=== PATIENT | male | born 1975 | race Caucasian/White ===

== ENCOUNTER 2018-10-01 15:35 | Inpatient (IN) | payer OTHER ==
[2018-10-01 19:27] VITALS: BMI 22.4
--- NOTE | 2018-10-01 19:53 | HP ---
CIWA Score Nausea/Vomitin Muscle Tremors: 3 Anxiety: 2 Agitation: 2 Paroxysmal Sweats: 2 Orientation: 0-Oriented Tacttile Disturbances: 2-Mild Itch/Numbness/Burn Auditory Disturbances: 2-Mild Harshness/Frighten Visual Disturbances: 2-Mild Sensitivity Headache: 1-Very Mild CIWA-Ar Total Score: 18 - Admission Criteria OASAS Guidelines: Admission for Medically Managed Detox: Requires at least one of the followin. CIWA greater than 12 2. Seizures within the past 24 hours 3. Delirium tremens within the past 24 hours 4. Hallucinations within the past 24 hours 5. Acute intervention needed for co occurring medical disorder 6. Acute intervention needed for co occurring psychiatric disorder 7. Severe withdrawal that cannot be handled at a lower level of care (continued vomiting, continued diarrhea, abnormal vital signs) requiring intravenous medication and/or fluids 8. Admission ROS BHS - HPI Chief Complaint: DEPENDENT ON ETOH AND OCCASIONALLY COCAINE ON 160 MGS. OF MMTP - LAST DOES THIS AM Allergies/Adverse Reactions: Allergies Allergy/AdvReac Type Severity Reaction Status Date / Time No Known Allergies Allergy Verified 10/01/18 18:12 History of Present Illness: THE PT. IS REQUESTING ADMISSION TO THE DETOX UNIT AND CAME FOR H AND PE - Ebola screening Have you traveled outside of the country in the last 21 days: No Have you had contact with anyone from an Ebola affected area: No Have you been sick,other than usual withdrawal symptoms: No Do you have a fever: No - Review of Systems Constitutional: See HPI, Malaise, Weakness EENT: reports: See HPI Respiratory: reports: See HPI Cardiac: reports: See HPI GI: reports: See HPI, Nausea, Vomiting, Abdominal cramping : reports: No Symptoms Reported, See HPI Musculoskeletal: reports: See HPI, Muscle Pain, Muscle Weakness Integumentary: reports: See HPI, Sweating Neuro: reports: See HPI, Headache, Tremors, Weakness Endocrine: reports: See HPI Hematology: reports: See HPI Psychiatric: reports: Judgement Intact, Orientated x3, Anxious, Depressed Patient History - Patient Medical History Hx Human Immunodeficiency Virus (HIV): No Hx Hepatitis C: Yes Hx Bipolar Disorder: Yes - Patient Surgical History Hx Orthopedic Surgery: Yes (SURGERY FOR C3-6 FRACTURES - 8 MONTHS AGO) Other Surgical History: DEVELOPED WEAKNESS IN RUL - Smoking Cessation Smoking history: Current every day smoker Have you smoked in the past 12 months: Yes Aproximately how many cigarettes per day: 10 Hx Chewing Tobacco Use: No Initiated information on smoking cessation: Yes 'Breaking Loose' booklet given: 10/01/18 - Substance & Tx. History Hx Alcohol Use: Yes Hx Substance Use: Yes Substance Use Type: Alcohol, Cocaine, Prescribed Hx Substance Use Treatment: Yes - Substances abused Alcohol Substance route: Oral Frequency: Daily Amount used: 2 PINTS VODKA + 15 x 24 OZ BEER Age of first use: 13 Date of last use: 10/01/18 Cocaine Substance route: Inhalation Frequency: 1-2 times per week Amount used: $20/each time Age of first use: 17 Date of last use: 09/27/18 Family Disease History - Family Disease History Family History: Denies Family Disease History: Other: Father (ETOH DEPENDENT) Admission Physical Exam BHS - Vital Signs Vital Signs: Vital Signs - 24 hr 10/01/18 10/01/18 18:10 19:25 Temperature 97.2 F L 97.2 F L Pulse Rate 66 66 Respiratory 18 18 Rate Blood Pressure 99/62 99/62 - Physical General Appearance: Yes: No Apparent Distress, Nourished, Appropriately Dressed , Alcohol on Breath, Tremorous, Sweating, Anxious HEENTM: Yes: Hearing grossly Normal, Normocephalic, Normal Voice, SIDRA, Pharynx Normal Respiratory: Yes: Chest Non-Tender, Lungs Clear, Normal Breath Sounds, No Respiratory Distress, No Accessory Muscle Use Neck: Yes: No masses,lesions,Nodules, Supple, Trachea in good position Breast: Yes: Breast Exam Deferred, Axillae without masses Cardiology: Yes: Regular Rhythm, Regular Rate, S1, S2 Abdominal: Yes: Normal Bowel Sounds, Non Tender, Flat Back: Yes: Normal Inspection Extremities: Yes: Normal Capillary Refill, Non-Tender, Tremors 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 FORE ARM AND HAND - OLD++ - Diagnostic (1) EtOH dependence Current Visit: Yes Status: Chronic Qualifiers: Substance use status: uncomplicated Qualified Code(s): F10.20 - Alcohol dependence, uncomplicated (2) Cocaine dependence Current Visit: Yes Status: Chronic Qualifiers: Substance use status: uncomplicated Qualified Code(s): F14.20 - Cocaine dependence, uncomplicated (3) Nicotine dependence Current Visit: Yes Status: Chronic Qualifiers: Nicotine product type: cigarettes Substance use status: uncomplicated Qualified Code(s): F17.210 - Nicotine dependence, cigarettes, uncomplicated (4) Hepatitis C Current Visit: Yes Status: Chronic (5) Bipolar 1 disorder Current Visit: Yes Status: Chronic (6) Anxiety disorder Current Visit: Yes Status: Chronic Qualifiers: Anxiety disorder type: generalized anxiety disorder Qualified Code(s): F41.1 - Generalized anxiety disorder Cleared for Admission S - Detox or Rehab [facility] Level of Care: Medically Managed Detox Regimen/Protocol: Librium Breathalyzer - Breathalyzer Breathalyzer: 0.109 Urine Drug Screen - Test Device Lot number: [id number] Expiration date: 05/04/20 - Control Is test valid?: Yes - Results Drug screen NEGATIVE: No Urine drug screen results: ADELA-Cocaine, FEN-Fentanyl, MOP-Opiates, MTD-Methadone , BZO-Benzodiazepines Inpatient Rehab Admission - Rehab Decision to Admit Inpatient rehab admission?: No
[2018-10-01] MEDS ORDERED: MAGNESIUM CITRATE 300 ML BOTTLE PO PRN (20:01)
[2018-10-01] MEDS ORDERED: MAG HYDROX/AL HYDROX/SIMETH 30 ML UNIT-DOSE CUP PO PRN (20:01)
[2018-10-01] MEDS ORDERED: hydrOXYzine PAMOATE 25 MG CAPSULE (FP) PO PRN (20:01)
[2018-10-01] MEDS ORDERED: ACETAMINOPHEN 325 MG TABLET (FP) PO PRN ×2 (20:01)
[2018-10-01] MEDS ORDERED: NICOTINE POLACRILEX 2 MG GUM BUC PRN (20:01)
[2018-10-01] MEDS ORDERED: MAGNESIUM HYDROX 2400MG/30ML ORAL SUSPENSION 30 ML CUP PO PRN (20:01)
[2018-10-01] MEDS ORDERED: METHOCARBAMOL 500 MG TABLET PO PRN (20:01)
[2018-10-01] MEDS ORDERED: MELATONIN 5 MG TABLETS PO PRN (20:01)
[2018-10-01] MEDS ORDERED: BISMUTH SUBSALICYLATE 524 MG/30 ML UD PO PRN (20:01)
[2018-10-01] MEDS ORDERED: chlordiazePOXIDE HCL 10 MG CAPSULE PO PRN (20:01)
[2018-10-01] MEDS ORDERED: MENTHOL/PHENOL 1 EACH UD MM PRN (20:01)
[2018-10-01] MEDS ORDERED: IBUPROFEN 400 MG TABLET (FP) PO PRN (20:01)
[2018-10-01] MEDS: THIAMINE HCL 100 MG TABLET (FP) PO SCH (21:28)
[2018-10-01] MEDS: chlordiazePOXIDE HCL 25 MG CAPSULE PO SCH (21:28)
[2018-10-02] MEDS: chlordiazePOXIDE HCL 25 MG CAPSULE PO SCH ×2 (05:49→12:57)
[2018-10-02 09:50] LABS: HEMATOCRIT 34.8 % (35.4-49); HEMOGLOBIN 10.9 GM/dL (11.7-16.9); MCH 22.6 pg (25.7-33.7); MCHC 31.3 g/dl (32.0-35.9); MEAN CELL VOLUME 72.3 fl (80-96); MEAN PLT VOLUME 8.8 fl (7.5-11.1); PLATELET COUNT 243 K/MM3 (134-434); RBC 4.82 M/mm3 (4.00-5.60); RDW 16.5 % (11.9-15.9); WHITE BLOOD COUNT 3.4 K/mm3 (4.0-10.0)
[2018-10-02 09:54] LABS: ALBUMIN 3.1 g/dl (3.4-5.0); ALK PHOS 131 U/L (45-117); ANION GAP 5 MMOL/L (8-16); BILIRUBIN,TOTAL 0.6 mg/dL (0.2-1); BLOOD UREA NITROGEN 10 mg/dL (7-18); CALCIUM 8.5 mg/dL (8.5-10.1); CHLORIDE 99 mmol/L (98-107); CO2 33 mmol/L (21-32); CREATININE 0.9 mg/dL (0.55-1.3); GLUCOSE,RANDOM 80 mg/dL (74-106); POTASSIUM 4.1 mmol/L (3.5-5.1); SGOT/AST 141 U/L (15-37); SGPT/ALT 85 U/L (13-61); SODIUM 137 mmol/L (136-145); TOT PROT 6.9 g/dl (6.4-8.2)
[2018-10-02] MEDS ORDERED: METHADONE HCL 40 MG DISPERSABLE TABLET PO ONE (10:00)
[2018-10-02] MEDS: NICOTINE 14 MG/24 HOURS TOPICAL PATCH TD SCH (10:33)
[2018-10-02] MEDS: PRENATAL VITAMINS W/ FOLIC ACID TABLET (FP) PO SCH (10:36)
--- NOTE | 2018-10-02 15:27 | PN ---
[facility] CIWA - CIWA Score Nausea/Vomitin-Mild Nausea/No Vomiting Muscle Tremors: 4-Moderate,w/Arms Extend Anxiety: 3 Agitation: 3 Paroxysmal Sweats: 1-Minimal Palms Moist Orientation: 1-Uncertain about Date Tacttile Disturbances: 0-None Auditory Disturbances: 0-None Visual Disturbances: 0-None Headache: 0-None Present CIWA-Ar Total Score: 13 S Progress Note (SOAP) Subjective: received methadon 160 mg po today feeling ok less body ache tolerate food and fluid well Objective: 10/02/18 15:25 Vital Signs Temperature 97.2 F L 10/02/18 14:11 Pulse Rate 65 10/02/18 14:11 Respiratory Rate 18 10/02/18 14:11 Blood Pressure 109/73 10/02/18 14:11 O2 Sat by Pulse Oximetry (%) Laboratory Last Values WBC 3.4 K/mm3 (4.0-10.0) L 10/02/18 07:00 RBC 4.82 M/mm3 (4.00-5.60) 10/02/18 07:00 Hgb 10.9 GM/dL (11.7-16.9) L 10/02/18 07:00 Hct 34.8 % (35.4-49) L 10/02/18 07:00 MCV 72.3 fl (80-96) L 10/02/18 07:00 MCH 22.6 pg (25.7-33.7) L 10/02/18 07:00 MCHC 31.3 g/dl (32.0-35.9) L 10/02/18 07:00 RDW 16.5 % (11.9-15.9) H 10/02/18 07:00 Plt Count 243 K/MM3 (134-434) 10/02/18 07:00 MPV 8.8 fl (7.5-11.1) 10/02/18 07:00 Sodium 137 mmol/L (136-145) 10/02/18 07:00 Potassium 4.1 mmol/L (3.5-5.1) 10/02/18 07:00 Chloride 99 mmol/L (98-107) 10/02/18 07:00 Carbon Dioxide 33 mmol/L (21-32) H 10/02/18 07:00 Anion Gap 5 MMOL/L (8-16) L 10/02/18 07:00 BUN 10 mg/dL (7-18) 10/02/18 07:00 Creatinine 0.9 mg/dL (0.55-1.3) 10/02/18 07:00 Creat Clearance w eGFR 91.25 (>60) 10/02/18 07:00 Random Glucose 80 mg/dL (74-106) 10/02/18 07:00 Calcium 8.5 mg/dL (8.5-10.1) 10/02/18 07:00 Total Bilirubin 0.6 mg/dL (0.2-1) 10/02/18 07:00 AST 141 U/L (15-37) H 10/02/18 07:00 ALT 85 U/L (13-61) H 10/02/18 07:00 Alkaline Phosphatase 131 U/L (45-117) H 10/02/18 07:00 Total Protein 6.9 g/dl (6.4-8.2) 10/02/18 07:00 Albumin 3.1 g/dl (3.4-5.0) L 10/02/18 07:00 RPR Titer Nonreactive (NONREACTIVE) 10/02/18 07:00 lab noted repeat ast Assessment: 10/02/18 15:26 alcohol withdrawal sx liver enzyme elevation Plan: continue detox
--- NOTE | 2018-10-02 18:24 | CONSULT ---
[facility] Psychiatric Consult - Data Date of interview: 10/02/18 Admission source: [facility] Identifying data: Patient is approached on THREE separate occasions for the psychiatric interview. Declines. " I am good. I don't need to see psychiatrists ".
[2018-10-02] MEDS: chlordiazePOXIDE 5 MG CAPSULE PO SCH (22:10)
[2018-10-02] MEDS: THIAMINE HCL 100 MG TABLET (FP) PO SCH (22:10)
[2018-10-02] MEDS: traZODone HCL 100 MG TABLET (FP) PO PRN (22:10)
[2018-10-03] MEDS: METHADONE HCL 40 MG DISPERSABLE TABLET PO SCH (05:22)
[2018-10-03] MEDS: chlordiazePOXIDE 5 MG CAPSULE PO SCH ×2 (05:22→13:13)
[2018-10-03 10:22] LABS: BILIRUBIN,DIRECT 0.2 mg/dL (0.0-0.2); BILIRUBIN,TOTAL 0.4 mg/dL (0.2-1); TOT PROT 6.6 g/dl (6.4-8.2)
[2018-10-03] MEDS: NICOTINE 14 MG/24 HOURS TOPICAL PATCH TD SCH (10:23)
[2018-10-03] MEDS: PRENATAL VITAMINS W/ FOLIC ACID TABLET (FP) PO SCH (10:24)
--- NOTE | 2018-10-03 10:37 | PN ---
[facility] CIWA - CIWA Score Nausea/Vomitin-Mild Nausea/No Vomiting Muscle Tremors: 3 Anxiety: 3 Agitation: 2 Paroxysmal Sweats: 1-Minimal Palms Moist Orientation: 0-Oriented Tacttile Disturbances: 0-None Auditory Disturbances: 0-None Visual Disturbances: 0-None Headache: 0-None Present CIWA-Ar Total Score: 10 S Progress Note (SOAP) Subjective: feeling ok today social with peers in day room Objective: 10/03/18 10:37 Vital Signs Temperature 100.1 F H 10/03/18 09:25 Pulse Rate 64 10/03/18 09:25 Respiratory Rate 18 10/03/18 09:25 Blood Pressure 104/55 L 10/03/18 09:25 O2 Sat by Pulse Oximetry (%) Laboratory Last Values WBC 3.4 K/mm3 (4.0-10.0) L 10/02/18 07:00 RBC 4.82 M/mm3 (4.00-5.60) 10/02/18 07:00 Hgb 10.9 GM/dL (11.7-16.9) L 10/02/18 07:00 Hct 34.8 % (35.4-49) L 10/02/18 07:00 MCV 72.3 fl (80-96) L 10/02/18 07:00 MCH 22.6 pg (25.7-33.7) L 10/02/18 07:00 MCHC 31.3 g/dl (32.0-35.9) L 10/02/18 07:00 RDW 16.5 % (11.9-15.9) H 10/02/18 07:00 Plt Count 243 K/MM3 (134-434) 10/02/18 07:00 MPV 8.8 fl (7.5-11.1) 10/02/18 07:00 Sodium 137 mmol/L (136-145) 10/02/18 07:00 Potassium 4.1 mmol/L (3.5-5.1) 10/02/18 07:00 Chloride 99 mmol/L (98-107) 10/02/18 07:00 Carbon Dioxide 33 mmol/L (21-32) H 10/02/18 07:00 Anion Gap 5 MMOL/L (8-16) L 10/02/18 07:00 BUN 10 mg/dL (7-18) 10/02/18 07:00 Creatinine 0.9 mg/dL (0.55-1.3) 10/02/18 07:00 Creat Clearance w eGFR 91.25 (>60) 10/02/18 07:00 Random Glucose 80 mg/dL (74-106) 10/02/18 07:00 Calcium 8.5 mg/dL (8.5-10.1) 10/02/18 07:00 Total Bilirubin 0.4 mg/dL (0.2-1) 10/03/18 07:00 Direct Bilirubin 0.2 mg/dL (0.0-0.2) 10/03/18 07:00 AST 113 U/L (15-37) H 10/03/18 07:00 ALT 82 U/L (13-61) H 10/03/18 07:00 Alkaline Phosphatase 131 U/L (45-117) H 10/03/18 07:00 Total Protein 6.6 g/dl (6.4-8.2) 10/03/18 07:00 Albumin 3.0 g/dl (3.4-5.0) L 10/03/18 07:00 RPR Titer Nonreactive (NONREACTIVE) 10/02/18 07:00 lab noted "I had coffee this morning" 10/03/18 10:38 Assessment: 10/03/18 10:39 alcohol withdrawal sx Plan: continue detox
[2018-10-03] MEDS ORDERED: chlordiazePOXIDE HCL 10 MG CAPSULE PO PRN (21:00)
[2018-10-03] MEDS: traZODone HCL 100 MG TABLET (FP) PO PRN (22:12)
[2018-10-03] MEDS: THIAMINE HCL 100 MG TABLET (FP) PO SCH (22:12)
[2018-10-03] MEDS: chlordiazePOXIDE HCL 10 MG CAPSULE PO SCH (22:12)
[2018-10-04] MEDS: chlordiazePOXIDE HCL 10 MG CAPSULE PO SCH (05:39)
[2018-10-04] MEDS: METHADONE HCL 40 MG DISPERSABLE TABLET PO SCH (05:39)
[2018-10-04 09:16] VITALS: BP 88/58; PULSE 67; TEMP 99.1
[2018-10-04] MEDS: NICOTINE 14 MG/24 HOURS TOPICAL PATCH TD SCH (10:30)
[2018-10-04] MEDS: PRENATAL VITAMINS W/ FOLIC ACID TABLET (FP) PO SCH (10:30)
--- NOTE | 2018-10-04 14:59 | DS ---
[facility] Detox Discharge Summary Admission Date: 10/01/18 Discharge Date: 10/04/18 - History Present History: Alcohol Dependence Additional Comments: 43 years old male admitted on 10/01/18 for alcohol withdrawal stabilization feeling better today preferring begin rehab today aftercare [facility] transportation provided Pertinent Past History: bring in medication list and lab report to aftercare appointment - Physical Exam Results Vital Signs: Vital Signs Temperature 99.1 F 10/04/18 09:16 Pulse Rate 67 10/04/18 09:16 Respiratory Rate 18 10/04/18 09:16 Blood Pressure 88/58 L 10/04/18 09:16 O2 Sat by Pulse Oximetry (%) Pertinent Admission Physical Exam Findings: alcohol withdrawal sx Laboratory Last Values WBC 3.4 K/mm3 (4.0-10.0) L 10/02/18 07:00 RBC 4.82 M/mm3 (4.00-5.60) 10/02/18 07:00 Hgb 10.9 GM/dL (11.7-16.9) L 10/02/18 07:00 Hct 34.8 % (35.4-49) L 10/02/18 07:00 MCV 72.3 fl (80-96) L 10/02/18 07:00 MCH 22.6 pg (25.7-33.7) L 10/02/18 07:00 MCHC 31.3 g/dl (32.0-35.9) L 10/02/18 07:00 RDW 16.5 % (11.9-15.9) H 10/02/18 07:00 Plt Count 243 K/MM3 (134-434) 10/02/18 07:00 MPV 8.8 fl (7.5-11.1) 10/02/18 07:00 Sodium 137 mmol/L (136-145) 10/02/18 07:00 Potassium 4.1 mmol/L (3.5-5.1) 10/02/18 07:00 Chloride 99 mmol/L (98-107) 10/02/18 07:00 Carbon Dioxide 33 mmol/L (21-32) H 10/02/18 07:00 Anion Gap 5 MMOL/L (8-16) L 10/02/18 07:00 BUN 10 mg/dL (7-18) 10/02/18 07:00 Creatinine 0.9 mg/dL (0.55-1.3) 10/02/18 07:00 Creat Clearance w eGFR 91.25 (>60) 10/02/18 07:00 Random Glucose 80 mg/dL (74-106) 10/02/18 07:00 Calcium 8.5 mg/dL (8.5-10.1) 10/02/18 07:00 Total Bilirubin 0.4 mg/dL (0.2-1) 10/03/18 07:00 Direct Bilirubin 0.2 mg/dL (0.0-0.2) 10/03/18 07:00 AST 113 U/L (15-37) H 10/03/18 07:00 ALT 82 U/L (13-61) H 10/03/18 07:00 Alkaline Phosphatase 131 U/L (45-117) H 10/03/18 07:00 Total Protein 6.6 g/dl (6.4-8.2) 10/03/18 07:00 Albumin 3.0 g/dl (3.4-5.0) L 10/03/18 07:00 RPR Titer Nonreactive (NONREACTIVE) 10/02/18 07:00 lab noted - Treatment Hospital Course: Detox Protocol Followed, Detoxed Safely, Responded well, Discharged Condition Good, Rehab Referral Accepted Patient has Accepted a Rehab Referral to: [facility] - Medication Discharge Medications: Ambulatory Orders NK [No Known Home Medication] 10/01/18 - Diagnosis (1) Alcohol dependence with uncomplicated withdrawal Status: Acute (2) Hepatitis C Status: Chronic Qualifiers: Viral hepatitis chronicity: unspecified Hepatic coma status: without hepatic coma Qualified Code(s): B19.20 - Unspecified viral hepatitis C without hepatic coma (3) Nicotine dependence Status: Acute Qualifiers: Nicotine product type: cigarettes Substance use status: in withdrawal Qualified Code(s): F17.213 - Nicotine dependence, cigarettes, with withdrawal - AMA Did Patient Leave Against Medical Advice: No
== END 2018-10-04 09:30 | disposition home or self-care (01) | DRG 774 ==
LOC: YASAS 15:35 → Y3N 20:38
PROVIDERS: ADMIT Surgery; ATTEND Surgery
PROC: HZ2ZZZZ Detoxification Services for Substance Abuse Treatment (ICD-10-PCS; principal; 2018-10-01)
DX: F10.230 Alcohol dependence with withdrawal, uncomplicated (principal); F14.20 Cocaine dependence, uncomplicated; F17.210 Nicotine dependence, cigarettes, uncomplicated; F31.9 Bipolar disorder, unspecified; B19.20 Unspecified viral hepatitis C without hepatic coma; R74.8 Abnormal levels of other serum enzymes; R94.5 Abnormal results of liver function studies
CPT/HCPCS: 36415; 80053; 80076; 85027; 86593

== ENCOUNTER 2019-11-27 10:57 | Inpatient (IN) | payer OTHER ==
--- NOTE | 2019-11-27 11:24 | BHS.RME ---
Substance Use & Tx History - Substance Use History Alcohol Substance amount: 16 24 oz beers Frequency of use: Daily Substance route: Oral Date of Last Use: 11/27/19 Cocaine- Powder Substance amount: $20 Frequency of use: Daily Substance route: Inhalation (ex: sniffing or snorting) Date of Last Use: 11/26/19 Nicotine Substance amount: 1/2 pack Frequency of use: Daily Substance route: Smoking Date of Last Use: 11/27/19 - Last Treatment Date of last treatment: 10/01-10/04/18 Treatment type: Substance Use Disorder ([facility]) Where was last treatment: Detox Physical/Psych/Mental Status - Behavior General Behavior: Decreased activity Eye Contact: Normal - Cooperativeness Cooperativeness: Cooperative - Thinking Thought Processes: Tight, Logical, Goal Directed - Physical Health Problems Is patient presently having any pain?: No Does patient presently have any injuries (include location): No Does patient currently have a fever: No Is patient : No CIWA Nausea/Vomitin-No Nausea/No Vomiting Muscle Tremors: 1-None Visible, but [place] Anxiety: 2 Agitation: 2 Paroxysmal Sweats: No Perspiration Orientation: 0-Oriented Tacttile Disturbances: 0-None Auditory Disturbances: 0-None Visual Disturbances: 0-None Headache: 0-None Present (alcohol intoxication so minimal withdrawals.) CIWA-Ar Total Score: 5
--- NOTE | 2019-11-27 12:22 | HP ---
CIWA Score Nausea/Vomitin-No Nausea/No Vomiting Muscle Tremors: 1-None Visible, but [place] Anxiety: 2 Agitation: 2 Paroxysmal Sweats: No Perspiration Orientation: 0-Oriented Tacttile Disturbances: 0-None Auditory Disturbances: 0-None Visual Disturbances: 0-None Headache: 0-None Present (alcohol intoxication so minimal withdrawals.) CIWA-Ar Total Score: 5 - Admission Criteria OASAS Guidelines: Admission for Medically Managed Detox: Requires at least one of the followin. CIWA greater than 12 2. Seizures within the past 24 hours 3. Delirium tremens within the past 24 hours 4. Hallucinations within the past 24 hours 5. Acute intervention needed for co occurring medical disorder 6. Acute intervention needed for co occurring psychiatric disorder 7. Severe withdrawal that cannot be handled at a lower level of care (continued vomiting, continued diarrhea, abnormal vital signs) requiring intravenous medication and/or fluids 8. Admitting History and Physical - Admission Chief Complaint: " I want to change my life." History of Present Illness: 44 year old male with history of alcohol dependence with intoxication, opioid dependence on agonist therapy. He was last here in 10/01-10/04/18 was given early discharge with referral to rehab but did not follow up. He relapsed immediately thereafter. He wants to do detox and then go to medical terminologist rehab [place]. [facility] is [facility] today at 190mg of methadone daily. Alcohol: 16 24 oz beers daily, started at age 12 and last used 11/27/19 at 6AM, has had blackout just 1 month ago, needs eye senior analytical chemist daily Cocaine: $20 3x/wk, [place] started at age 17 and last used 11/26/19 Nicotine: 1/2 pack daily, started at age 13 and last used today PMH: HCV positive untreated, anemia Psurg: C3-C4 fractures in 2019 and surgeries Psych: Depression, Insomnia (trazadone 100 mg QHS) He is homeless and living on the streets. He meets criteria for detox because he is at high risk for relapse. Breathalyzer: 0.084 CIWA= 5 History Source: Patient Limitations to Obtaining History: No Limitations - Past Medical History Hepatobiliary: Yes: Hepatitis C Heme/Onc: Yes: Anemia - Past Surgical History Additional Past Surgical History: C3-C6 spinal surgery from fractures - Smoking History Smoking history: Current every day smoker Have you smoked in the past 12 months: Yes Aproximately how many cigarettes per day: 10 - Alcohol/Substance Use Hx Alcohol Use: Yes - Social History Usual Living Arrangement: Yes: Alone Do you think of yourself as: Straight/Heterosexual ADL: Independent Occupation: unemployed, flyer History of Recent Travel: No Admission ROS S - HPI Allergies/Adverse Reactions: Allergies Allergy/AdvReac Type Severity Reaction Status Date / Time No Known Allergies Allergy Verified 10/01/18 18:12 Exam Limitations: No Limitations - Ebola screening Have you traveled outside of the country in the last 21 days: No Have you had contact with anyone from an Ebola affected area: No Have you been sick,other than usual withdrawal symptoms: No Do you have a fever: No - Review of Systems Constitutional: No Symptoms Reported EENT: reports: No Symptoms Reported Respiratory: reports: No Symptoms reported Cardiac: reports: No Symptoms Reported GI: reports: No Symptoms Reported : reports: No Symptoms Reported Musculoskeletal: reports: No Symptoms Reported Integumentary: reports: No Symptoms Reported Neuro: reports: No Symptoms reported Endocrine: reports: No Symptoms Reported Hematology: reports: No Symptoms Reported Psychiatric: reports: Judgement Intact, Mood/Affect Appropiate, Orientated x3, Agitated, Anxious Other Systems: Reviewed and Negative Patient History - Patient Medical History Hx Asthma: No Hx Chronic Obstructive Pulmonary Disease (COPD): No Hx Cardiac Disorders: No Hx Hypertension: No Hx Seizures: No Hx Diabetes: No Hx Gastrointestinal Disorders: No Hx Genitourinary Disorders: No Hx Sexually Transmitted Disorders: No Hx Renal Disease (ESRD): No Hx Human Immunodeficiency Virus (HIV): No Hx Hepatitis C: Yes Hx Depression: Yes Hx Suicide Attempt: No Hx Bipolar Disorder: Yes Hx Schizophrenia: No - Patient Surgical History Past Surgical History: No Hx Neurologic Surgery: No Hx Cataract Extraction: No Hx Cardiac Surgery: No Hx Lung Surgery: No Hx Breast Surgery: No Hx Breast Biopsy: No Hx Abdominal Surgery: No Hx Appendectomy: No Hx Cholecystectomy: No Hx Genitourinary Surgery: No Hx Section: No Hx Orthopedic Surgery: Yes (SURGERY FOR C3-6 FRACTURES - 8 MONTHS AGO) Other Surgical History: DEVELOPED WEAKNESS IN RUL Anesthesia Reaction: No - PPD History Previous Implant?: Yes Documented Results: Negative w/proof Implanted On Prior [facility] Admission?: Yes Date: 10/03/18 PPD to be Administered?: Yes - Smoking Cessation Smoking history: Current every day smoker Have you smoked in the past 12 months: Yes Aproximately how many cigarettes per day: 10 Hx Chewing Tobacco Use: No Initiated information on smoking cessation: Yes 'Breaking Loose' booklet given: 11/27/19 - Substances abused Alcohol Substance route: Oral Frequency: Daily Amount used: 16 24 oz beers Age of first use: 12 Date of last use: 11/27/19 Cocaine Substance route: Inhalation Frequency: Daily Amount used: $20 Age of first use: 17 Date of last use: 11/26/19 Cleared for Admission [facility] - Detox or Rehab [facility] Level of Care: Medically Managed Detox Regimen/Protocol: Librium Claeared for Rehab Admission: No Screened but not Admitted - Documentation of Visit Screened but not Admitted: No Breathalyzer - Breathalyzer Breathalyzer: 0.084 Urine Drug Screen - Test Device Lot number: [id number] Expiration date: 02/02/21 - Control Is test valid?: Yes - Results Drug screen NEGATIVE: No Urine drug screen results: ADELA-Cocaine, FEN-Fentanyl, MOP-Opiates, MTD- Methadone, BZO-Benzodiazepines Inpatient Rehab Admission - Rehab Decision to Admit Inpatient rehab admission?: No
[2019-11-27] MEDS ORDERED: ONDANSETRON *ODT* 4 MG TABLET SL ONE (12:28)
[2019-11-27] MEDS ORDERED: MENTHOL/PHENOL 1 EACH UD MM PRN (12:28)
[2019-11-27] MEDS ORDERED: NICOTINE POLACRILEX 2 MG GUM BUC PRN (12:28)
[2019-11-27] MEDS ORDERED: METHOCARBAMOL 500 MG TABLET PO PRN (12:28)
[2019-11-27] MEDS ORDERED: IBUPROFEN 400 MG TABLET (FP) PO PRN (12:28)
[2019-11-27] MEDS ORDERED: MAGNESIUM HYDROX 2400MG/30ML ORAL SUSPENSION 30 ML CUP PO PRN (12:28)
[2019-11-27] MEDS ORDERED: ACETAMINOPHEN 325 MG TABLET (FP) PO PRN ×2 (12:28)
[2019-11-27] MEDS ORDERED: MAGNESIUM CITRATE 300 ML BOTTLE PO PRN (12:28)
[2019-11-27] MEDS ORDERED: chlordiazePOXIDE HCL 25 MG CAPSULE PO PRN (12:28)
[2019-11-27] MEDS ORDERED: BISMUTH SUBSALICYLATE 524 MG/30 ML UD PO PRN (12:28)
[2019-11-27] MEDS ORDERED: MAG HYDROX/AL HYDROX/SIMETH 30 ML UNIT-DOSE CUP PO PRN (12:28)
[2019-11-27 13:38] VITALS: BMI 20.2
[2019-11-27] MEDS: chlordiazePOXIDE HCL 25 MG CAPSULE PO SCH ×3 (14:57→22:32)
[2019-11-27] MEDS: hydrOXYzine PAMOATE 25 MG CAPSULE (FP) PO SCH ×3 (14:57→22:32)
[2019-11-27] MEDS: NICOTINE 7 MG/24 HOURS TOPICAL PATCH TD SCH (14:59)
[2019-11-27] MEDS: PRENATAL VITAMINS W/ FOLIC ACID TABLET (FP) PO SCH (14:59)
[2019-11-27 18:09] LABS: HEMATOCRIT 30.9 % (35.4-49); HEMOGLOBIN 9.7 GM/dL (11.7-16.9); MCH 21.6 pg (25.7-33.7); MCHC 31.5 g/dl (32.0-35.9); MEAN CELL VOLUME 68.5 fl (80-96); MEAN PLT VOLUME 8.6 fl (7.5-11.1); PLATELET COUNT 293 K/MM3 (134-434); RBC 4.51 M/mm3 (4.00-5.60); RDW 18.2 % (11.9-15.9)
[2019-11-27 18:18] LABS: ALBUMIN 3.6 g/dl (3.4-5.0); BILIRUBIN,TOTAL 1.1 mg/dL (0.2-1); BLOOD UREA NITROGEN 9.8 mg/dL (7-18); CALCIUM 8.4 mg/dL (8.5-10.1); CREATININE 0.8 mg/dL (0.55-1.3); POTASSIUM 4.1 mmol/L (3.5-5.1); TOT PROT 7.8 g/dl (6.4-8.2)
[2019-11-27] MEDS: THIAMINE HCL 100 MG TABLET (FP) PO SCH (22:32)
[2019-11-27] MEDS: MELATONIN 5 MG TABLETS PO SCH (22:32)
[2019-11-28] MEDS: chlordiazePOXIDE HCL 25 MG CAPSULE PO SCH ×2 (05:41→10:06)
[2019-11-28] MEDS: hydrOXYzine PAMOATE 25 MG CAPSULE (FP) PO SCH ×5 (05:41→22:10)
--- NOTE | 2019-11-28 08:57 | PN ---
S CIWA - CIWA Score Nausea/Vomitin-Mild Nausea/No Vomiting Muscle Tremors: 2 Anxiety: 2 Agitation: 1-Slight > Activity Paroxysmal Sweats: 1-Minimal Palms Moist Orientation: 0-Oriented Tacttile Disturbances: 1-Very Mild Itch/Numbness Auditory Disturbances: 0-None Visual Disturbances: 2-Mild Sensitivity Headache: 2-Mild CIWA-Ar Total Score: 12 BHS Progress Note (SOAP) Subjective: 44 YEARS OLD MALE ADMITTED ON 11/27/19 FOR ALCOHOL WITHDRAWAL SX MANAGEMENT TREATING WITH LIBRIUM DETOX REGIMENT RECEIVED METHADONE CONFIRMATION THAT THE PATIENT IS TAKING METHADONE 190 MG PO DAILY LAST DOSE 11/27/19 ONE DOSE OF METHADONE 190 MG TODAY AROUND 10 AM METHADONE 190 MG PO AROUND 6 AM BEGIN TOMORROW 11/29/19 MR MARTINEZ IS TAKING TRAZODINE FOR DEPRESSION PSYCHIATRIC REFERRAL reports small hard stool citroma x 1 Objective: 11/28/19 13:55 Vital Signs - 24 hr 11/27/19 11/27/19 11/27/19 14:21 16:45 20:41 Temperature 97.3 F L 97.5 F L 97.5 F L Pulse Rate 64 52 L 60 Respiratory 18 16 16 Rate Blood Pressure 103/68 110/57 L 104/67 O2 Sat by Pulse 98 96 Oximetry (%) 11/28/19 11/28/19 11/28/19 00:29 03:39 06:12 Temperature 97.4 F L Pulse Rate 61 Respiratory 18 18 18 Rate Blood Pressure 100/67 O2 Sat by Pulse 97 Oximetry (%) 11/28/19 11/28/19 11/28/19 06:30 08:45 12:54 Temperature 97.3 F L 97.7 F Pulse Rate 57 L 54 L Respiratory 18 18 18 Rate Blood Pressure 118/63 114/77 O2 Sat by Pulse 97 Oximetry (%) Laboratory Tests 11/27/19 11/27/19 11/27/19 13:05 13:05 13:05 WBC 4.0 RBC 4.51 Hgb 9.7 L Hct 30.9 L MCV 68.5 L MCH 21.6 L MCHC 31.5 L RDW 18.2 H Plt Count 293 D MPV 8.6 Sodium 135 L Potassium 4.1 Chloride 100 Carbon Dioxide 25 Anion Gap 9 BUN 9.8 Creatinine 0.8 Est GFR (CKD-EPI)AfAm 124.16 Est GFR (CKD-EPI)NonAf 107.13 Random Glucose 98 Calcium 8.4 L Total Bilirubin 1.1 H AST 118 H ALT 80 H Alkaline Phosphatase 108 Total Protein 7.8 Albumin 3.6 Syphilis Serology Non-reactive ast elevation discontinue tylenal discontinue librium begin ativan alcohol detox regiment 11/28/19 13:57 Assessment: 11/28/19 14:06 alcohol withdrawal Plan: ativan regiment
[2019-11-28] MEDS ORDERED: METHADONE HCL 40 MG DISPERSABLE TABLET ONE (09:32)
[2019-11-28] MEDS ORDERED: METHADONE HCL 10 MG TABLET ONE (09:32)
[2019-11-28] MEDS ORDERED: METHADONE HCL 10 MG TABLET PO ONE (10:00)
[2019-11-28] MEDS ORDERED: METHADONE 160 MG, METHADONE 30 MG PO ONE (10:00)
[2019-11-28] MEDS: NICOTINE 7 MG/24 HOURS TOPICAL PATCH TD SCH (10:06)
[2019-11-28] MEDS: PRENATAL VITAMINS W/ FOLIC ACID TABLET (FP) PO SCH (10:06)
[2019-11-28] MEDS: LORazepam 1 MG TABLET PO PRN (14:57)
--- NOTE | 2019-11-28 14:59 | CONSULT ---
[facility] Psychiatric Consult - Data Date of interview: 11/28/19 Admission source: [facility] Identifying data: Patient is a 45 year old male, father of three, unemployed, homeless, and is not currently receiving financial assistance. This is one of multiple admissions for patient. Patient admitted to for detox for alcohol, cocaine, and opiate dependence. Substance Abuse History: Smoking Cessation. Smoking history: Current every day smoker. Have you smoked in the past 12 months: Yes. Aproximately how many cigarettes per day: 10. Hx Chewing Tobacco Use: No. Initiated information on smoking cessation: Yes. 'Breaking Loose' booklet given: 11/27/19. - Substances abused. Alcohol. Substance route: Oral. Frequency: Daily. Amount used: 16 24 oz beers. Age of first use: 12. Date of last use: 11/27/19. Cocaine. Substance route: Inhalation. Frequency: Daily. Amount used: $20. Age of first use: 17. Date of last use: 11/26/19 Medical History: HCV positive untreated, anemia, C3-C4 fractures in 2019 and surgeries Psychiatric History: Mr. Barton reports history of two psychiatric hospitalizations ([facility]), most recently at [facility] in 2006. Mr. Barton reports history of multiple suicide attempt by overdose and self mutilation (cutting on forearm). Reports past trials of Celexa, vistaril and klonopin. Reports past diagnosis of depression and bipolar disorder. States that he is currently provided with outpatient psychiatric care in the [place], [place] and is prescribed Trazodone 100mg HS. Patient denies thoughts or urgres to hurt self others. At present patient reports difficulty sleeping. Physical/Sexual Abuse/Trauma History: denies. Mental Status Exam - Mental Status Exam Alert and Oriented to: Time, Place, Person Cognitive Function: Good Patient Appearance: Well Groomed Mood: Withdrawn Affect: Mood Congruent Patient Behavior: Fatigued (Lethargic) Speech Pattern: Delayed Voice Loudness: Mildly Soft/Quiet Thought Process: Goal Oriented Thought Disorder: Not Present Hallucinations: Denies Suicidal Ideation: Denies Homicidal Ideation: Denies Insight/Judgement: Poor Sleep: Poorly Appetite: Fair Muscle strength/Tone: Normal Gait/Station: Normal Psychiatric Findings - Problem List ([place] 1, 2,3) (1) Methadone maintenance therapy patient Current Visit: Yes Status: Chronic (2) Alcohol dependence with uncomplicated withdrawal Current Visit: Yes Status: Acute (3) Nicotine dependence Current Visit: Yes Status: Chronic Qualifiers: Nicotine product type: cigarettes Substance use status: in withdrawal Qualified Code(s): F17.213 - Nicotine dependence, cigarettes, with withdrawal (4) Cocaine dependence Current Visit: Yes Status: Chronic Qualifiers: Substance use status: uncomplicated Qualified Code(s): F14.20 - Cocaine dependence, uncomplicated (5) Substance induced mood disorder Current Visit: Yes Status: Acute (6) Mood disorder Current Visit: No Status: Suspected - Initial Treatment Plan Initial Treatment Plan: Psychoeducation provided. Detoxification in progress. Will order Trazodone 100mg HS. Benefits and side effects discussed. Verbal consent given.
[2019-11-28] MEDS: LORazepam 2 MG TABLET PO SCH ×2 (17:47→22:10)
--- NOTE | 2019-11-28 18:50 | PN ---
[facility] Progress Note Note: pt c/o itchy feet requesting ointment P : Tinactin ordered.
[2019-11-28] MEDS: TOLNAFTATE 1% CREAM 15 GM TUBE TP SCH (22:09)
[2019-11-28] MEDS: traZODone HCL 100 MG TABLET (FP) PO SCH (22:10)
[2019-11-28] MEDS: MELATONIN 5 MG TABLETS PO SCH (22:10)
[2019-11-28] MEDS: THIAMINE HCL 100 MG TABLET (FP) PO SCH (22:10)
[2019-11-29] MEDS ORDERED: METHADONE HCL 10 MG TABLET ONE (04:13)
[2019-11-29] MEDS ORDERED: METHADONE HCL 40 MG DISPERSABLE TABLET ONE (04:14)
[2019-11-29] MEDS ORDERED: chlordiazePOXIDE HCL 25 MG CAPSULE PO SCH (05:00)
[2019-11-29] MEDS: METHADONE 160 MG, METHADONE 30 MG PO SCH (05:33)
[2019-11-29] MEDS: LORazepam 2 MG TABLET PO SCH ×4 (05:34→22:11)
[2019-11-29] MEDS: hydrOXYzine PAMOATE 25 MG CAPSULE (FP) PO SCH ×5 (05:34→22:12)
[2019-11-29] MEDS ORDERED: METHADONE HCL 10 MG TABLET PO SCH (06:00)
--- NOTE | 2019-11-29 09:01 | PN ---
S CIWA - CIWA Score Nausea/Vomitin Muscle Tremors: None Anxiety: 1-Mildly Anxious Agitation: 0-Normal Activity Paroxysmal Sweats: 2 Orientation: 1-Uncertain about Date Tacttile Disturbances: 0-None Auditory Disturbances: 0-None Visual Disturbances: 0-None Headache: 2-Mild CIWA-Ar Total Score: 8 S Progress Note (SOAP) Subjective: GI upset, asking for Ensure Objective: 11/29/19 09:01 44 year old male with history of alcohol dependence with intoxication, opioid dependence on agonist therapy. He was last here in 10/01-10/04/18 was given early discharge with referral to rehab but did not follow up. He relapsed immediately thereafter. He was admitted 2 days ago to detox. 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 He is a [facility] today at 190mg of methadone daily. Alcohol: 16 24 oz beers daily, started at age 12 and last used 11/27/19 at 6AM, has had blackout just 1 month ago, needs eye linux consultant daily Cocaine: $20 3x/wk, [place] started at age 17 and last used 11/26/19 Nicotine: 1/2 pack daily, started at age 13 and last used today PMH: HCV positive untreated, anemia Psurg: C3-C4 fractures in 2019 and surgeries Psych: Depression, Insomnia (trazadone 100 mg QHS) He is homeless and living on the streets. PE Gnl: WDWN, slender MS: awake, alert Motor: moves limbs well Coord: nl Gait: steady Home Medication List Medication Instructions Recorded Confirmed Type traZODone HCL [Trazodone HCl] 100 mg PO HS 11/27/19 11/27/19 History Active Medications Generic Name Dose Route Start Last Admin Trade Name Freq PRN Reason Stop Dose Admin Al Hydroxide/Mg Hydroxide 30 ml 11/27/19 12:28 Mylanta Oral Suspension - PO Q6H PRN DYSPEPSIA Bismuth Subsalicylate 524 mg 11/27/19 12:28 Pepto-Bismol - PO Q1H PRN DIARRHEA Eucalyptus/Menthol/Phenol/Sorbitol 1 each 11/27/19 12:28 Cepastat Lozenge - MM 12/03/19 12:28 Q4H PRN SORE THROAT Hydroxyzine Pamoate 25 mg 11/27/19 14:00 11/29/19 05:34 Vistaril - PO 12/03/19 12:28 25 mg Q4HWA GRAY Administration Ibuprofen 400 mg 11/27/19 12:28 Motrin - PO Q6H PRN PAIN LEVEL 1 - 3 Lorazepam 1 mg 11/30/19 05:00 Ativan - PO 11/30/19 23:01 0500,1100,1700,2300 GRAY Lorazepam 1 mg 11/28/19 14:00 11/28/19 14:57 Ativan - PO 11/30/19 23:59 1 mg Q4H PRN Administration Symptoms of Withdrawal Lorazepam 2 mg 11/28/19 17:00 11/29/19 05:34 Ativan PO 11/29/19 23:01 2 mg 0500,1100,1700,2300 GRAY Administration Lorazepam 0.5 mg 12/01/19 05:00 Ativan - PO 12/01/19 23:01 Q6H GRAY Lorazepam 0.5 mg 12/01/19 00:00 Ativan - PO 12/02/19 00:00 Q4H PRN Symptoms of Withdrawal Lorazepam 0.5 mg 12/02/19 05:00 Ativan - PO 12/02/19 05:01 ONCE ONE Magnesium Citrate 300 ml 11/27/19 12:28 11/28/19 10:58 Citroma - PO 300 ml Q48H PRN Administration CONSTIPATION Magnesium Hydroxide 30 ml 11/27/19 12:28 Milk Of Magnesia - PO PRN PRN CONSTIPATION Melatonin 5 mg 11/27/19 22:00 11/28/19 22:10 Melatonin PO 5 mg HS GRAY Administration Methadone HCl 160 mg/ 190 mg 11/29/19 06:00 11/29/19 05:33 Methadone HCl 30 mg PO 12/05/19 06:01 190 mg DAILY@0600 GRAY Administration Methocarbamol 500 mg 11/27/19 12:28 11/28/19 10:06 Robaxin - PO 12/03/19 12:28 500 mg Q6H PRN Administration MUSCLE SPASMS Nicotine 7 mg 11/27/19 12:30 11/28/19 10:06 Nicoderm Patch - TD Not Given DAILY COUNT INCLUDES THE [facility] Nicotine Polacrilex 2 mg 11/27/19 12:28 Nicorette Gum - BUC Q2H PRN NICOTINE REPLACEMENT RX Multivit/Folic Acid/Iron 1 tab 11/27/19 12:30 11/28/19 10:06 Vitamins (Sjr) - PO 1 tab DAILY GRAY Administration Thiamine HCl 100 mg 11/27/19 22:00 11/28/19 22:10 Vitamin B1 - PO 100 mg HS GRAY Administration Tolnaftate 1 applic 11/28/19 22:00 11/28/19 22:09 Tinactin 1% Cream - TP 1 applic BID GRAY Administration Trazodone HCl 100 mg 11/28/19 22:00 11/28/19 22:10 Desyrel - PO 100 mg HS GRAY Administration Laboratory Tests 11/27/19 11/27/19 11/27/19 13:05 13:05 13:05 WBC 4.0 RBC 4.51 Hgb 9.7 L Hct 30.9 L MCV 68.5 L MCH 21.6 L MCHC 31.5 L RDW 18.2 H Plt Count 293 D MPV 8.6 Sodium 135 L Potassium 4.1 Chloride 100 Carbon Dioxide 25 Anion Gap 9 BUN 9.8 Creatinine 0.8 Est GFR (CKD-EPI)AfAm 124.16 Est GFR (CKD-EPI)NonAf 107.13 Random Glucose 98 Calcium 8.4 L Total Bilirubin 1.1 H AST 118 H ALT 80 H Alkaline Phosphatase 108 Total Protein 7.8 Albumin 3.6 Syphilis Serology Non-reactive COVID-19 (SANJUANITA) 11/27/19 14:15 WBC RBC Hgb Hct MCV MCH MCHC RDW Plt Count MPV Sodium Potassium Chloride Carbon Dioxide Anion Gap BUN Creatinine Est GFR (CKD-EPI)AfAm Est GFR (CKD-EPI)NonAf Random Glucose Calcium Total Bilirubin AST ALT Alkaline Phosphatase Total Protein Albumin Syphilis Serology COVID-19 (SANJUANITA) Not detected Vital Signs Temperature 98.0 F 11/29/19 08:38 Pulse Rate 56 L 11/29/19 08:38 Respiratory Rate 18 11/29/19 08:38 Blood Pressure 104/75 11/29/19 08:38 O2 Sat by Pulse Oximetry (%) 97 11/29/19 05:25 Assessment: 11/29/19 09:04 1. Alcohol use disorder 2. Opioid use disorder on maintenance 3. GI upset Plan: 1. Ativan detox protocol, projected finish 12/01 2. Continue Methadone maintenance 3. Add Ensure at pts request
[2019-11-29] MEDS: TOLNAFTATE 1% CREAM 15 GM TUBE TP SCH ×2 (10:23→22:12)
[2019-11-29] MEDS: PRENATAL VITAMINS W/ FOLIC ACID TABLET (FP) PO SCH (10:23)
[2019-11-29] MEDS: NICOTINE 7 MG/24 HOURS TOPICAL PATCH TD SCH (10:24)
[2019-11-29] MEDS: LORazepam 1 MG TABLET PO PRN (18:00)
[2019-11-29] MEDS ORDERED: MASKS NR ONE (20:16)
[2019-11-29] MEDS: THIAMINE HCL 100 MG TABLET (FP) PO SCH (22:10)
[2019-11-29] MEDS: traZODone HCL 100 MG TABLET (FP) PO SCH (22:11)
[2019-11-29] MEDS: MELATONIN 5 MG TABLETS PO SCH (22:12)
[2019-11-30] MEDS ORDERED: chlordiazePOXIDE HCL 10 MG CAPSULE PO PRN
[2019-11-30] MEDS ORDERED: METHADONE HCL 40 MG DISPERSABLE TABLET ONE (04:44)
[2019-11-30] MEDS ORDERED: METHADONE HCL 10 MG TABLET ONE (04:44)
[2019-11-30] MEDS ORDERED: chlordiazePOXIDE HCL 10 MG CAPSULE PO SCH (05:00)
[2019-11-30] MEDS: METHADONE 160 MG, METHADONE 30 MG PO SCH (05:23)
[2019-11-30] MEDS: hydrOXYzine PAMOATE 25 MG CAPSULE (FP) PO SCH ×5 (05:24→22:04)
[2019-11-30] MEDS: LORazepam 1 MG TABLET PO SCH ×4 (05:24→22:04)
[2019-11-30] MEDS: NICOTINE 7 MG/24 HOURS TOPICAL PATCH TD SCH (10:27)
[2019-11-30] MEDS: TOLNAFTATE 1% CREAM 15 GM TUBE TP SCH ×2 (10:27→22:04)
[2019-11-30] MEDS: PRENATAL VITAMINS W/ FOLIC ACID TABLET (FP) PO SCH (10:27)
--- NOTE | 2019-11-30 10:58 | PN ---
S CIWA - CIWA Score Nausea/Vomitin-No Nausea/No Vomiting Muscle Tremors: None Anxiety: 2 Agitation: 0-Normal Activity Paroxysmal Sweats: 2 Orientation: 0-Oriented Tacttile Disturbances: 0-None Auditory Disturbances: 0-None Visual Disturbances: 0-None Headache: 2-Mild CIWA-Ar Total Score: 6 BHS Progress Note (SOAP) Subjective: c/o headache, sweats, and anxiety. Objective: 11/30/19 10:57 Vital Signs 11/30/19 11/30/19 06:12 08:40 Temperature 98.0 F 97.5 F L Pulse Rate 60 71 Respiratory 18 18 Rate Blood Pressure 123/70 93/60 O2 Sat by Pulse 97 Oximetry (%) Laboratory Last Values WBC 4.0 K/mm3 (4.0-10.0) 11/27/19 13:05 RBC 4.51 M/mm3 (4.00-5.60) 11/27/19 13:05 Hgb 9.7 GM/dL (11.7-16.9) L 11/27/19 13:05 Hct 30.9 % (35.4-49) L 11/27/19 13:05 MCV 68.5 fl (80-96) L 11/27/19 13:05 MCH 21.6 pg (25.7-33.7) L 11/27/19 13:05 MCHC 31.5 g/dl (32.0-35.9) L 11/27/19 13:05 RDW 18.2 % (11.9-15.9) H 11/27/19 13:05 Plt Count 293 K/MM3 (134-434) D 11/27/19 13:05 MPV 8.6 fl (7.5-11.1) 11/27/19 13:05 Sodium 135 mmol/L (136-145) L 11/27/19 13:05 Potassium 4.1 mmol/L (3.5-5.1) 11/27/19 13:05 Chloride 100 mmol/L (98-107) 11/27/19 13:05 Carbon Dioxide 25 mmol/L (21-32) 11/27/19 13:05 Anion Gap 9 MMOL/L (8-16) 11/27/19 13:05 BUN 9.8 mg/dL (7-18) 11/27/19 13:05 Creatinine 0.8 mg/dL (0.55-1.3) 11/27/19 13:05 Est GFR (CKD-EPI)AfAm 124.16 11/27/19 13:05 Est GFR (CKD-EPI)NonAf 107.13 11/27/19 13:05 Random Glucose 98 mg/dL (74-106) 11/27/19 13:05 Calcium 8.4 mg/dL (8.5-10.1) L 11/27/19 13:05 Total Bilirubin 1.1 mg/dL (0.2-1) H 11/27/19 13:05 AST 118 U/L (15-37) H 11/27/19 13:05 ALT 80 U/L (13-61) H 11/27/19 13:05 Alkaline Phosphatase 108 U/L (45-117) 11/27/19 13:05 Total Protein 7.8 g/dl (6.4-8.2) 11/27/19 13:05 Albumin 3.6 g/dl (3.4-5.0) 11/27/19 13:05 Syphilis Serology Non-reactive (NONREACTIVE) 11/27/19 13:05 COVID-19 (SANJUANITA) Not detected (Not Detected) 11/27/19 14:15 Labs noted. Assessment: 11/30/19 10:57 AOX3, in no acute respiratory distress. Full ROM, ambulating in the unit. Withdrawal symptoms. Plan: continue detox.
[2019-11-30] MEDS: MELATONIN 5 MG TABLETS PO SCH (22:04)
[2019-11-30] MEDS: traZODone HCL 100 MG TABLET (FP) PO SCH (22:04)
[2019-11-30] MEDS: THIAMINE HCL 100 MG TABLET (FP) PO SCH (22:04)
[2019-12-01] MEDS ORDERED: LORazepam 0.5 MG TABLET PO PRN
[2019-12-01] MEDS: BENZOCAINE 20 % GEL TUBE MM PRN ×2 (00:07→16:56)
[2019-12-01] MEDS ORDERED: METHADONE HCL 10 MG TABLET ONE (04:43)
[2019-12-01] MEDS ORDERED: METHADONE HCL 40 MG DISPERSABLE TABLET ONE (04:44)
[2019-12-01] MEDS ORDERED: chlordiazePOXIDE HCL 10 MG CAPSULE PO SCH (05:00)
[2019-12-01] MEDS: METHADONE 160 MG, METHADONE 30 MG PO SCH (05:31)
[2019-12-01] MEDS: LORazepam 0.5 MG TABLET PO SCH ×4 (05:32→22:02)
--- NOTE | 2019-12-01 10:01 | PN ---
S CIWA - CIWA Score Nausea/Vomitin-Mild Nausea/No Vomiting Muscle Tremors: 1-None Visible, but [place] Anxiety: 1-Mildly Anxious Agitation: 0-Normal Activity Paroxysmal Sweats: No Perspiration Orientation: 0-Oriented Tacttile Disturbances: 1-Very Mild Itch/Numbness Auditory Disturbances: 0-None Visual Disturbances: 0-None Headache: 0-None Present CIWA-Ar Total Score: 4 BHS Progress Note (SOAP) Subjective: 44 years old male admitted on 11/27/19 for alcohol withdrawal sx management treating with ativan detox regiment feeling better today less tremor mild anxiety received methadone 190 mg po today Objective: 12/01/19 10:02 Vital Signs - 24 hr 11/30/19 11/30/19 11/30/19 12:46 16:45 20:40 Temperature 97.1 F L 97.8 F Pulse Rate 73 56 L 59 L Respiratory 18 16 16 Rate Blood Pressure 102/64 103/64 117/75 O2 Sat by Pulse 100 99 Oximetry (%) 12/01/19 12/01/19 12/01/19 03:30 06:20 09:20 Temperature 97.1 F L 97.1 F L Pulse Rate 68 81 Respiratory 18 18 18 Rate Blood Pressure 105/63 126/64 O2 Sat by Pulse 100 Oximetry (%) Laboratory Tests 11/27/19 11/27/19 11/27/19 13:05 13:05 13:05 WBC 4.0 RBC 4.51 Hgb 9.7 L Hct 30.9 L MCV 68.5 L MCH 21.6 L MCHC 31.5 L RDW 18.2 H Plt Count 293 D MPV 8.6 Sodium 135 L Potassium 4.1 Chloride 100 Carbon Dioxide 25 Anion Gap 9 BUN 9.8 Creatinine 0.8 Est GFR (CKD-EPI)AfAm 124.16 Est GFR (CKD-EPI)NonAf 107.13 Random Glucose 98 Calcium 8.4 L Total Bilirubin 1.1 H AST 118 H ALT 80 H Alkaline Phosphatase 108 Total Protein 7.8 Albumin 3.6 Syphilis Serology Non-reactive COVID-19 (SANJUANITA) 11/27/19 14:15 WBC RBC Hgb Hct MCV MCH MCHC RDW Plt Count MPV Sodium Potassium Chloride Carbon Dioxide Anion Gap BUN Creatinine Est GFR (CKD-EPI)AfAm Est GFR (CKD-EPI)NonAf Random Glucose Calcium Total Bilirubin AST ALT Alkaline Phosphatase Total Protein Albumin Syphilis Serology COVID-19 (SANJUANITA) Not detected low hgb ferrous sulfate 325 mg po daily reconciled in home medication list ast elevation continue ativan alcohol detox avoid tylenal 12/01/19 10:03 12/01/19 10:06 Assessment: 12/01/19 10:07 alcohol withdrawal Plan: ativan regiment
[2019-12-01] MEDS ORDERED: FERROUS SO4 325 MG TABLET (FP) PO SCH (10:15)
[2019-12-01] MEDS: NICOTINE 7 MG/24 HOURS TOPICAL PATCH TD SCH (10:29)
[2019-12-01] MEDS: hydrOXYzine PAMOATE 25 MG CAPSULE (FP) PO SCH ×4 (10:29→22:01)
[2019-12-01] MEDS: PRENATAL VITAMINS W/ FOLIC ACID TABLET (FP) PO SCH (10:29)
[2019-12-01] MEDS: TOLNAFTATE 1% CREAM 15 GM TUBE TP SCH ×2 (10:30→22:01)
[2019-12-01] MEDS ORDERED: cloNIDine HCL 0.1 MG TABLET PO PRN (11:00)
[2019-12-01 21:31] VITALS: BP 100/63; PULSE 60; TEMP 96.9
[2019-12-01] MEDS: traZODone HCL 100 MG TABLET (FP) PO SCH (22:01)
[2019-12-01] MEDS: MELATONIN 5 MG TABLETS PO SCH (22:01)
[2019-12-01] MEDS: THIAMINE HCL 100 MG TABLET (FP) PO SCH (22:01)
[2019-12-02] MEDS ORDERED: METHADONE HCL 40 MG DISPERSABLE TABLET ONE (04:36)
[2019-12-02] MEDS ORDERED: METHADONE HCL 10 MG TABLET ONE (04:36)
[2019-12-02] MEDS ORDERED: LORazepam 0.5 MG TABLET PO ONE (05:00)
[2019-12-02] MEDS ORDERED: chlordiazePOXIDE HCL 10 MG CAPSULE PO ONE (05:00)
[2019-12-02] MEDS: hydrOXYzine PAMOATE 25 MG CAPSULE (FP) PO SCH (05:49)
[2019-12-02] MEDS: METHADONE 160 MG, METHADONE 30 MG PO SCH (05:49)
--- NOTE | 2019-12-02 09:26 | DS ---
[facility] Detox Discharge Summary Admission Date: 11/27/19 Discharge Date: 12/02/19 - History Present History: Alcohol Dependence Additional Comments: 44 years old male admitted on 11/27/19 for alcohol withdrawal sx management treated with ativan detox regiment seen by psychiatrist kahlil caballero mr beltran has completed the ativan and is tolerated well alert oriented x 3 speech clearly coherently ambulating steady gaits respiratory clear lung sounds bilaterally on auscultation abdomen soft flat none tenderness skin warm and dry Pertinent Past History: time for discharge 35 minutes mr beltran received methadone 190mg po today agreed to continue ferrous sulfate over the counter medication and repeat ast at the methadone program - Physical Exam Results Vital Signs: Vital Signs Temperature 96.9 F L 12/01/19 20:50 Pulse Rate 60 12/01/19 20:50 Respiratory Rate 16 12/02/19 00:26 Blood Pressure 100/63 12/01/19 20:50 O2 Sat by Pulse Oximetry (%) 98 12/01/19 20:50 Pertinent Admission Physical Exam Findings: alcohol withdrawal Laboratory Tests 11/27/19 11/27/19 11/27/19 13:05 13:05 13:05 WBC 4.0 RBC 4.51 Hgb 9.7 L Hct 30.9 L MCV 68.5 L MCH 21.6 L MCHC 31.5 L RDW 18.2 H Plt Count 293 D MPV 8.6 Sodium 135 L Potassium 4.1 Chloride 100 Carbon Dioxide 25 Anion Gap 9 BUN 9.8 Creatinine 0.8 Est GFR (CKD-EPI)AfAm 124.16 Est GFR (CKD-EPI)NonAf 107.13 Random Glucose 98 Calcium 8.4 L Total Bilirubin 1.1 H AST 118 H ALT 80 H Alkaline Phosphatase 108 Total Protein 7.8 Albumin 3.6 Syphilis Serology Non-reactive COVID-19 (SANJUANITA) 11/27/19 14:15 WBC RBC Hgb Hct MCV MCH MCHC RDW Plt Count MPV Sodium Potassium Chloride Carbon Dioxide Anion Gap BUN Creatinine Est GFR (CKD-EPI)AfAm Est GFR (CKD-EPI)NonAf Random Glucose Calcium Total Bilirubin AST ALT Alkaline Phosphatase Total Protein Albumin Syphilis Serology COVID-19 (SANJUANITA) Not detected low hgb ferrous sulfate ast elevation alcohol cessation - Treatment Hospital Course: Detox Protocol Followed, Detoxed Safely, Responded well, Discharged Condition Good, Rehab Referral Accepted Patient has Accepted a Rehab Referral to: [facility] - Medication Discharge Medications: Ambulatory Orders traZODone HCL [Trazodone HCl] 100 mg PO HS 11/27/19 Ferrous Sulfate 325 mg PO DAILY 12/01/19 - Diagnosis (1) Alcohol dependence with uncomplicated withdrawal Status: Acute (2) Substance induced mood disorder Status: Suspected (3) Hepatitis C Status: Chronic Qualifiers: Viral hepatitis chronicity: unspecified Hepatic coma status: without hepatic coma Qualified Code(s): B19.20 - Unspecified viral hepatitis C without hepatic coma (4) Nicotine dependence Status: Acute Qualifiers: Nicotine product type: cigarettes Substance use status: in withdrawal Qualified Code(s): F17.213 - Nicotine dependence, cigarettes, with withdrawal (5) Anemia Status: Chronic Qualifiers: Anemia type: iron deficiency Iron deficiency anemia type: unspecified iron deficiency Qualified Code(s): D50.9 - Iron deficiency anemia, unspecified (6) Elevated serum aspartate aminotransferase level Status: Chronic (7) Methadone maintenance therapy patient Status: Chronic - AMA Did Patient Leave Against Medical Advice: No CIWA Score - CIWA Score Nausea/Vomitin-No Nausea/No Vomiting Muscle Tremors: 1-None Visible, but [place] Anxiety: 1-Mildly Anxious Agitation: 0-Normal Activity Paroxysmal Sweats: No Perspiration Orientation: 0-Oriented Tacttile Disturbances: 0-None Auditory Disturbances: 0-None Visual Disturbances: 0-None Headache: 0-None Present CIWA-Ar Total Score: 2
== END 2019-12-02 08:30 | disposition home or self-care (01) | DRG 773 ==
LOC: YASAS 10:57 → Y3N 13:58
PROVIDERS: ADMIT Allergy & Immunology; ATTEND Allergy & Immunology
PROC: HZ2ZZZZ Detoxification Services for Substance Abuse Treatment (ICD-10-PCS; principal; 2019-11-27)
DX: F10.230 Alcohol dependence with withdrawal, uncomplicated (principal); F10.220 Alcohol dependence with intoxication, uncomplicated; F11.20 Opioid dependence, uncomplicated; F14.20 Cocaine dependence, uncomplicated; F17.213 Nicotine dependence, cigarettes, with withdrawal; F19.24 Other psychoactive substance dependence with psychoactive substance-induced mood disorder; F39 Unspecified mood [affective] disorder; B19.20 Unspecified viral hepatitis C without hepatic coma; D50.9 Iron deficiency anemia, unspecified; R74.0 Nonspecific elevation of levels of transaminase and lactic acid dehydrogenase [LDH]
CPT/HCPCS: 36415; 80053; 85027; 86780; U0003

== ENCOUNTER 2020-02-25 16:57 | Inpatient (IN) | payer OTHER ==
[2020-02-25 18:39] VITALS: BMI 19.0
--- NOTE | 2020-02-25 19:09 | BHS.RME ---
Substance Use & Tx History - Substance Use History Alcohol Substance amount: 4 pints of vodka, 15 x 24oz. beer Frequency of use: Daily Substance route: Oral Date of Last Use: 02/25/20 - Last Treatment Date of last treatment: 11/27/2019-12/02/2019 Where was last treatment: Detox Physical/Psych/Mental Status - Behavior Eye Contact: Normal - Cooperativeness Cooperativeness: Cooperative - Thinking Thought Processes: Logical Thought content: Future oriented - Physical Health Problems Is patient presently having any pain?: No Does patient presently have any injuries (include location): No Does patient currently have a fever: No Is patient : No CIWA Nausea/Vomitin Muscle Tremors: 4-Moderate,w/Arms Extend Anxiety: 3 Agitation: 3 Paroxysmal Sweats: 2 Orientation: 0-Oriented Tacttile Disturbances: 0-None Auditory Disturbances: 0-None Visual Disturbances: 0-None Headache: 0-None Present CIWA-Ar Total Score: 14 Treatment Recommendation - Level of Care Level of Care: Opioid Treatment Program (OTP) (Detoxification)
--- NOTE | 2020-02-25 19:14 | HP ---
CIWA Score Nausea/Vomitin Muscle Tremors: 4-Moderate,w/Arms Extend Anxiety: 3 Agitation: 3 Paroxysmal Sweats: 2 Orientation: 0-Oriented Tacttile Disturbances: 0-None Auditory Disturbances: 0-None Visual Disturbances: 0-None Headache: 0-None Present CIWA-Ar Total Score: 14 - Admission Criteria OASAS Guidelines: Admission for Medically Managed Detox: Requires at least one of the followin. CIWA greater than 12 2. Seizures within the past 24 hours 3. Delirium tremens within the past 24 hours 4. Hallucinations within the past 24 hours 5. Acute intervention needed for co occurring medical disorder 6. Acute intervention needed for co occurring psychiatric disorder 7. Severe withdrawal that cannot be handled at a lower level of care (continued vomiting, continued diarrhea, abnormal vital signs) requiring intravenous medication and/or fluids 8. Admitting History and Physical - Past Medical History Hepatobiliary: Yes: Hepatitis C Heme/Onc: Yes: Anemia - Smoking History Smoking history: Current every day smoker Have you smoked in the past 12 months: Yes Aproximately how many cigarettes per day: 10 - Alcohol/Substance Use Hx Alcohol Use: Yes - Social History ADL: Independent Occupation: unemployed, flyer History of Recent Travel: No Admission ROS S - HPI Chief Complaint: Seeking admission to detox from alcohol, on methadone maintenance therapy Allergies/Adverse Reactions: Allergies Allergy/AdvReac Type Severity Reaction Status Date / Time No Known Allergies Allergy Verified 11/27/19 13:31 History of Present Illness: 44 years old male with a long history of alcohol dependence is seeking admission to detox. His last admission was for the period 11/27/2019 - 12/02/2019 and he relapsed in January 2020. Patient reports that he drinks 4 pints of vodka, 15 x 24oz. beer daily. He has medical history of Hep. C (not treated), anemia, psych. history of bipolar disorder, anxiety, depression and insomnia. He reports suicide attempt in 2006 and denies suicidal ideation at this time. He is unemployed, homeless and denies any pending legal issues. 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 He is on Methadone 190mg tablet oral daily with [place], [place]. Dose is yet to be confirmed by the nurse. Exam Limitations: No Limitations - Ebola screening Have you traveled outside of the country in the last 21 days: No Have you had contact with anyone from an Ebola affected area: No Have you been sick,other than usual withdrawal symptoms: No Do you have a fever: No - Review of Systems Constitutional: Chills, Malaise, Changes in sleep EENT: reports: Nose Congestion Respiratory: reports: No Symptoms reported Cardiac: reports: No Symptoms Reported GI: reports: Diarrhea (x 2), Nausea, Poor Fluid Intake, Abdominal cramping : reports: No Symptoms Reported Musculoskeletal: reports: No Symptoms Reported Integumentary: reports: Dryness, Flushing Neuro: reports: Tremors Endocrine: reports: No Symptoms Reported Hematology: reports: Anemia Psychiatric: reports: Orientated x3, Anxious Other Systems: Reviewed and Negative Patient History - Patient Medical History Hx Anemia: Yes (Not on medication) Hx Asthma: No Hx Chronic Obstructive Pulmonary Disease (COPD): No Hx Cancer: No Hx Cardiac Disorders: No Hx Congestive Heart Failure: No Hx Hypertension: No Hx Hypercholesterolemia: No Hx Pacemaker: No HX Cerebrovascular Accident: No Hx Seizures: No Hx Diabetes: No Hx Gastrointestinal Disorders: No Hx Liver Disease: Yes (Hep. C) Hx Genitourinary Disorders: No Hx Sexually Transmitted Disorders: No Hx Renal Disease (ESRD): No Hx Thyroid Disease: No Hx Human Immunodeficiency Virus (HIV): No (Negative 2019) Hx Hepatitis C: Yes (Not treated) Hx Depression: Yes Hx Suicide Attempt: Yes (Attempt in 2006, denies suicidal ideation at this time) Hx Bipolar Disorder: Yes Hx Schizophrenia: No - Patient Surgical History Past Surgical History: Yes Hx Neurologic Surgery: No Hx Cataract Extraction: No Hx Cardiac Surgery: No Hx Lung Surgery: No Hx Abdominal Surgery: No Hx Appendectomy: No Hx Cholecystectomy: No Hx Genitourinary Surgery: No Hx Orthopedic Surgery: Yes (SURGERY FOR C3-6 FRACTURES ) Other Surgical History: DEVELOPED WEAKNESS IN RUL Anesthesia Reaction: No - PPD History Previous Implant?: Yes Documented Results: Negative w/proof Implanted On Prior R Admission?: Yes Date: 11/29/19 PPD to be Administered?: No - Reproductive History Patient is a Female of Child Bearing Age (11 -55 yrs old): No (male) - Smoking Cessation Smoking history: Current every day smoker Have you smoked in the past 12 months: Yes Aproximately how many cigarettes per day: 10 Hx Chewing Tobacco Use: No Initiated information on smoking cessation: Yes 'Breaking Loose' booklet given: 02/25/20 - Substance & Tx. History Hx Alcohol Use: Yes Hx Substance Use: No Substance Use Type: Alcohol Hx Substance Use Treatment: Yes ([facility]) - Substances abused Alcohol Substance route: Oral Frequency: Daily Amount used: 4 pints of vodka, 15 x 24oz. beer Age of first use: 15 Date of last use: 02/25/[address] [facility] - Vital Signs Vital Signs: Vital Signs - 24 hr 02/25/20 18:37 Temperature 97.3 F L Pulse Rate 70 Respiratory 18 Rate Blood Pressure 117/66 - Physical General Appearance: Yes: Moderate Distress, Tremorous, Anxious HEENTM: Yes: Within Normal Limits Respiratory: Yes: Lungs Clear, Normal Breath Sounds, No Respiratory Distress Neck: Yes: Within Normal Limits Breast: Yes: Breast Exam Deferred Cardiology: Yes: Regular Rhythm, Regular Rate Abdominal: Yes: Normal Bowel Sounds, Soft Genitourinary: Yes: Within Normal Limits Back: Yes: Normal Inspection Musculoskeletal: Yes: Within Normal Limits Extremities: Yes: Tremors Neurological: Yes: Within Normal Limits Integumentary: Yes: Dry, Track Razo (left arm) Lymphatic: Yes: Within Normal Limits Cleared for Admission [facility] - Detox or Rehab [facility] Level of Care: Medically Managed Detox Regimen/Protocol: Ativan Claeared for Rehab Admission: No Breathalyzer - Breathalyzer Breathalyzer: 0.083 Urine Drug Screen - Test Device Lot number: [id number] Expiration date: 09/10/21 - Control Is test valid?: Yes - Results Drug screen NEGATIVE: No Urine drug screen results: MTD-Methadone Inpatient Rehab Admission - Rehab Decision to Admit Inpatient rehab admission?: No
[2020-02-25] MEDS ORDERED: IBUPROFEN 400 MG TABLET (FP) PO PRN (19:35)
[2020-02-25] MEDS ORDERED: MAGNESIUM CITRATE 300 ML BOTTLE PO PRN (19:35)
[2020-02-25] MEDS ORDERED: ACETAMINOPHEN 325 MG TABLET (FP) PO PRN ×2 (19:35)
[2020-02-25] MEDS ORDERED: MAGNESIUM HYDROX 2400MG/30ML ORAL SUSPENSION 30 ML CUP PO PRN (19:35)
[2020-02-25] MEDS ORDERED: MENTHOL/PHENOL 1 EACH UD MM PRN (19:35)
[2020-02-25] MEDS ORDERED: ONDANSETRON *ODT* 4 MG TABLET SL PRN (19:35)
[2020-02-25] MEDS ORDERED: BISMUTH SUBSALICYLATE 524 MG/30 ML UD PO PRN (19:35)
[2020-02-25] MEDS ORDERED: NICOTINE POLACRILEX 2 MG GUM BUC PRN (19:35)
--- OUTSIDE RECORDS SUMMARY | 2020-02-25 20:17 | XMS ---
:1975 Author Organization [facility] Support Name Relationship Address Phone CHERI REYES [address] [place] [address] SOFYA [phone] [place] [address] CHERI JACINTO [address] [facility] [address] [place] [address] UE Unavailable Unavailable Unavailable GLEN PÉREZ OTHER RELATIONSHIP [address] [place] [address] [place] [address] CHERI JACINTO Other [address] [place] [address] [place] [address] Re-disclosure Warning The records that you are about to access may contain information from federally- assisted alcohol or drug abuse programs. If such information is present, then the following federally mandated warning applies: This information has been disclosed to you from records protected by federal confidentiality rules (42 CFR part 2). The federal rules prohibit you from making any further disclosure of this information unless further disclosure is expressly permitted by the written consent of the person to whom it pertains or as otherwise permitted by 42 CFR part 2. A general authorization for the release of medical or other information is NOT sufficient for this purpose. The Federal rules restrict any use of the information to criminally investigate or prosecute any alcohol or drug abuse patient.The records that you are about to access may contain highly sensitive health information, the redisclosure of which is protected by Article 27-F of the [facility] Public Health law. If you continue you may haveaccess to information: Regarding HIV / AIDS; Provided by facilities licensed or operated by the [facility] Office of Mental Health; or Provided by the [facility] Office for People With Developmental Disabilities. If such information is present, then the following [facility] mandated warning applies: This information has been disclosed to you from confidential records which are protected by state law. State law prohibits you from making any further disclosure of this information without the specific written consent of the person to whom it pertains, or as otherwise permitted by law. Any unauthorized further disclosure in violation of state law may result in a fine or correction sentence or both. A general authorization for the release of medical or other information is NOT sufficient authorization for further disclosure. Insurance Providers Payer name Policy type Policy ID Covered Covered constitution party's Policy P cyndy / Coverage constitution party ID relationship to Alvarez Inf ormation type alvarez SELF PAY SP INSURANCE BEACON [id number] SP [id number] [facility] BEACON [id number] SP [id number] [facility]LUS Results ID Date Data Source [id number] 11/27/2019 02:15:00 PM EDT [facility] Name Value Range Interpretation Description Data Sup porting Code Source(s) Document(s ) SARS [facility] CORONAVIRUS 2 RNA This lab was ordered by [place] [facility] Mcrae and reported by [facility]. Procedure
[2020-02-25] MEDS: MELATONIN 5 MG TABLETS PO SCH (22:14)
[2020-02-25] MEDS: THIAMINE HCL 100 MG TABLET (FP) PO SCH (22:14)
[2020-02-25] MEDS: LORazepam 2 MG TABLET PO SCH (22:14)
[2020-02-25] MEDS: MAG HYDROX/AL HYDROX/SIMETH 30 ML UNIT-DOSE CUP PO PRN (22:15)
[2020-02-26] MEDS: LORazepam 2 MG TABLET PO SCH ×4 (05:36→22:29)
[2020-02-26] MEDS ORDERED: METHADONE HCL 10 MG TABLET PO ONE (09:11)
--- NOTE | 2020-02-26 09:15 | PN ---
S CIWA - CIWA Score Nausea/Vomitin-Mild Nausea/No Vomiting Muscle Tremors: 3 Anxiety: 4-Mod. Anxious/Guarded Agitation: 1-Slight > Activity Paroxysmal Sweats: No Perspiration Orientation: 0-Oriented Tacttile Disturbances: 0-None Auditory Disturbances: 0-None Visual Disturbances: 1-Very Mild Sensitivity Headache: 2-Mild CIWA-Ar Total Score: 12 BHS Progress Note (SOAP) Subjective: 44 years old male was admitted on 02/25/20 for alcohol withdrawal sx management treating with ativan detox regiment feels tired bmi 19 continue ensure supplement limited conversation with staff informed methadone 190mg po daily as per verification Objective: 02/26/20 09:17 Vital Signs - 24 hr 02/25/20 02/25/20 02/26/20 18:37 20:50 06:33 Temperature 97.3 F L 98.0 F 98.2 F Pulse Rate 70 85 76 Respiratory 18 18 18 Rate Blood Pressure 117/66 127/74 127/76 O2 Sat by Pulse 96 97 Oximetry (%) 02/26/20 08:45 Temperature 96.9 F L Pulse Rate 78 Respiratory 18 Rate Blood Pressure 111/75 O2 Sat by Pulse 97 Oximetry (%) 02/26/20 09:17 lab pending Assessment: 02/26/20 09:17 alcohol withdrawal Plan: ativan regiment
[2020-02-26] MEDS ORDERED: METHADONE 160 MG, METHADONE 30 MG PO ONE (09:40)
[2020-02-26] MEDS ORDERED: METHADONE HCL 10 MG TABLET ONE (09:47)
[2020-02-26] MEDS ORDERED: METHADONE HCL 40 MG DISPERSABLE TABLET ONE (09:48)
--- NOTE | 2020-02-26 10:06 | EKG ---
Test Reason : Blood Pressure : / mmHG Vent. Rate : 058 BPM Atrial Rate : 441 BPM P-R Int : 000 ms QRS Dur : 104 ms QT Int : 456 ms P-R-T Axes : 000 081 077 degrees QTc Int : 447 ms JUNCTIONAL RHYTHM ABNORMAL ECG NO PREVIOUS ECGS AVAILABLE Confirmed by Demetrius Brasher ([id number]) on 02/26/2020 10:06:31 AM Referred By: Confirmed By:Demetrius Brasher
[2020-02-26 10:48] LABS: HEMATOCRIT 34.2 % (35.4-49); HEMOGLOBIN 11.1 GM/dL (11.7-16.9); MCH 22.7 pg (25.7-33.7); MCHC 32.5 g/dl (32.0-35.9); MEAN CELL VOLUME 69.8 fl (80-96); MEAN PLT VOLUME 8.6 fl (7.5-11.1); PLATELET COUNT 147 K/MM3 (134-434); WHITE BLOOD COUNT 2.8 K/mm3 (4.0-10.0)
[2020-02-26] MEDS: NICOTINE 14 MG/24 HOURS TOPICAL PATCH TD SCH (10:55)
[2020-02-26] MEDS: PRENATAL VITAMINS W/ FOLIC ACID TABLET (FP) PO SCH (10:56)
[2020-02-26 11:05] LABS: ALBUMIN 3.6 g/dl (3.4-5.0); BLOOD UREA NITROGEN 8.2 mg/dL (7-18); CALCIUM 8.4 mg/dL (8.5-10.1); POTASSIUM 4.1 mmol/L (3.5-5.1)
[2020-02-26 11:10] LABS: BILIRUBIN,TOTAL 1.5 mg/dL (0.2-1); CREATININE 0.9 mg/dL (0.55-1.3); TOT PROT 7.8 g/dl (6.4-8.2)
--- NOTE | 2020-02-26 12:37 | CONSULT ---
[facility] Consult - Data Date of interview: 02/26/20 [facility] Identifying data: Patient is a 45 year old male, father of three, unemployed, homeless, and is not currently receiving financial assistance. This is one of multiple admissions for patient. Patient admitted to for detox for alcohol, cocaine, and opiate dependence. Substance Abuse History: Smoking Cessation. Smoking history: Current every day smoker. Have you smoked in the past 12 months: Yes. Aproximately how many cigarettes per day: 10. Hx Chewing Tobacco Use: No. Initiated information on smoking cessation: Yes. 'Breaking Loose' booklet given: 02/25/20. - Substance & Tx. History. Hx Alcohol Use: Yes. Hx Substance Use: No. Substance Use Type: Alcohol. Hx Substance Use Treatment: Yes ([facility]). - Substances abused. Alcohol. Substance route: Oral. Frequency: Daily. Amount used: 4 pints of vodka, 15 x 24oz. beer. Age of first use: 15. Date of last use: 02/25/20 Medical History: HCV positive untreated, anemia, C3-C4 fractures in 2019 and surgeries Psychiatric History: Patient seen by automobile and property underwriter in November of 2019. Patient reports history of two psychiatric hospitalizations ([facility] + [facility]). History of multiple suicide attempts by overdose and self mutilation (cutting on forearm). Reports past trials of Celexa, vistaril and klonopin. Patient states that he has been diagnosed with depression and bipolar disorder. Patient is totally lost with follow up care but is requesting to take trazodone for insomnia. At present, patient report difficulty sleeping. Physical/Sexual Abuse/Trauma History: denies. Mental Status Exam - Mental Status Exam Alert and Oriented to: Time, Place, Person Cognitive Function: Good Patient Appearance: Well Groomed Mood: Withdrawn Affect: Mood Congruent Patient Behavior: Fatigued, Cooperative Speech Pattern: Delayed (Patient bed, presents as fatigue.) Voice Loudness: Mildly Soft/Quiet Thought Process: Goal Oriented Thought Disorder: Not Present Hallucinations: Denies Suicidal Ideation: Denies Homicidal Ideation: Denies Insight/Judgement: Poor Sleep: Poorly Appetite: Fair Muscle strength/Tone: Normal Gait/Station: Other (Gait not observed.) Psychiatric Findings - Problem List ([place] 1, 2,3) (1) Alcohol dependence with uncomplicated withdrawal Current Visit: Yes Status: Acute (2) Substance-induced sleep disorder Current Visit: Yes Status: Acute (3) Nicotine dependence Current Visit: Yes Status: Acute Qualifiers: Nicotine product type: cigarettes Substance use status: in withdrawal Qualified Code(s): F17.213 - Nicotine dependence, cigarettes, with withdrawal (4) Methadone maintenance therapy patient Current Visit: Yes Status: Chronic (5) Substance induced mood disorder Current Visit: Yes Status: Acute (6) Mood disorder Current Visit: Yes Status: Suspected - Initial Treatment Plan Initial Treatment Plan: Psychoeducation provided. Detoxification in progress. Will order Trazodone 100mg HS. Benefits and side effects discussed. Verbal consent given.
[2020-02-26] MEDS: LORazepam 1 MG TABLET PO PRN ×2 (13:56→18:48)
[2020-02-26] MEDS: CLOTRIMAZOLE 1% CREAM 15 GM TUBE TP SCH ×2 (14:17→22:31)
[2020-02-26] MEDS: MAG HYDROX/AL HYDROX/SIMETH 30 ML UNIT-DOSE CUP PO PRN (17:54)
[2020-02-26] MEDS: METHOCARBAMOL 500 MG TABLET PO PRN (18:48)
[2020-02-26] MEDS: THIAMINE HCL 100 MG TABLET (FP) PO SCH (22:31)
[2020-02-26] MEDS: traZODone HCL 100 MG TABLET (FP) PO SCH (22:31)
[2020-02-26] MEDS: MELATONIN 5 MG TABLETS PO SCH (22:31)
[2020-02-27] MEDS ORDERED: METHADONE HCL 40 MG DISPERSABLE TABLET ONE (04:25)
[2020-02-27] MEDS ORDERED: METHADONE HCL 10 MG TABLET ONE (04:25)
[2020-02-27] MEDS: LORazepam 1 MG TABLET PO SCH ×4 (05:51→22:25)
[2020-02-27] MEDS: METHADONE 160 MG, METHADONE 30 MG PO SCH (05:51)
[2020-02-27] MEDS ORDERED: METHADONE HCL 10 MG TABLET PO SCH (06:00)
[2020-02-27] MEDS: NICOTINE 14 MG/24 HOURS TOPICAL PATCH TD SCH (10:32)
[2020-02-27] MEDS: PRENATAL VITAMINS W/ FOLIC ACID TABLET (FP) PO SCH (10:32)
[2020-02-27] MEDS: CLOTRIMAZOLE 1% CREAM 15 GM TUBE TP SCH ×2 (10:33→22:25)
[2020-02-27] MEDS: MAG HYDROX/AL HYDROX/SIMETH 30 ML UNIT-DOSE CUP PO PRN (10:35)
--- NOTE | 2020-02-27 11:19 | PN ---
[facility] CIWA - CIWA Score Nausea/Vomitin-No Nausea/No Vomiting Muscle Tremors: 2 Anxiety: 2 Agitation: 2 Paroxysmal Sweats: No Perspiration Orientation: 0-Oriented Tacttile Disturbances: 1-Very Mild Itch/Numbness Auditory Disturbances: 0-None Visual Disturbances: 0-None Headache: 1-Very Mild CIWA-Ar Total Score: 8 S Progress Note (SOAP) Subjective: alert,irritable,anxious,interrupted sleep,aching pain Objective: 02/27/20 17:35 Vital Signs Temperature 97.3 F L 02/27/20 13:23 Pulse Rate 68 02/27/20 13:23 Respiratory Rate 18 02/27/20 13:23 Blood Pressure 111/73 02/27/20 13:23 O2 Sat by Pulse Oximetry (%) 100 02/27/20 13:23 Laboratory Last Values WBC 2.8 K/mm3 (4.0-10.0) L 02/26/20 08:00 RBC 4.90 M/mm3 (4.00-5.60) 02/26/20 08:00 Hgb 11.1 GM/dL (11.7-16.9) L 02/26/20 08:00 Hct 34.2 % (35.4-49) L 02/26/20 08:00 MCV 69.8 fl (80-96) L 02/26/20 08:00 MCH 22.7 pg (25.7-33.7) L 02/26/20 08:00 MCHC 32.5 g/dl (32.0-35.9) 02/26/20 08:00 RDW 17.0 % (11.9-15.9) H 02/26/20 08:00 Plt Count 147 K/MM3 (134-434) D 02/26/20 08:00 MPV 8.6 fl (7.5-11.1) 02/26/20 08:00 Sodium 136 mmol/L (136-145) 02/26/20 08:00 Potassium 4.1 mmol/L (3.5-5.1) 02/26/20 08:00 Chloride 99 mmol/L (98-107) 02/26/20 08:00 Carbon Dioxide 32 mmol/L (21-32) 02/26/20 08:00 Anion Gap 5 MMOL/L (8-16) L 02/26/20 08:00 BUN 8.2 mg/dL (7-18) 02/26/20 08:00 Creatinine 0.9 mg/dL (0.55-1.3) 02/26/20 08:00 Est GFR (CKD-EPI)AfAm 118.30 02/26/20 08:00 Est GFR (CKD-EPI)NonAf 102.07 02/26/20 08:00 Random Glucose 76 mg/dL (74-106) 02/26/20 08:00 Calcium 8.4 mg/dL (8.5-10.1) L 02/26/20 08:00 Total Bilirubin 1.5 mg/dL (0.2-1) H 02/26/20 08:00 AST 115 U/L (15-37) H 02/26/20 08:00 ALT 79 U/L (13-61) H 02/26/20 08:00 Alkaline Phosphatase 108 U/L (45-117) 02/26/20 08:00 Total Protein 7.8 g/dl (6.4-8.2) 02/26/20 08:00 Albumin 3.6 g/dl (3.4-5.0) 02/26/20 08:00 Syphilis Serology Non-reactive (NONREACTIVE) 02/26/20 08:00 Assessment: 02/27/20 17:35 withdrawal symptom Plan: continue detox ativan regimen,methadone maintenance 190 mgs po daily,close monitoring
[2020-02-27] MEDS: METHOCARBAMOL 500 MG TABLET PO PRN (17:12)
[2020-02-27] MEDS: traZODone HCL 100 MG TABLET (FP) PO SCH (22:25)
[2020-02-27] MEDS: THIAMINE HCL 100 MG TABLET (FP) PO SCH (22:26)
[2020-02-27] MEDS: MELATONIN 5 MG TABLETS PO SCH (22:26)
[2020-02-28] MEDS ORDERED: LORazepam 0.5 MG TABLET PO PRN
[2020-02-28] MEDS ORDERED: METHADONE HCL 10 MG TABLET ONE (04:44)
[2020-02-28] MEDS ORDERED: METHADONE HCL 40 MG DISPERSABLE TABLET ONE (04:45)
[2020-02-28] MEDS: METHADONE 160 MG, METHADONE 30 MG PO SCH (05:31)
[2020-02-28] MEDS: LORazepam 0.5 MG TABLET PO SCH ×4 (05:33→22:03)
--- NOTE | 2020-02-28 09:08 | PN ---
[facility] CIWA - CIWA Score Nausea/Vomitin-Mild Nausea/No Vomiting Muscle Tremors: 2 Anxiety: 2 Agitation: 2 Paroxysmal Sweats: No Perspiration Orientation: 0-Oriented Tacttile Disturbances: 1-Very Mild Itch/Numbness Auditory Disturbances: 0-None Visual Disturbances: 0-None Headache: 1-Very Mild CIWA-Ar Total Score: 9 S Progress Note (SOAP) Subjective: alert,feel weak,irritable,anxious,interrupted sleep Objective: 02/28/20 17:18 Vital Signs Temperature 97.1 F L 02/28/20 13:16 Pulse Rate 67 02/28/20 13:16 Respiratory Rate 16 02/28/20 13:16 Blood Pressure 106/65 02/28/20 13:16 O2 Sat by Pulse Oximetry (%) 98 02/28/20 13:16 Assessment: 02/28/20 17:18 withdrawal symptom Plan: continue detox methadone regimen,continue methadone 190 mgs po daily maintenance
[2020-02-28] MEDS: CLOTRIMAZOLE 1% CREAM 15 GM TUBE TP SCH ×2 (10:08→22:47)
[2020-02-28] MEDS: PRENATAL VITAMINS W/ FOLIC ACID TABLET (FP) PO SCH (10:10)
[2020-02-28] MEDS: NICOTINE 14 MG/24 HOURS TOPICAL PATCH TD SCH (10:10)
[2020-02-28] MEDS: MAG HYDROX/AL HYDROX/SIMETH 30 ML UNIT-DOSE CUP PO PRN (17:36)
[2020-02-28] MEDS: traZODone HCL 100 MG TABLET (FP) PO SCH (22:03)
[2020-02-28] MEDS: THIAMINE HCL 100 MG TABLET (FP) PO SCH (22:03)
[2020-02-28] MEDS: MELATONIN 5 MG TABLETS PO SCH (22:03)
[2020-02-29] MEDS ORDERED: LORazepam 0.5 MG TABLET PO ONE (05:00)
[2020-02-29] MEDS ORDERED: METHADONE HCL 10 MG TABLET ONE (05:04)
[2020-02-29] MEDS ORDERED: METHADONE HCL 40 MG DISPERSABLE TABLET ONE (05:05)
[2020-02-29] MEDS: METHADONE 160 MG, METHADONE 30 MG PO SCH (06:25)
[2020-02-29 09:51] VITALS: BP 97/60; PULSE 65; TEMP 96.9
[2020-02-29] MEDS: NICOTINE 14 MG/24 HOURS TOPICAL PATCH TD SCH (10:35)
[2020-02-29] MEDS: CLOTRIMAZOLE 1% CREAM 15 GM TUBE TP SCH (10:35)
[2020-02-29] MEDS: PRENATAL VITAMINS W/ FOLIC ACID TABLET (FP) PO SCH (10:35)
[2020-02-29 11:50] LABS: HEMATOCRIT 33.6 % (35.4-49); HEMOGLOBIN 10.3 GM/dL (11.7-16.9); MCH 21.8 pg (25.7-33.7); MCHC 30.8 g/dl (32.0-35.9); MEAN CELL VOLUME 70.9 fl (80-96); MEAN PLT VOLUME 8.8 fl (7.5-11.1); PLATELET COUNT 186 K/MM3 (134-434); RBC 4.73 M/mm3 (4.00-5.60); RDW 17.5 % (11.9-15.9); WHITE BLOOD COUNT 3.4 K/mm3 (4.0-10.0)
[2020-02-29 12:03] LABS: ALBUMIN 3.4 g/dl (3.4-5.0); BILIRUBIN,TOTAL 0.6 mg/dL (0.2-1); BLOOD UREA NITROGEN 10.2 mg/dL (7-18); CALCIUM 8.8 mg/dL (8.5-10.1); CREATININE 0.9 mg/dL (0.55-1.3); POTASSIUM 4.6 mmol/L (3.5-5.1); TOT PROT 7.6 g/dl (6.4-8.2)
--- NOTE | 2020-02-29 12:58 | DS ---
[facility] Detox Discharge Summary Admission Date: 02/25/20 Discharge Date: 02/29/20 - History Present History: Alcohol Dependence Additional Comments: Pt is medically cleared and discharged to [facility] for continued management. Pt completed the detox protocol. Pt is encouraged to follow with the rehab protocol which he verbalized understanding. Pt is AOX3, in no acute respiratory distress, Full ROM, and ambulatory. Pertinent Past History: h/o alcohol use disorder. - Physical Exam Results Vital Signs: Vital Signs Temperature 96.9 F L 02/29/20 08:48 Pulse Rate 65 02/29/20 08:48 Respiratory Rate 16 02/29/20 08:48 Blood Pressure 97/60 02/29/20 08:48 O2 Sat by Pulse Oximetry (%) 97 02/29/20 06:41 Vital Signs 02/29/20 02/29/20 06:41 08:48 Temperature 96.8 F L 96.9 F L Pulse Rate 58 L 65 Respiratory 18 16 Rate Blood Pressure 136/81 97/60 O2 Sat by Pulse 97 Oximetry (%) Laboratory Last Values WBC 3.4 K/mm3 (4.0-10.0) L 02/29/20 07:50 RBC 4.73 M/mm3 (4.00-5.60) 02/29/20 07:50 Hgb 10.3 GM/dL (11.7-16.9) L 02/29/20 07:50 Hct 33.6 % (35.4-49) L 02/29/20 07:50 MCV 70.9 fl (80-96) L 02/29/20 07:50 MCH 21.8 pg (25.7-33.7) L 02/29/20 07:50 MCHC 30.8 g/dl (32.0-35.9) L 02/29/20 07:50 RDW 17.5 % (11.9-15.9) H 02/29/20 07:50 Plt Count 186 K/MM3 (134-434) D 02/29/20 07:50 MPV 8.8 fl (7.5-11.1) 02/29/20 07:50 Sodium 138 mmol/L (136-145) 02/29/20 07:50 Potassium 4.6 mmol/L (3.5-5.1) 02/29/20 07:50 Chloride 102 mmol/L (98-107) 02/29/20 07:50 Carbon Dioxide 35 mmol/L (21-32) H 02/29/20 07:50 Anion Gap 2 MMOL/L (8-16) L 02/29/20 07:50 BUN 10.2 mg/dL (7-18) 02/29/20 07:50 Creatinine 0.9 mg/dL (0.55-1.3) 02/29/20 07:50 Est GFR (CKD-EPI)AfAm 118.30 02/29/20 07:50 Est GFR (CKD-EPI)NonAf 102.07 02/29/20 07:50 Random Glucose 88 mg/dL (74-106) 02/29/20 07:50 Calcium 8.8 mg/dL (8.5-10.1) 02/29/20 07:50 Total Bilirubin 0.6 mg/dL (0.2-1) 02/29/20 07:50 AST 81 U/L (15-37) H 02/29/20 07:50 ALT 77 U/L (13-61) H 02/29/20 07:50 Alkaline Phosphatase 136 U/L (45-117) H 02/29/20 07:50 Total Protein 7.6 g/dl (6.4-8.2) 02/29/20 07:50 Albumin 3.4 g/dl (3.4-5.0) 02/29/20 07:50 Syphilis Serology Non-reactive (NONREACTIVE) 02/26/20 08:00 COVID-19 (SANJUANITA) Not detected (Not Detected) 02/25/20 20:25 Labs noted. Pertinent Admission Physical Exam Findings: withdrawal symptoms. - Treatment Hospital Course: Detox Protocol Followed, Detoxed Safely, Responded well, Discharged Condition Good, Rehab Referral Accepted Patient has Accepted a Rehab Referral to: [facility] - Medication Discharge Medications: Ambulatory Orders traZODone HCL [Trazodone HCl] 100 mg PO HS 11/27/19 Ferrous Sulfate 325 mg PO DAILY 12/01/19 Methadone [Dolophine -] 190 mg PO DAILY@0600 02/26/20 - Diagnosis (1) Alcohol dependence with uncomplicated withdrawal Status: Acute (2) Nicotine dependence Status: Chronic Qualifiers: Nicotine product type: cigarettes Substance use status: in withdrawal Qu alified Code(s): F17.213 - Nicotine dependence, cigarettes, with withdrawal (3) Methadone maintenance therapy patient Status: Chronic (4) EtOH dependence Status: Chronic Qualifiers: Substance use status: uncomplicated Qualified Code(s): F10.20 - Alcohol dependence, uncomplicated - AMA Did Patient Leave Against Medical Advice: No
== END 2020-02-29 13:08 | disposition other institution (70) | DRG 773 ==
LOC: YASAS 16:57 → Y3N 20:13
PROVIDERS: ADMIT Allergy & Immunology; ATTEND Allergy & Immunology
PROC: HZ2ZZZZ Detoxification Services for Substance Abuse Treatment (ICD-10-PCS; principal; 2020-02-25)
DX: F10.230 Alcohol dependence with withdrawal, uncomplicated (principal); F11.20 Opioid dependence, uncomplicated; F17.213 Nicotine dependence, cigarettes, with withdrawal; F19.282 Other psychoactive substance dependence with psychoactive substance-induced sleep disorder; F19.24 Other psychoactive substance dependence with psychoactive substance-induced mood disorder; F39 Unspecified mood [affective] disorder; F31.9 Bipolar disorder, unspecified; F41.9 Anxiety disorder, unspecified; G47.00 Insomnia, unspecified; B18.2 Chronic viral hepatitis C; D64.9 Anemia, unspecified; Z91.5 Personal history of self-harm
CPT/HCPCS: 36415; 80053; 85027; 86780; 93005; 93010; Q0162; U0003

== ENCOUNTER 2020-02-29 13:23 | Inpatient (IN) | payer OTHER ==
--- OUTSIDE RECORDS SUMMARY | 2020-02-29 13:27 | XMS ---
:1975 Author Organization [facility] Support Name Relationship Address Phone UE, UNEMPLOYED Unavailable Unavailable Unavailable CHERI REYES FRIEND [address] [place] [address] AVE [phone] [place] [address] CHERI JACINTO FRIEND [address] [place] [address] [place] [address] UE Unavailable Unavailable Unavailable GLEN PÉREZ OTHER RELATIONSHIP [address] [place] [address] [place] [address] CHERI JACINTO Other [address] [place] [address] [place] [address] Re-disclosure Warning The records that you are [...] is protected by Article 27-F of the [facility] Public Health law. If you continue you may haveaccess to information: Regarding HIV / AIDS; Provided by facilities licensed or operated by the [facility] Office of Mental Health; or Provided by the [facility] Office for People With Developmental Disabilities. If such information is present, then the following [facility] mandated warning applies: This information has been [...] law may result in a fine or mcc sentence or both. A general authorization for the release of medical or other information is NOT sufficient authorization for further disclosure. Insurance Providers Payer name Policy type Policy ID Covered Covered alliance party's Policy P cyndy / Coverage alliance party ID relationship to Alvarez Inf ormation type alvarez MEDICAID [id number] SP [id number] BEACON [id number] SP [id number] [employer]US SELF PAY SP INSURANCE BEACON [id number] SP [id number] [facility] Results ID Date Data Source [id number] 02/25/2020 08:25:00 PM EDT [facility] Name Value Range Interpretation Description Data Sup porting Code Source(s) Document(s ) SARS [facility] coronavirus 2 RNA This lab was ordered by [facility] Bill Inter and reported by [facility]. ID Date Data Source [id number] 11/27/2019 02:15:00 PM EDT [facility] Name Value Range Interpretation Description Data Sup porting Code Source(s) Document(s ) SARS [facility] CORONAVIRUS 2 RNA This lab was ordered by [facility] Bill [facility] and reported by [facility]. Procedure
--- OUTSIDE RECORDS SUMMARY | 2020-02-29 13:28 | XMS ---
:1975 Author Organization [facility] Support Name Relationship Address Phone UE, UNEMPLOYED Unavailable Unavailable Unavailable CHERI REYES FRIEND [address] [place] [address] AVE [phone] [place] [address] CHERI JACINTO FRIEND [address] [place] [address] [place] [address] UE Unavailable Unavailable Unavailable GLEN PÉREZ OTHER RELATIONSHIP [address] [place] [address] [place] [address] CHERI JACINTO Other [address] [place] [address] [place] [address] Re-disclosure Warning The records that you are [...] is protected by Article 27-F of the [facility] Public Health law. If you continue you may haveaccess to information: Regarding HIV / AIDS; Provided by facilities licensed or operated by the [facility] Office of Mental Health; or Provided by the [facility] Office for People With Developmental Disabilities. If such information is present, then the following [facility] mandated warning applies: This information has [...] law may result in a fine or assisted sentence or both. A general authorization for the release of medical or other information is NOT sufficient authorization for further disclosure. Insurance Providers Payer name Policy type Policy ID Covered Covered republican's Policy P cyndy / Coverage republican ID relationship to Alvarez Inf ormation type alvarez MEDICAID [id number] SP [id number] BEACON [id number] SP [id number] METROP[employer]US SELF PAY SP INSURANCE BEACON [id number] SP [id number] [facility] Results ID Date Data Source [id number] 02/25/2020 08:25:00 PM EDT [facility] Name Value Range Interpretation Description Data Sup porting Code Source(s) Document(s ) SARS [facility] coronavirus 2 RNA This lab was ordered by [facility] Bill Inter and reported by [facility]. ID Date Data Source [id number] 11/27/2019 02:15:00 PM EDT [facility] Name Value Range Interpretation Description Data Sup porting Code Source(s) Document(s ) SARS [facility] CORONAVIRUS 2 RNA This lab was ordered by [facility] Bill Inter and reported by [facility]. Procedure
[2020-02-29] MEDS ORDERED: guaiFENesin 200 MG/10 ML 10 ML UNIT-DOSE CUPS PO PRN (14:03)
[2020-02-29] MEDS ORDERED: MENTHOL/PHENOL 1 EACH UD MM PRN (14:03)
[2020-02-29] MEDS ORDERED: P-EPHED 60MG/TRIPROLIDI 2.5MG TABLET PO PRN (14:03)
[2020-02-29] MEDS ORDERED: ACETAMINOPHEN 325 MG TABLET (FP) PO PRN (14:03)
[2020-02-29] MEDS ORDERED: NICOTINE POLACRILEX 2 MG GUM BUC PRN (14:03)
[2020-02-29] MEDS ORDERED: MAGNESIUM CITRATE 300 ML BOTTLE PO PRN (14:03)
[2020-02-29] MEDS ORDERED: LOPERAMIDE HCL 2 MG CAPSULE PO PRN (14:03)
--- NOTE | 2020-02-29 14:03 | HP ---
[facility] Rehab Assess/Revision - Admission History Admitted to Rehab from: [facility] Date of Admission to Rehab: 02/29/20 - Vital signs Vital Signs: stable. - Findings Detox History & Physical reviewed: Yes Concur with findings: Yes Inpatient Rehab Admission - Rehab Decision to Admit Inpatient rehab admission?: Yes - Initial Determination Are CD services needed?: Yes Free of communicable disease: Yes Not in need of hospitalization: Yes - Rehab Admission Criteria Previous failed treatment: Yes Poor recovery environment: Yes Comorbidities: Yes Lacks judgement: Yes Patient is meeting Inpatient Rehab admission criteria:: Yes
[2020-02-29] MEDS ORDERED: METHADONE 160 MG, METHADONE 30 MG PO SCH (15:00)
[2020-02-29] MEDS: MAG HYDROX/AL HYDROX/SIMETH 30 ML UNIT-DOSE CUP PO PRN (19:37)
[2020-02-29] MEDS: hydrOXYzine PAMOATE 25 MG CAPSULE (FP) PO PRN (19:37)
[2020-02-29] MEDS: CLOTRIMAZOLE 1% CREAM 15 GM TUBE TP SCH (21:01)
[2020-02-29] MEDS: THIAMINE HCL 100 MG TABLET (FP) PO SCH (21:02)
[2020-02-29] MEDS: MELATONIN 5 MG TABLETS PO SCH (21:02)
[2020-03-01] MEDS ORDERED: METHADONE HCL 10 MG TABLET ONE (05:57)
[2020-03-01] MEDS ORDERED: METHADONE HCL 40 MG DISPERSABLE TABLET ONE (05:58)
[2020-03-01] MEDS ORDERED: METHADONE HCL 40 MG DISPERSABLE TABLET PO SCH (06:00)
[2020-03-01] MEDS: METHADONE 160 MG, METHADONE 30 MG PO SCH (06:20)
[2020-03-01] MEDS: hydrOXYzine PAMOATE 25 MG CAPSULE (FP) PO PRN ×3 (06:21→21:10)
[2020-03-01] MEDS ORDERED: MASKS NR ONE (09:20)
[2020-03-01] MEDS: NICOTINE 14 MG/24 HOURS TOPICAL PATCH TD SCH (09:55)
[2020-03-01] MEDS: PRENATAL VITAMINS W/ FOLIC ACID TABLET (FP) PO SCH (09:55)
[2020-03-01] MEDS: CLOTRIMAZOLE 1% CREAM 15 GM TUBE TP SCH ×2 (09:56→21:11)
[2020-03-01] MEDS: IBUPROFEN 400 MG TABLET (FP) PO PRN (09:56)
[2020-03-01] MEDS ORDERED: PNEUMOC 13-VAL CONJ-DIP CRM/PF 0.5 ML DISP.SYRIN IM ONE (13:57)
[2020-03-01] MEDS: MAG HYDROX/AL HYDROX/SIMETH 30 ML UNIT-DOSE CUP PO PRN (16:46)
[2020-03-01] MEDS: MELATONIN 5 MG TABLETS PO SCH (21:10)
[2020-03-01] MEDS: THIAMINE HCL 100 MG TABLET (FP) PO SCH (21:10)
[2020-03-02] MEDS ORDERED: METHADONE HCL 10 MG TABLET ONE (03:55)
[2020-03-02] MEDS ORDERED: METHADONE HCL 40 MG DISPERSABLE TABLET ONE (03:55)
[2020-03-02] MEDS: METHADONE 160 MG, METHADONE 30 MG PO SCH (06:06)
[2020-03-02] MEDS: PRENATAL VITAMINS W/ FOLIC ACID TABLET (FP) PO SCH (10:15)
[2020-03-02] MEDS: CLOTRIMAZOLE 1% CREAM 15 GM TUBE TP SCH ×2 (10:16→21:10)
[2020-03-02] MEDS: NICOTINE 14 MG/24 HOURS TOPICAL PATCH TD SCH (10:16)
[2020-03-02] MEDS: MAG HYDROX/AL HYDROX/SIMETH 30 ML UNIT-DOSE CUP PO PRN (10:16)
[2020-03-02] MEDS: hydrOXYzine PAMOATE 25 MG CAPSULE (FP) PO PRN ×2 (10:16→21:10)
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
[2020-03-02] MEDS: CITALOPRAM HYDROBROMIDE 20 MG TABLET PO SCH (12:09)
[2020-03-02] MEDS: risperiDONE 1 MG TABLET PO SCH ×2 (12:09→21:09)
[2020-03-02] MEDS: THIAMINE HCL 100 MG TABLET (FP) PO SCH (21:10)
[2020-03-02] MEDS: MELATONIN 5 MG TABLETS PO SCH (21:11)
[2020-03-02] MEDS: traZODone HCL 100 MG TABLET (FP) PO SCH (21:11)
[2020-03-03] MEDS ORDERED: METHADONE HCL 10 MG TABLET ONE (03:19)
[2020-03-03] MEDS ORDERED: METHADONE HCL 40 MG DISPERSABLE TABLET ONE (03:20)
[2020-03-03] MEDS: METHADONE 160 MG, METHADONE 30 MG PO SCH (06:12)
[2020-03-03] MEDS: CLOTRIMAZOLE 1% CREAM 15 GM TUBE TP SCH ×2 (10:04→21:01)
[2020-03-03] MEDS: NICOTINE 14 MG/24 HOURS TOPICAL PATCH TD SCH (10:04)
[2020-03-03] MEDS: PRENATAL VITAMINS W/ FOLIC ACID TABLET (FP) PO SCH (10:05)
[2020-03-03] MEDS: risperiDONE 1 MG TABLET PO SCH ×2 (12:09→21:00)
[2020-03-03] MEDS: CITALOPRAM HYDROBROMIDE 20 MG TABLET PO SCH (12:09)
--- NOTE | 2020-03-03 12:28 | PN ---
S Progress Note Note: Nurse Aminta Nelson reports pt's decreased blood pressure. Pt reports he feels fine and denies any discomfort at this time. Vital Signs - 24 hr 03/02/20 03/02/20 03/03/20 15:00 20:30 06:07 Temperature 98.2 F Pulse Rate 18 L Respiratory 103 H Rate Blood Pressure 73/48 L O2 Sat by Pulse 94 L 100 100 Oximetry (%) 03/03/20 03/03/20 03/03/20 10:00 10:54 10:55 Temperature Pulse Rate 61 59 L 60 Respiratory 18 18 Rate Blood Pressure 101/64 93/56 L 102/60 O2 Sat by Pulse Oximetry (%) 03/03/20 03/03/20 03/03/20 11:24 11:25 12:06 Temperature Pulse Rate 59 L 61 54 L Respiratory 18 18 18 Rate Blood Pressure 94/57 L 116/59 L 104/61 O2 Sat by Pulse Oximetry (%) Aloert o x 3 nad oob ambulating with steady gait maintain safety d/w nurse re:To hold BP meds this morning and increase hydration Nurse informed psych re:psych meds/status
[2020-03-03] MEDS: MELATONIN 5 MG TABLETS PO SCH (21:00)
[2020-03-03] MEDS: hydrOXYzine PAMOATE 25 MG CAPSULE (FP) PO PRN (21:00)
[2020-03-03] MEDS: THIAMINE HCL 100 MG TABLET (FP) PO SCH (21:00)
[2020-03-03] MEDS: traZODone HCL 100 MG TABLET (FP) PO SCH (21:00)
[2020-03-04] MEDS ORDERED: METHADONE HCL 10 MG TABLET ONE (03:55)
[2020-03-04] MEDS ORDERED: METHADONE HCL 40 MG DISPERSABLE TABLET ONE (03:56)
[2020-03-04] MEDS: METHADONE 160 MG, METHADONE 30 MG PO SCH (06:07)
[2020-03-04] MEDS: MAG HYDROX/AL HYDROX/SIMETH 30 ML UNIT-DOSE CUP PO PRN (06:12)
[2020-03-04] MEDS: CITALOPRAM HYDROBROMIDE 20 MG TABLET PO SCH (10:05)
[2020-03-04] MEDS: risperiDONE 1 MG TABLET PO SCH ×2 (10:06→21:03)
[2020-03-04] MEDS: PRENATAL VITAMINS W/ FOLIC ACID TABLET (FP) PO SCH (10:06)
[2020-03-04] MEDS: CLOTRIMAZOLE 1% CREAM 15 GM TUBE TP SCH ×2 (10:06→21:04)
[2020-03-04] MEDS: NICOTINE 14 MG/24 HOURS TOPICAL PATCH TD SCH (10:06)
[2020-03-04] MEDS: THIAMINE HCL 100 MG TABLET (FP) PO SCH (21:03)
[2020-03-04] MEDS: traZODone HCL 100 MG TABLET (FP) PO SCH (21:03)
[2020-03-04] MEDS: hydrOXYzine PAMOATE 25 MG CAPSULE (FP) PO PRN (21:03)
[2020-03-04] MEDS: MELATONIN 5 MG TABLETS PO SCH (21:04)
[2020-03-05] MEDS ORDERED: METHADONE HCL 10 MG TABLET ONE (03:17)
[2020-03-05] MEDS ORDERED: METHADONE HCL 40 MG DISPERSABLE TABLET ONE (03:17)
[2020-03-05] MEDS: METHADONE 160 MG, METHADONE 30 MG PO SCH (06:08)
[2020-03-05] MEDS: CITALOPRAM HYDROBROMIDE 20 MG TABLET PO SCH (09:54)
[2020-03-05] MEDS: risperiDONE 1 MG TABLET PO SCH ×2 (09:54→21:01)
[2020-03-05] MEDS: PRENATAL VITAMINS W/ FOLIC ACID TABLET (FP) PO SCH (09:55)
[2020-03-05] MEDS: CLOTRIMAZOLE 1% CREAM 15 GM TUBE TP SCH ×2 (09:55→21:02)
[2020-03-05] MEDS: hydrOXYzine PAMOATE 25 MG CAPSULE (FP) PO PRN ×2 (09:58→21:01)
[2020-03-05] MEDS: IBUPROFEN 400 MG TABLET (FP) PO PRN (09:58)
[2020-03-05] MEDS: MAGNESIUM HYDROX 2400MG/30ML ORAL SUSPENSION 30 ML CUP PO PRN ×2 (09:59→21:03)
[2020-03-05] MEDS: NICOTINE 14 MG/24 HOURS TOPICAL PATCH TD SCH (11:32)
[2020-03-05] MEDS: MELATONIN 5 MG TABLETS PO SCH (21:01)
[2020-03-05] MEDS: THIAMINE HCL 100 MG TABLET (FP) PO SCH (21:01)
[2020-03-05] MEDS: traZODone HCL 100 MG TABLET (FP) PO SCH (21:01)
[2020-03-06] MEDS ORDERED: METHADONE HCL 40 MG DISPERSABLE TABLET ONE (03:54)
[2020-03-06] MEDS ORDERED: METHADONE HCL 10 MG TABLET ONE (03:54)
[2020-03-06] MEDS: METHADONE 160 MG, METHADONE 30 MG PO SCH (07:35)
[2020-03-06] MEDS: risperiDONE 1 MG TABLET PO SCH ×2 (09:59→21:04)
[2020-03-06] MEDS: CITALOPRAM HYDROBROMIDE 20 MG TABLET PO SCH (09:59)
[2020-03-06] MEDS: PRENATAL VITAMINS W/ FOLIC ACID TABLET (FP) PO SCH (09:59)
[2020-03-06] MEDS: hydrOXYzine PAMOATE 25 MG CAPSULE (FP) PO PRN ×2 (10:00→21:04)
[2020-03-06] MEDS: COLLOIDAL OATMEAL 1 BAR EACH TP PRN (10:01)
[2020-03-06] MEDS: CLOTRIMAZOLE 1% CREAM 15 GM TUBE TP SCH ×2 (10:03→21:04)
[2020-03-06] MEDS: NICOTINE 14 MG/24 HOURS TOPICAL PATCH TD SCH (10:04)
[2020-03-06] MEDS: THIAMINE HCL 100 MG TABLET (FP) PO SCH (21:04)
[2020-03-06] MEDS: MELATONIN 5 MG TABLETS PO SCH (21:04)
[2020-03-06] MEDS: traZODone HCL 100 MG TABLET (FP) PO SCH (21:04)
[2020-03-07] MEDS ORDERED: METHADONE HCL 40 MG DISPERSABLE TABLET ONE (06:08)
[2020-03-07] MEDS ORDERED: METHADONE HCL 10 MG TABLET ONE (06:08)
[2020-03-07] MEDS: METHADONE 160 MG, METHADONE 30 MG PO SCH (06:13)
[2020-03-07] MEDS: CLOTRIMAZOLE 1% CREAM 15 GM TUBE TP SCH ×2 (09:26→21:05)
[2020-03-07] MEDS: PRENATAL VITAMINS W/ FOLIC ACID TABLET (FP) PO SCH (09:26)
[2020-03-07] MEDS: risperiDONE 1 MG TABLET PO SCH ×2 (09:26→21:05)
[2020-03-07] MEDS: hydrOXYzine PAMOATE 25 MG CAPSULE (FP) PO PRN (09:26)
[2020-03-07] MEDS: CITALOPRAM HYDROBROMIDE 20 MG TABLET PO SCH (09:26)
[2020-03-07] MEDS: NICOTINE 14 MG/24 HOURS TOPICAL PATCH TD SCH (09:28)
[2020-03-07] MEDS: MAG HYDROX/AL HYDROX/SIMETH 30 ML UNIT-DOSE CUP PO PRN (19:07)
[2020-03-07] MEDS: THIAMINE HCL 100 MG TABLET (FP) PO SCH (21:05)
[2020-03-07] MEDS: MELATONIN 5 MG TABLETS PO SCH (21:05)
[2020-03-07] MEDS: traZODone HCL 100 MG TABLET (FP) PO SCH (21:05)
[2020-03-08] MEDS ORDERED: METHADONE HCL 10 MG TABLET ONE (03:55)
[2020-03-08] MEDS ORDERED: METHADONE HCL 40 MG DISPERSABLE TABLET ONE (03:56)
[2020-03-08] MEDS: METHADONE 160 MG, METHADONE 30 MG PO SCH (06:01)
[2020-03-08] MEDS: MAG HYDROX/AL HYDROX/SIMETH 30 ML UNIT-DOSE CUP PO PRN (06:04)
[2020-03-08] MEDS: risperiDONE 1 MG TABLET PO SCH ×2 (09:27→21:07)
[2020-03-08] MEDS: PRENATAL VITAMINS W/ FOLIC ACID TABLET (FP) PO SCH (09:27)
[2020-03-08] MEDS: CITALOPRAM HYDROBROMIDE 20 MG TABLET PO SCH (09:27)
[2020-03-08] MEDS: hydrOXYzine PAMOATE 25 MG CAPSULE (FP) PO PRN (09:28)
[2020-03-08] MEDS: NICOTINE 14 MG/24 HOURS TOPICAL PATCH TD SCH (09:29)
[2020-03-08] MEDS: CLOTRIMAZOLE 1% CREAM 15 GM TUBE TP SCH ×2 (09:29→21:08)
[2020-03-08] MEDS: MELATONIN 5 MG TABLETS PO SCH (21:07)
[2020-03-08] MEDS: THIAMINE HCL 100 MG TABLET (FP) PO SCH (21:07)
[2020-03-08] MEDS: traZODone HCL 100 MG TABLET (FP) PO SCH (21:07)
[2020-03-08 21:16] VITALS: BMI 20.7
[2020-03-09] MEDS ORDERED: METHADONE HCL 40 MG DISPERSABLE TABLET ONE (03:16)
[2020-03-09] MEDS ORDERED: METHADONE HCL 10 MG TABLET ONE (03:16)
[2020-03-09] MEDS: METHADONE 160 MG, METHADONE 30 MG PO SCH (06:11)
[2020-03-09] MEDS: MAG HYDROX/AL HYDROX/SIMETH 30 ML UNIT-DOSE CUP PO PRN (06:13)
[2020-03-09] MEDS: CITALOPRAM HYDROBROMIDE 20 MG TABLET PO SCH (09:20)
[2020-03-09] MEDS: CLOTRIMAZOLE 1% CREAM 15 GM TUBE TP SCH ×2 (09:21→21:10)
[2020-03-09] MEDS: risperiDONE 1 MG TABLET PO SCH ×2 (09:21→21:10)
[2020-03-09] MEDS: PRENATAL VITAMINS W/ FOLIC ACID TABLET (FP) PO SCH (09:21)
[2020-03-09] MEDS: hydrOXYzine PAMOATE 25 MG CAPSULE (FP) PO PRN ×2 (09:22→21:10)
[2020-03-09] MEDS: NICOTINE 14 MG/24 HOURS TOPICAL PATCH TD SCH (09:22)
[2020-03-09] MEDS: COLLOIDAL OATMEAL 1 BAR EACH TP PRN (17:52)
[2020-03-09 20:52] VITALS: BP 136/71
[2020-03-09] MEDS: THIAMINE HCL 100 MG TABLET (FP) PO SCH (21:10)
[2020-03-09] MEDS: traZODone HCL 100 MG TABLET (FP) PO SCH (21:10)
[2020-03-09] MEDS: MELATONIN 5 MG TABLETS PO SCH (21:10)
[2020-03-10] MEDS ORDERED: METHADONE HCL 10 MG TABLET ONE (03:05)
[2020-03-10] MEDS ORDERED: METHADONE HCL 40 MG DISPERSABLE TABLET ONE (03:05)
[2020-03-10] MEDS: METHADONE 160 MG, METHADONE 30 MG PO SCH (06:10)
[2020-03-10 06:38] VITALS: PULSE 95; TEMP 98
--- NOTE | 2020-03-10 08:47 | DS ---
[facility] Rehab Discharge Summary - [facility] Rehab Discharge Summary Admission Date: 02/29/20 Discharge Date: 03/10/20 - History Present History: Alcohol dependence, Cocaine dependence, MMTP Pertinent Past History: Anemia Hep C Gastritis/Ulcer/pancreatitis(reports did not follow up with treatment recommendations at [facility] "because was drinking too much") GERD - Discharge Physical Exam Vital Signs: Vital Signs Temperature 98.0 F 03/10/20 06:00 Pulse Rate 95 H 03/10/20 06:00 Respiratory Rate 18 03/10/20 06:00 Blood Pressure 136/71 03/10/20 06:00 O2 Sat by Pulse Oximetry (%) 96 03/10/20 06:00 - Treatment Discharge Condition: Discharge condition good, Rehabilitated safely, Responded well, Outpatient referral accepted Hospital Course: Pt completed rehab and discharged today. CD aftercare referral to [facility] program. - Medication Discharge Medications: Ambulatory Orders traZODone HCL [Trazodone HCl] 100 mg PO HS 11/27/19 Methadone [Dolophine -] 190 mg PO DAILY@0600 02/26/20 Ferrous Sulfate 325 mg PO DAILY #14 tablet 03/10/20 - Medication-Assisted Treatment (MAT) Medication-Assisted Treatment (MAT): No - Discharge Instructions Diet, activity, other medical instructions: Diet:Regular Activity:oob ad turner Other medical instructions:follow up with primary care with PCP, Dr. Padilla @ [facility] on [address], [place]. - Diagnosis (1) Alcohol dependence Status: Chronic Qualifiers: Substance use status: uncomplicated Qualified Code(s): F10.20 - Alcohol dependence, uncomplicated (2) Anemia Status: Chronic Qualifiers: Anemia type: iron deficiency Iron deficiency anemia type: unspecified iron deficiency Qualified Code(s): D50.9 - Iron deficiency anemia, unspecified (3) Cocaine dependence Status: Chronic Qualifiers: Substance use status: uncomplicated Qualified Code(s): F14.20 - Cocaine dependence, uncomplicated (4) Methadone maintenance therapy patient Status: Chronic (5) Nicotine dependence Status: Chronic Qualifiers: Nicotine product type: cigarettes Substance use status: in withdrawal Qualified Code(s): F17.213 - Nicotine dependence, cigarettes, with withdrawal - Follow-up Referral Minutes to complete discharge: 25 - AMA Did Patient Leave Against Medical Advice: No Additional Comments: Pt reports he has primary care with Dr. Padilla on [address], [place], [place].
[2020-03-10] MEDS: risperiDONE 1 MG TABLET PO SCH (09:08)
[2020-03-10] MEDS: NICOTINE 14 MG/24 HOURS TOPICAL PATCH TD SCH (09:08)
[2020-03-10] MEDS: CITALOPRAM HYDROBROMIDE 20 MG TABLET PO SCH (09:08)
[2020-03-10] MEDS: PRENATAL VITAMINS W/ FOLIC ACID TABLET (FP) PO SCH (09:08)
[2020-03-10] MEDS: hydrOXYzine PAMOATE 25 MG CAPSULE (FP) PO PRN (09:09)
[2020-03-10] MEDS: CLOTRIMAZOLE 1% CREAM 15 GM TUBE TP SCH (09:09)
== END 2020-03-10 09:45 | disposition home or self-care (01) | DRG 772 ==
LOC: YASAS 13:23 → Y5N 13:24
PROVIDERS: ADMIT Allergy & Immunology; ATTEND Allergy & Immunology
PROC: HZ42ZZZ Group Counseling for Substance Abuse Treatment, Cognitive-Behavioral (ICD-10-PCS; principal; 2020-02-29)
DX: F10.20 Alcohol dependence, uncomplicated (principal); F14.20 Cocaine dependence, uncomplicated; F12.20 Cannabis dependence, uncomplicated; F17.210 Nicotine dependence, cigarettes, uncomplicated; F31.9 Bipolar disorder, unspecified; D50.9 Iron deficiency anemia, unspecified; B18.2 Chronic viral hepatitis C; K21.9 Gastro-esophageal reflux disease without esophagitis; Z62.810 Personal history of physical and sexual abuse in childhood; Z87.11 Personal history of peptic ulcer disease; Z87.19 Personal history of other diseases of the digestive system; Z56.0 Unemployment, unspecified; Z59.0 Homelessness
CPT/HCPCS: 90670; J2794

== ENCOUNTER 2020-05-11 12:16 | Inpatient (IN) | payer OTHER ==
[2020-05-11 17:00] VITALS: BMI 19.5
[2020-05-11] MEDS ORDERED: IBUPROFEN 400 MG TABLET (FP) PO PRN (17:04)
[2020-05-11] MEDS ORDERED: BISMUTH SUBSALICYLATE 524 MG/30 ML UD PO PRN (17:04)
[2020-05-11] MEDS ORDERED: METHOCARBAMOL 500 MG TABLET PO PRN (17:04)
[2020-05-11] MEDS ORDERED: MAGNESIUM CITRATE 300 ML BOTTLE PO PRN (17:04)
[2020-05-11] MEDS ORDERED: MAG HYDROX/AL HYDROX/SIMETH 30 ML UNIT-DOSE CUP PO PRN (17:04)
[2020-05-11] MEDS ORDERED: chlordiazePOXIDE HCL 25 MG CAPSULE PO PRN (17:04)
[2020-05-11] MEDS ORDERED: MENTHOL/PHENOL 1 EACH UD MM PRN (17:04)
[2020-05-11] MEDS ORDERED: ACETAMINOPHEN 325 MG TABLET (FP) PO PRN (17:04)
[2020-05-11] MEDS ORDERED: NICOTINE POLACRILEX 2 MG GUM BUC PRN (17:04)
[2020-05-11] MEDS ORDERED: ONDANSETRON *ODT* 4 MG TABLET SL PRN (17:04)
[2020-05-11] MEDS: chlordiazePOXIDE HCL 25 MG CAPSULE PO SCH ×2 (18:33→22:39)
[2020-05-11] MEDS: hydrOXYzine PAMOATE 25 MG CAPSULE (FP) PO SCH ×2 (18:33→22:39)
[2020-05-11] MEDS: NICOTINE 14 MG/24 HOURS TOPICAL PATCH TD SCH (18:36)
[2020-05-11] MEDS: PRENATAL VITAMINS W/ FOLIC ACID TABLET (FP) PO SCH (18:37)
[2020-05-11] MEDS: THIAMINE HCL 100 MG TABLET (FP) PO SCH (22:39)
[2020-05-11] MEDS: MELATONIN 5 MG TABLETS PO SCH (22:39)
[2020-05-11] MEDS: ACETAMINOPHEN 325 MG TABLET (FP) PO PRN (22:42)
[2020-05-12] MEDS: hydrOXYzine PAMOATE 25 MG CAPSULE (FP) PO SCH (06:38)
[2020-05-12] MEDS: chlordiazePOXIDE HCL 25 MG CAPSULE PO SCH ×4 (06:38→22:16)
[2020-05-12] MEDS ORDERED: METHADONE 160 MG, METHADONE 30 MG PO ONE (09:59)
[2020-05-12] MEDS ORDERED: METHADONE HCL 10 MG TABLET PO ONE (09:59)
[2020-05-12] MEDS: CITALOPRAM HYDROBROMIDE 20 MG TABLET PO SCH (10:22)
[2020-05-12] MEDS ORDERED: METHADONE HCL 40 MG DISPERSABLE TABLET ONE (10:23)
[2020-05-12] MEDS ORDERED: METHADONE HCL 10 MG TABLET ONE (10:23)
[2020-05-12] MEDS: PRENATAL VITAMINS W/ FOLIC ACID TABLET (FP) PO SCH (10:24)
[2020-05-12] MEDS: NICOTINE 14 MG/24 HOURS TOPICAL PATCH TD SCH (10:24)
[2020-05-12] MEDS: risperiDONE 1 MG TABLET PO SCH ×2 (10:28→22:16)
[2020-05-12 10:42] LABS: HEMATOCRIT 36.9 % (35.4-49); HEMOGLOBIN 11.5 GM/dL (11.7-16.9); MCHC 31.2 g/dl (32.0-35.9); MEAN CELL VOLUME 70.5 fl (80-96); MEAN PLT VOLUME 8.7 fl (7.5-11.1); PLATELET COUNT 214 K/MM3 (134-434); RBC 5.24 M/mm3 (4.00-5.60); RDW 16.9 % (11.9-15.9); WHITE BLOOD COUNT 3.8 K/mm3 (4.0-10.0)
[2020-05-12 10:53] LABS: POTASSIUM 4.1 mmol/L (3.5-5.1)
[2020-05-12 10:58] LABS: BLOOD UREA NITROGEN 9.9 mg/dL (7-18)
[2020-05-12 10:59] LABS: ALBUMIN 3.6 g/dl (3.4-5.0); CALCIUM 8.8 mg/dL (8.5-10.1)
[2020-05-12 11:04] LABS: BILIRUBIN,TOTAL 0.7 mg/dL (0.2-1); TOT PROT 7.7 g/dl (6.4-8.2)
[2020-05-12] MEDS ORDERED: TETRAHYDROZOLINE HCL EYE DROPS OU PRN (12:44)
[2020-05-12] MEDS: TOLNAFTATE 1% CREAM 15 GM TUBE TP SCH ×2 (14:56→22:58)
[2020-05-12] MEDS: ACETAMINOPHEN 325 MG TABLET (FP) PO PRN (17:33)
[2020-05-12] MEDS: MELATONIN 5 MG TABLETS PO SCH (22:16)
[2020-05-12] MEDS: THIAMINE HCL 100 MG TABLET (FP) PO SCH (22:16)
[2020-05-12] MEDS: traZODone HCL 100 MG TABLET (FP) PO SCH (22:16)
[2020-05-13] MEDS ORDERED: METHADONE HCL 10 MG TABLET ONE (04:24)
[2020-05-13] MEDS ORDERED: METHADONE HCL 40 MG DISPERSABLE TABLET ONE (04:24)
[2020-05-13] MEDS: METHADONE 160 MG, METHADONE 30 MG PO SCH (05:35)
[2020-05-13] MEDS: chlordiazePOXIDE HCL 25 MG CAPSULE PO SCH ×4 (05:37→22:27)
[2020-05-13] MEDS ORDERED: METHADONE HCL 40 MG DISPERSABLE TABLET PO SCH (06:00)
[2020-05-13] MEDS: PRENATAL VITAMINS W/ FOLIC ACID TABLET (FP) PO SCH (10:06)
[2020-05-13] MEDS: CITALOPRAM HYDROBROMIDE 20 MG TABLET PO SCH (10:06)
[2020-05-13] MEDS: NICOTINE 14 MG/24 HOURS TOPICAL PATCH TD SCH (10:06)
[2020-05-13] MEDS: risperiDONE 1 MG TABLET PO SCH ×2 (10:07→22:27)
[2020-05-13] MEDS: TOLNAFTATE 1% CREAM 15 GM TUBE TP SCH ×2 (10:07→22:25)
[2020-05-13] MEDS: MELATONIN 5 MG TABLETS PO SCH (22:26)
[2020-05-13] MEDS: traZODone HCL 100 MG TABLET (FP) PO SCH (22:27)
[2020-05-13] MEDS: THIAMINE HCL 100 MG TABLET (FP) PO SCH (22:27)
[2020-05-14] MEDS ORDERED: chlordiazePOXIDE HCL 10 MG CAPSULE PO PRN
[2020-05-14] MEDS ORDERED: METHADONE HCL 10 MG TABLET ONE (03:15)
[2020-05-14] MEDS ORDERED: METHADONE HCL 40 MG DISPERSABLE TABLET ONE (03:16)
[2020-05-14] MEDS: BENZOCAINE 20 % GEL TUBE MM PRN ×2 (03:59→12:28)
[2020-05-14] MEDS: chlordiazePOXIDE HCL 10 MG CAPSULE PO SCH ×4 (05:38→22:07)
[2020-05-14] MEDS: METHADONE 160 MG, METHADONE 30 MG PO SCH (05:38)
[2020-05-14] MEDS: TOLNAFTATE 1% CREAM 15 GM TUBE TP SCH ×2 (09:58→23:11)
[2020-05-14] MEDS: CITALOPRAM HYDROBROMIDE 20 MG TABLET PO SCH (09:59)
[2020-05-14] MEDS: NICOTINE 14 MG/24 HOURS TOPICAL PATCH TD SCH (09:59)
[2020-05-14] MEDS: risperiDONE 1 MG TABLET PO SCH ×2 (09:59→22:07)
[2020-05-14] MEDS: PRENATAL VITAMINS W/ FOLIC ACID TABLET (FP) PO SCH (09:59)
[2020-05-14] MEDS: MAGNESIUM HYDROX 2400MG/30ML ORAL SUSPENSION 30 ML CUP PO PRN (17:55)
[2020-05-14] MEDS: traZODone HCL 100 MG TABLET (FP) PO SCH (22:07)
[2020-05-14] MEDS: THIAMINE HCL 100 MG TABLET (FP) PO SCH (22:07)
[2020-05-14] MEDS: MELATONIN 5 MG TABLETS PO SCH (23:10)
[2020-05-15] MEDS ORDERED: METHADONE HCL 10 MG TABLET ONE (04:41)
[2020-05-15] MEDS ORDERED: METHADONE HCL 40 MG DISPERSABLE TABLET ONE (04:41)
[2020-05-15] MEDS: METHADONE 160 MG, METHADONE 30 MG PO SCH (06:06)
[2020-05-15] MEDS: chlordiazePOXIDE HCL 10 MG CAPSULE PO SCH ×2 (06:06→17:53)
[2020-05-15] MEDS: CITALOPRAM HYDROBROMIDE 20 MG TABLET PO SCH (10:50)
[2020-05-15] MEDS: risperiDONE 1 MG TABLET PO SCH ×2 (10:50→22:01)
[2020-05-15] MEDS: TOLNAFTATE 1% CREAM 15 GM TUBE TP SCH ×2 (10:50→22:01)
[2020-05-15] MEDS: PRENATAL VITAMINS W/ FOLIC ACID TABLET (FP) PO SCH (10:50)
[2020-05-15] MEDS: NICOTINE 14 MG/24 HOURS TOPICAL PATCH TD SCH (10:50)
[2020-05-15] MEDS: MAGNESIUM HYDROX 2400MG/30ML ORAL SUSPENSION 30 ML CUP PO PRN (10:51)
[2020-05-15] MEDS: traZODone HCL 100 MG TABLET (FP) PO SCH (22:01)
[2020-05-15] MEDS: THIAMINE HCL 100 MG TABLET (FP) PO SCH (22:01)
[2020-05-15] MEDS: MELATONIN 5 MG TABLETS PO SCH (22:02)
[2020-05-16] MEDS ORDERED: METHADONE HCL 10 MG TABLET ONE (04:09)
[2020-05-16] MEDS ORDERED: METHADONE HCL 40 MG DISPERSABLE TABLET ONE (04:10)
[2020-05-16] MEDS ORDERED: chlordiazePOXIDE HCL 10 MG CAPSULE PO ONE (05:00)
[2020-05-16] MEDS: METHADONE 160 MG, METHADONE 30 MG PO SCH (05:32)
[2020-05-16] MEDS: PRENATAL VITAMINS W/ FOLIC ACID TABLET (FP) PO SCH (10:19)
[2020-05-16] MEDS: risperiDONE 1 MG TABLET PO SCH (10:19)
[2020-05-16] MEDS: CITALOPRAM HYDROBROMIDE 20 MG TABLET PO SCH (10:19)
[2020-05-16] MEDS: TOLNAFTATE 1% CREAM 15 GM TUBE TP SCH (10:19)
[2020-05-16] MEDS: NICOTINE 14 MG/24 HOURS TOPICAL PATCH TD SCH (10:20)
[2020-05-16 13:39] VITALS: BP 109/67; PULSE 61; TEMP 98
== END 2020-05-16 13:55 | disposition other institution (70) | DRG 773 ==
LOC: YASAS 12:16 → Y6N 17:35
PROVIDERS: ADMIT Allergy & Immunology; ATTEND Allergy & Immunology
PROC: HZ2ZZZZ Detoxification Services for Substance Abuse Treatment (ICD-10-PCS; principal; 2020-05-11)
DX: F10.230 Alcohol dependence with withdrawal, uncomplicated (principal); F11.20 Opioid dependence, uncomplicated; F14.20 Cocaine dependence, uncomplicated; F17.210 Nicotine dependence, cigarettes, uncomplicated; F41.1 Generalized anxiety disorder; F31.9 Bipolar disorder, unspecified; F19.24 Other psychoactive substance dependence with psychoactive substance-induced mood disorder; F19.282 Other psychoactive substance dependence with psychoactive substance-induced sleep disorder; F50.9 Eating disorder, unspecified; B19.20 Unspecified viral hepatitis C without hepatic coma; Z87.19 Personal history of other diseases of the digestive system; Z62.810 Personal history of physical and sexual abuse in childhood; Z56.0 Unemployment, unspecified
CPT/HCPCS: 36415; 80053; 85027; 86780; C9803; J2794; U0003

== ENCOUNTER 2020-05-16 13:59 | Inpatient (IN) | payer OTHER ==
[~2020-05-16 13:59] MED LIST: ACETAMINOPHEN 325 MG TABLET (FP) PO PRN; BENZOCAINE 20 % GEL TUBE MM PRN; IBUPROFEN 400 MG TABLET (FP) PO PRN; LOPERAMIDE HCL 2 MG CAPSULE PO PRN; MAG HYDROX/AL HYDROX/SIMETH 30 ML UNIT-DOSE CUP PO PRN; MAGNESIUM CITRATE 300 ML BOTTLE PO PRN; MAGNESIUM HYDROX 2400MG/30ML ORAL SUSPENSION 30 ML CUP PO PRN; MENTHOL/PHENOL 1 EACH UD MM PRN; P-EPHED 60MG/TRIPROLIDI 2.5MG TABLET PO PRN; TETRAHYDROZOLINE HCL EYE DROPS OU PRN; guaiFENesin 200 MG/10 ML 10 ML UNIT-DOSE CUPS PO PRN
[2020-05-16] MEDS: THIAMINE HCL 100 MG TABLET (FP) PO SCH (21:09)
[2020-05-16] MEDS: MELATONIN 5 MG TABLETS PO SCH (21:09)
[2020-05-16] MEDS: traZODone HCL 100 MG TABLET (FP) PO SCH (21:10)
[2020-05-16] MEDS: risperiDONE 1 MG TABLET PO SCH (21:10)
[2020-05-16] MEDS: TOLNAFTATE 1% CREAM 15 GM TUBE TP SCH (21:11)
[2020-05-17] MEDS ORDERED: METHADONE HCL 10 MG TABLET PO SCH (07:00)
[2020-05-17] MEDS ORDERED: METHADONE HCL 10 MG TABLET ONE (07:07)
[2020-05-17] MEDS ORDERED: METHADONE HCL 40 MG DISPERSABLE TABLET ONE (07:07)
[2020-05-17] MEDS: METHADONE 160 MG, METHADONE 30 MG PO SCH (07:10)
[2020-05-17] MEDS: PRENATAL VITAMINS W/ FOLIC ACID TABLET (FP) PO SCH (09:25)
[2020-05-17] MEDS: CITALOPRAM HYDROBROMIDE 20 MG TABLET PO SCH (09:25)
[2020-05-17] MEDS: risperiDONE 1 MG TABLET PO SCH ×2 (09:25→21:37)
[2020-05-17] MEDS: TOLNAFTATE 1% CREAM 15 GM TUBE TP SCH ×2 (09:25→21:38)
[2020-05-17] MEDS: NICOTINE 14 MG/24 HOURS TOPICAL PATCH TD SCH (09:25)
[2020-05-17] MEDS ORDERED: NICOTINE 7 MG/24 HOURS TOPICAL PATCH TD SCH (10:00)
[2020-05-17] MEDS: THIAMINE HCL 100 MG TABLET (FP) PO SCH (21:37)
[2020-05-17] MEDS: MELATONIN 5 MG TABLETS PO SCH (21:37)
[2020-05-17] MEDS: traZODone HCL 100 MG TABLET (FP) PO SCH (21:37)
[2020-05-18] MEDS ORDERED: METHADONE HCL 40 MG DISPERSABLE TABLET ONE (04:59)
[2020-05-18] MEDS ORDERED: METHADONE HCL 10 MG TABLET ONE (05:00)
[2020-05-18] MEDS: METHADONE 160 MG, METHADONE 30 MG PO SCH (06:27)
[2020-05-18] MEDS: CITALOPRAM HYDROBROMIDE 20 MG TABLET PO SCH (10:04)
[2020-05-18] MEDS: PRENATAL VITAMINS W/ FOLIC ACID TABLET (FP) PO SCH (10:04)
[2020-05-18] MEDS: NICOTINE 14 MG/24 HOURS TOPICAL PATCH TD SCH (10:04)
[2020-05-18] MEDS: risperiDONE 1 MG TABLET PO SCH ×2 (10:04→21:22)
[2020-05-18] MEDS: TOLNAFTATE 1% CREAM 15 GM TUBE TP SCH ×2 (10:04→21:21)
[2020-05-18] MEDS: NICOTINE POLACRILEX 2 MG GUM BUC PRN (10:07)
[2020-05-18] MEDS ORDERED: SODIUM PHOSPHATE/NA BIPHOS 133 ML ENEMA RC ONE (12:09)
[2020-05-18] MEDS: DOCUSATE SODIUM 100 MG CAPSULE (FP) PO SCH ×2 (15:55→21:20)
[2020-05-18] MEDS: traZODone HCL 100 MG TABLET (FP) PO SCH (21:20)
[2020-05-18] MEDS: MELATONIN 5 MG TABLETS PO SCH (21:21)
[2020-05-18] MEDS: THIAMINE HCL 100 MG TABLET (FP) PO SCH (21:21)
[2020-05-19] MEDS ORDERED: METHADONE HCL 40 MG DISPERSABLE TABLET ONE (05:05)
[2020-05-19] MEDS ORDERED: METHADONE HCL 10 MG TABLET ONE (05:06)
[2020-05-19] MEDS: DOCUSATE SODIUM 100 MG CAPSULE (FP) PO SCH ×3 (06:15→21:51)
[2020-05-19] MEDS: METHADONE 160 MG, METHADONE 30 MG PO SCH (06:15)
[2020-05-19] MEDS: CITALOPRAM HYDROBROMIDE 20 MG TABLET PO SCH (10:59)
[2020-05-19] MEDS: risperiDONE 1 MG TABLET PO SCH ×2 (10:59→21:51)
[2020-05-19] MEDS: TOLNAFTATE 1% CREAM 15 GM TUBE TP SCH ×2 (10:59→21:52)
[2020-05-19] MEDS: PRENATAL VITAMINS W/ FOLIC ACID TABLET (FP) PO SCH (10:59)
[2020-05-19] MEDS: NICOTINE 14 MG/24 HOURS TOPICAL PATCH TD SCH (10:59)
[2020-05-19] MEDS: NICOTINE POLACRILEX 2 MG GUM BUC PRN (11:01)
[2020-05-19] MEDS: hydrOXYzine PAMOATE 25 MG CAPSULE (FP) PO PRN ×2 (15:05→21:52)
[2020-05-19] MEDS: traZODone HCL 100 MG TABLET (FP) PO SCH (21:51)
[2020-05-19] MEDS: MELATONIN 5 MG TABLETS PO SCH (21:51)
[2020-05-19] MEDS: THIAMINE HCL 100 MG TABLET (FP) PO SCH (21:51)
[2020-05-20] MEDS ORDERED: METHADONE HCL 40 MG DISPERSABLE TABLET ONE (05:14)
[2020-05-20] MEDS ORDERED: METHADONE HCL 10 MG TABLET ONE (05:14)
[2020-05-20] MEDS: METHADONE 160 MG, METHADONE 30 MG PO SCH (06:34)
[2020-05-20] MEDS: DOCUSATE SODIUM 100 MG CAPSULE (FP) PO SCH (06:34)
[2020-05-20] MEDS: CITALOPRAM HYDROBROMIDE 20 MG TABLET PO SCH (09:19)
[2020-05-20] MEDS: NICOTINE 14 MG/24 HOURS TOPICAL PATCH TD SCH (09:20)
[2020-05-20] MEDS: TOLNAFTATE 1% CREAM 15 GM TUBE TP SCH ×2 (09:20→21:13)
[2020-05-20] MEDS: PRENATAL VITAMINS W/ FOLIC ACID TABLET (FP) PO SCH (09:20)
[2020-05-20] MEDS: risperiDONE 1 MG TABLET PO SCH ×2 (09:20→21:13)
[2020-05-20] MEDS: NICOTINE POLACRILEX 2 MG GUM BUC PRN (09:22)
[2020-05-20] MEDS ORDERED: MINERAL OIL ENEMA 133 ML ENEMA RC ONE (10:21)
[2020-05-20] MEDS ORDERED: BISACODYL 5 MG TABLET.DR (FP) PO ONE ×2 (10:22)
[2020-05-20] MEDS: traZODone HCL 100 MG TABLET (FP) PO SCH (21:12)
[2020-05-20] MEDS: MELATONIN 5 MG TABLETS PO SCH (21:13)
[2020-05-20] MEDS: THIAMINE HCL 100 MG TABLET (FP) PO SCH (21:13)
[2020-05-21] MEDS ORDERED: METHADONE HCL 40 MG DISPERSABLE TABLET ONE (04:49)
[2020-05-21] MEDS ORDERED: METHADONE HCL 10 MG TABLET ONE (04:49)
[2020-05-21] MEDS: METHADONE 160 MG, METHADONE 30 MG PO SCH (06:11)
[2020-05-21] MEDS: TOLNAFTATE 1% CREAM 15 GM TUBE TP SCH ×2 (10:15→21:13)
[2020-05-21] MEDS: PRENATAL VITAMINS W/ FOLIC ACID TABLET (FP) PO SCH (10:15)
[2020-05-21] MEDS: risperiDONE 1 MG TABLET PO SCH ×2 (10:15→21:11)
[2020-05-21] MEDS: CITALOPRAM HYDROBROMIDE 20 MG TABLET PO SCH (10:15)
[2020-05-21] MEDS: NICOTINE POLACRILEX 2 MG GUM BUC PRN (10:15)
[2020-05-21] MEDS: NICOTINE 14 MG/24 HOURS TOPICAL PATCH TD SCH (10:15)
[2020-05-21] MEDS: THIAMINE HCL 100 MG TABLET (FP) PO SCH (21:11)
[2020-05-21] MEDS: MELATONIN 5 MG TABLETS PO SCH (21:11)
[2020-05-21] MEDS: traZODone HCL 100 MG TABLET (FP) PO SCH (21:11)
[2020-05-21] MEDS: DOCUSATE SODIUM 100 MG CAPSULE (FP) PO SCH (21:12)
[2020-05-22] MEDS ORDERED: METHADONE HCL 10 MG TABLET ONE (05:35)
[2020-05-22] MEDS ORDERED: METHADONE HCL 40 MG DISPERSABLE TABLET ONE (05:35)
[2020-05-22] MEDS: METHADONE 160 MG, METHADONE 30 MG PO SCH (05:58)
[2020-05-22] MEDS: risperiDONE 1 MG TABLET PO SCH ×2 (10:20→21:23)
[2020-05-22] MEDS: TOLNAFTATE 1% CREAM 15 GM TUBE TP SCH ×2 (10:20→21:24)
[2020-05-22] MEDS: NICOTINE 14 MG/24 HOURS TOPICAL PATCH TD SCH (10:20)
[2020-05-22] MEDS: PRENATAL VITAMINS W/ FOLIC ACID TABLET (FP) PO SCH (10:20)
[2020-05-22] MEDS: CITALOPRAM HYDROBROMIDE 20 MG TABLET PO SCH (10:20)
[2020-05-22] MEDS: MELATONIN 5 MG TABLETS PO SCH (21:23)
[2020-05-22] MEDS: DOCUSATE SODIUM 100 MG CAPSULE (FP) PO SCH (21:23)
[2020-05-22] MEDS: traZODone HCL 100 MG TABLET (FP) PO SCH (21:23)
[2020-05-22] MEDS: THIAMINE HCL 100 MG TABLET (FP) PO SCH (21:23)
[2020-05-23] MEDS ORDERED: METHADONE HCL 40 MG DISPERSABLE TABLET ONE (05:40)
[2020-05-23] MEDS ORDERED: METHADONE HCL 10 MG TABLET ONE (05:41)
[2020-05-23] MEDS: METHADONE 160 MG, METHADONE 30 MG PO SCH (06:02)
[2020-05-23] MEDS: CITALOPRAM HYDROBROMIDE 20 MG TABLET PO SCH (09:59)
[2020-05-23] MEDS: PRENATAL VITAMINS W/ FOLIC ACID TABLET (FP) PO SCH (09:59)
[2020-05-23] MEDS: risperiDONE 1 MG TABLET PO SCH ×2 (09:59→21:18)
[2020-05-23] MEDS: NICOTINE 14 MG/24 HOURS TOPICAL PATCH TD SCH (10:00)
[2020-05-23] MEDS: TOLNAFTATE 1% CREAM 15 GM TUBE TP SCH ×2 (10:00→21:18)
[2020-05-23] MEDS: DOCUSATE SODIUM 100 MG CAPSULE (FP) PO SCH (21:17)
[2020-05-23] MEDS: traZODone HCL 100 MG TABLET (FP) PO SCH (21:18)
[2020-05-23] MEDS: THIAMINE HCL 100 MG TABLET (FP) PO SCH (21:18)
[2020-05-23] MEDS: MELATONIN 5 MG TABLETS PO SCH (21:18)
[2020-05-24] MEDS ORDERED: METHADONE HCL 40 MG DISPERSABLE TABLET ONE (05:39)
[2020-05-24] MEDS ORDERED: METHADONE HCL 10 MG TABLET ONE (05:39)
[2020-05-24] MEDS: METHADONE 160 MG, METHADONE 30 MG PO SCH (05:57)
[2020-05-24] MEDS ORDERED: METHADONE HCL 10 MG TABLET PO SCH (06:00)
[2020-05-24] MEDS: PRENATAL VITAMINS W/ FOLIC ACID TABLET (FP) PO SCH (10:10)
[2020-05-24] MEDS: CITALOPRAM HYDROBROMIDE 20 MG TABLET PO SCH (10:10)
[2020-05-24] MEDS: risperiDONE 1 MG TABLET PO SCH ×2 (10:10→21:41)
[2020-05-24] MEDS: NICOTINE 14 MG/24 HOURS TOPICAL PATCH TD SCH (10:10)
[2020-05-24] MEDS: TOLNAFTATE 1% CREAM 15 GM TUBE TP SCH ×2 (10:10→21:42)
[2020-05-24] MEDS: hydrOXYzine PAMOATE 25 MG CAPSULE (FP) PO PRN (10:11)
[2020-05-24] MEDS: traZODone HCL 100 MG TABLET (FP) PO SCH (21:41)
[2020-05-24] MEDS: DOCUSATE SODIUM 100 MG CAPSULE (FP) PO SCH (21:41)
[2020-05-24] MEDS: THIAMINE HCL 100 MG TABLET (FP) PO SCH (21:42)
[2020-05-24] MEDS: MELATONIN 5 MG TABLETS PO SCH (21:42)
[2020-05-25] MEDS ORDERED: METHADONE HCL 10 MG TABLET ONE (03:05)
[2020-05-25] MEDS ORDERED: METHADONE HCL 40 MG DISPERSABLE TABLET ONE (03:05)
[2020-05-25] MEDS: METHADONE 160 MG, METHADONE 30 MG PO SCH (06:10)
[2020-05-25] MEDS: risperiDONE 1 MG TABLET PO SCH ×2 (09:24→21:08)
[2020-05-25] MEDS: PRENATAL VITAMINS W/ FOLIC ACID TABLET (FP) PO SCH (09:24)
[2020-05-25] MEDS: NICOTINE 14 MG/24 HOURS TOPICAL PATCH TD SCH (09:24)
[2020-05-25] MEDS: CITALOPRAM HYDROBROMIDE 20 MG TABLET PO SCH (10:11)
[2020-05-25] MEDS: TOLNAFTATE 1% CREAM 15 GM TUBE TP SCH ×2 (10:11→21:08)
[2020-05-25] MEDS: hydrOXYzine PAMOATE 25 MG CAPSULE (FP) PO PRN (10:12)
[2020-05-25] MEDS: traZODone HCL 100 MG TABLET (FP) PO SCH (21:08)
[2020-05-25] MEDS: THIAMINE HCL 100 MG TABLET (FP) PO SCH (21:08)
[2020-05-25] MEDS: MELATONIN 5 MG TABLETS PO SCH (21:08)
[2020-05-25] MEDS: DOCUSATE SODIUM 100 MG CAPSULE (FP) PO SCH (21:08)
[2020-05-26] MEDS ORDERED: METHADONE HCL 40 MG DISPERSABLE TABLET ONE (03:33)
[2020-05-26] MEDS ORDERED: METHADONE HCL 10 MG TABLET ONE (03:34)
[2020-05-26] MEDS: METHADONE 160 MG, METHADONE 30 MG PO SCH (06:03)
[2020-05-26] MEDS: hydrOXYzine PAMOATE 25 MG CAPSULE (FP) PO PRN (09:46)
[2020-05-26] MEDS: risperiDONE 1 MG TABLET PO SCH ×2 (09:46→21:22)
[2020-05-26] MEDS: NICOTINE 14 MG/24 HOURS TOPICAL PATCH TD SCH (09:46)
[2020-05-26] MEDS: PRENATAL VITAMINS W/ FOLIC ACID TABLET (FP) PO SCH (09:46)
[2020-05-26] MEDS: TOLNAFTATE 1% CREAM 15 GM TUBE TP SCH ×2 (09:46→21:23)
[2020-05-26] MEDS: CITALOPRAM HYDROBROMIDE 20 MG TABLET PO SCH (09:46)
[2020-05-26] MEDS: DOCUSATE SODIUM 100 MG CAPSULE (FP) PO SCH (21:22)
[2020-05-26] MEDS: THIAMINE HCL 100 MG TABLET (FP) PO SCH (21:22)
[2020-05-26] MEDS: traZODone HCL 100 MG TABLET (FP) PO SCH (21:22)
[2020-05-26] MEDS: MELATONIN 5 MG TABLETS PO SCH (21:22)
[2020-05-27] MEDS ORDERED: METHADONE HCL 10 MG TABLET ONE (05:50)
[2020-05-27] MEDS ORDERED: METHADONE HCL 40 MG DISPERSABLE TABLET ONE (05:50)
[2020-05-27] MEDS: METHADONE 160 MG, METHADONE 30 MG PO SCH (05:51)
[2020-05-27] MEDS: risperiDONE 1 MG TABLET PO SCH ×2 (09:33→21:14)
[2020-05-27] MEDS: CITALOPRAM HYDROBROMIDE 20 MG TABLET PO SCH (09:33)
[2020-05-27] MEDS: PRENATAL VITAMINS W/ FOLIC ACID TABLET (FP) PO SCH (09:33)
[2020-05-27] MEDS: NICOTINE 14 MG/24 HOURS TOPICAL PATCH TD SCH (09:34)
[2020-05-27] MEDS: hydrOXYzine PAMOATE 25 MG CAPSULE (FP) PO PRN (09:34)
[2020-05-27] MEDS: TOLNAFTATE 1% CREAM 15 GM TUBE TP SCH ×2 (09:35→21:15)
[2020-05-27] MEDS: traZODone HCL 100 MG TABLET (FP) PO SCH (21:14)
[2020-05-27] MEDS: MELATONIN 5 MG TABLETS PO SCH (21:14)
[2020-05-27] MEDS: THIAMINE HCL 100 MG TABLET (FP) PO SCH (21:14)
[2020-05-27] MEDS: DOCUSATE SODIUM 100 MG CAPSULE (FP) PO SCH (21:14)
[2020-05-28] MEDS ORDERED: METHADONE HCL 40 MG DISPERSABLE TABLET ONE (03:21)
[2020-05-28] MEDS ORDERED: METHADONE HCL 10 MG TABLET ONE (03:21)
[2020-05-28] MEDS: METHADONE 160 MG, METHADONE 30 MG PO SCH (06:12)
[2020-05-28] MEDS ORDERED: CLOTRIMAZOLE 1% CREAM 15 GM TUBE TP SCH (10:00)
[2020-05-28] MEDS: hydrOXYzine PAMOATE 25 MG CAPSULE (FP) PO PRN (10:08)
[2020-05-28] MEDS: CITALOPRAM HYDROBROMIDE 20 MG TABLET PO SCH (10:08)
[2020-05-28] MEDS: PRENATAL VITAMINS W/ FOLIC ACID TABLET (FP) PO SCH (10:08)
[2020-05-28] MEDS: risperiDONE 1 MG TABLET PO SCH ×2 (10:08→21:43)
[2020-05-28] MEDS: NICOTINE 14 MG/24 HOURS TOPICAL PATCH TD SCH (10:08)
[2020-05-28] MEDS: TOLNAFTATE 1% CREAM 15 GM TUBE TP SCH ×2 (10:08→21:44)
[2020-05-28] MEDS: MELATONIN 5 MG TABLETS PO SCH (21:42)
[2020-05-28] MEDS: THIAMINE HCL 100 MG TABLET (FP) PO SCH (21:42)
[2020-05-28] MEDS: DOCUSATE SODIUM 100 MG CAPSULE (FP) PO SCH (21:43)
[2020-05-28] MEDS: traZODone HCL 100 MG TABLET (FP) PO SCH (21:43)
[2020-05-28] MEDS: CLOTRIMAZOLE 1% CREAM 15 GM TUBE TP SCH (21:44)
[2020-05-29] MEDS ORDERED: METHADONE HCL 10 MG TABLET ONE (03:49)
[2020-05-29] MEDS ORDERED: METHADONE HCL 40 MG DISPERSABLE TABLET ONE (03:49)
[2020-05-29] MEDS: METHADONE 160 MG, METHADONE 30 MG PO SCH (05:58)
[2020-05-29] MEDS: CITALOPRAM HYDROBROMIDE 20 MG TABLET PO SCH (10:31)
[2020-05-29] MEDS: NICOTINE 14 MG/24 HOURS TOPICAL PATCH TD SCH (10:32)
[2020-05-29] MEDS: risperiDONE 1 MG TABLET PO SCH ×2 (10:32→21:29)
[2020-05-29] MEDS: TOLNAFTATE 1% CREAM 15 GM TUBE TP SCH ×2 (10:32→21:30)
[2020-05-29] MEDS: PRENATAL VITAMINS W/ FOLIC ACID TABLET (FP) PO SCH (10:32)
[2020-05-29] MEDS: hydrOXYzine PAMOATE 25 MG CAPSULE (FP) PO PRN (10:33)
[2020-05-29] MEDS: CLOTRIMAZOLE 1% CREAM 15 GM TUBE TP SCH ×2 (10:38→21:30)
[2020-05-29] MEDS: FERROUS SO4 325 MG TABLET (FP) PO SCH (10:38)
[2020-05-29] MEDS: DOCUSATE SODIUM 100 MG CAPSULE (FP) PO SCH (21:29)
[2020-05-29] MEDS: THIAMINE HCL 100 MG TABLET (FP) PO SCH (21:29)
[2020-05-29] MEDS: MELATONIN 5 MG TABLETS PO SCH (21:29)
[2020-05-29] MEDS: traZODone HCL 100 MG TABLET (FP) PO SCH (21:29)
[2020-05-30] MEDS ORDERED: METHADONE HCL 40 MG DISPERSABLE TABLET ONE (05:45)
[2020-05-30] MEDS ORDERED: METHADONE HCL 10 MG TABLET ONE (05:46)
[2020-05-30] MEDS: METHADONE 160 MG, METHADONE 30 MG PO SCH (06:19)
[2020-05-30] MEDS ORDERED: PT OWN MED DRAWER 7, Y5N ONE (09:08)
[2020-05-30] MEDS: risperiDONE 1 MG TABLET PO SCH ×2 (10:11→21:13)
[2020-05-30] MEDS: FERROUS SO4 325 MG TABLET (FP) PO SCH (10:11)
[2020-05-30] MEDS: CITALOPRAM HYDROBROMIDE 20 MG TABLET PO SCH (10:11)
[2020-05-30] MEDS: PRENATAL VITAMINS W/ FOLIC ACID TABLET (FP) PO SCH (10:12)
[2020-05-30] MEDS: NICOTINE 14 MG/24 HOURS TOPICAL PATCH TD SCH (10:12)
[2020-05-30] MEDS: CLOTRIMAZOLE 1% CREAM 15 GM TUBE TP SCH ×2 (10:12→21:14)
[2020-05-30] MEDS ORDERED: ARTIFICIAL TEARS (POLYVINYL ALCOHOL) OPTH DROPS OU PRN (10:21)
[2020-05-30] MEDS: TOLNAFTATE 1% CREAM 15 GM TUBE TP SCH ×2 (11:00→21:14)
[2020-05-30 12:11] LABS: POTASSIUM 4.6 mmol/L (3.5-5.1)
[2020-05-30 12:13] LABS: CALCIUM 8.9 mg/dL (8.5-10.1)
[2020-05-30 12:15] LABS: BLOOD UREA NITROGEN 20.9 mg/dL (7-18)
[2020-05-30 12:21] LABS: BASO % 1.1 % (0-2.0); EOS % 4.4 % (0-4.5); HEMATOCRIT 34.4 % (35.4-49); HEMOGLOBIN 10.8 GM/dL (11.7-16.9); LYMPH % 36.3 % (8-40); MCH 22.4 pg (25.7-33.7); MCHC 31.4 g/dl (32.0-35.9); MEAN CELL VOLUME 71.6 fl (80-96); MEAN PLT VOLUME 9.5 fl (7.5-11.1); MONO % 17.4 % (3.8-10.2); NEUT % 40.8 % (42.8-82.8); PLATELET COUNT 195 K/MM3 (134-434); RBC 4.81 M/mm3 (4.00-5.60); RDW 16.3 % (11.9-15.9); WHITE BLOOD COUNT 4.2 K/mm3 (4.0-10.0)
[2020-05-30] MEDS: DOCUSATE SODIUM 100 MG CAPSULE (FP) PO SCH (21:13)
[2020-05-30] MEDS: THIAMINE HCL 100 MG TABLET (FP) PO SCH (21:13)
[2020-05-30] MEDS: traZODone HCL 100 MG TABLET (FP) PO SCH (21:13)
[2020-05-30] MEDS: MELATONIN 5 MG TABLETS PO SCH (21:13)
[2020-05-31] MEDS ORDERED: METHADONE HCL 40 MG DISPERSABLE TABLET ONE (03:47)
[2020-05-31] MEDS ORDERED: METHADONE HCL 10 MG TABLET ONE (03:48)
[2020-05-31] MEDS: METHADONE 160 MG, METHADONE 30 MG PO SCH (07:00)
[2020-05-31] MEDS: risperiDONE 1 MG TABLET PO SCH ×2 (09:18→21:36)
[2020-05-31] MEDS: CITALOPRAM HYDROBROMIDE 20 MG TABLET PO SCH (09:18)
[2020-05-31] MEDS: FERROUS SO4 325 MG TABLET (FP) PO SCH (09:18)
[2020-05-31] MEDS: NICOTINE 14 MG/24 HOURS TOPICAL PATCH TD SCH (09:18)
[2020-05-31] MEDS: hydrOXYzine PAMOATE 25 MG CAPSULE (FP) PO PRN (09:19)
[2020-05-31] MEDS: PRENATAL VITAMINS W/ FOLIC ACID TABLET (FP) PO SCH (09:19)
[2020-05-31] MEDS: CLOTRIMAZOLE 1% CREAM 15 GM TUBE TP SCH ×2 (09:20→21:37)
[2020-05-31] MEDS: TOLNAFTATE 1% CREAM 15 GM TUBE TP SCH ×2 (09:20→21:37)
[2020-05-31] MEDS: THIAMINE HCL 100 MG TABLET (FP) PO SCH (21:36)
[2020-05-31] MEDS: DOCUSATE SODIUM 100 MG CAPSULE (FP) PO SCH (21:36)
[2020-05-31] MEDS: traZODone HCL 100 MG TABLET (FP) PO SCH (21:36)
[2020-05-31] MEDS: MELATONIN 5 MG TABLETS PO SCH (21:36)
[2020-06-01] MEDS ORDERED: METHADONE HCL 40 MG DISPERSABLE TABLET ONE (05:06)
[2020-06-01] MEDS ORDERED: METHADONE HCL 10 MG TABLET ONE (05:07)
[2020-06-01] MEDS: METHADONE 160 MG, METHADONE 30 MG PO SCH (06:12)
[2020-06-01 07:48] VITALS: BP 111/70; PULSE 67; TEMP 97.3
[2020-06-01] MEDS: CITALOPRAM HYDROBROMIDE 20 MG TABLET PO SCH (09:25)
[2020-06-01] MEDS: PRENATAL VITAMINS W/ FOLIC ACID TABLET (FP) PO SCH (09:25)
[2020-06-01] MEDS: risperiDONE 1 MG TABLET PO SCH (09:25)
[2020-06-01] MEDS: FERROUS SO4 325 MG TABLET (FP) PO SCH (09:25)
[2020-06-01] MEDS: TOLNAFTATE 1% CREAM 15 GM TUBE TP SCH (09:26)
[2020-06-01] MEDS: hydrOXYzine PAMOATE 25 MG CAPSULE (FP) PO PRN (09:27)
== END 2020-06-01 09:36 | disposition home or self-care (01) | DRG 772 ==
LOC: YASAS 13:59 → Y3W 14:00
PROVIDERS: ADMIT Allergy & Immunology; ATTEND Allergy & Immunology
PROC: HZ42ZZZ Group Counseling for Substance Abuse Treatment, Cognitive-Behavioral (ICD-10-PCS; principal; 2020-05-16)
DX: F10.20 Alcohol dependence, uncomplicated (principal); F11.20 Opioid dependence, uncomplicated; F14.20 Cocaine dependence, uncomplicated; F17.210 Nicotine dependence, cigarettes, uncomplicated; K59.00 Constipation, unspecified; D50.9 Iron deficiency anemia, unspecified
CPT/HCPCS: 36415; 80048; 84450; 84460; 85025; J2794

== ENCOUNTER 2020-07-25 11:41 | Inpatient (IN) | payer OTHER ==
[2020-07-25 13:25] VITALS: BMI 20.7
[2020-07-25] MEDS ORDERED: ACETAMINOPHEN 325 MG TABLET (FP) PO PRN ×2 (13:56)
[2020-07-25] MEDS ORDERED: MAG HYDROX/AL HYDROX/SIMETH 30 ML UNIT-DOSE CUP PO PRN (13:56)
[2020-07-25] MEDS ORDERED: MENTHOL/PHENOL 1 EACH UD MM PRN (13:56)
[2020-07-25] MEDS ORDERED: BISMUTH SUBSALICYLATE 524 MG/30 ML UD PO PRN (13:56)
[2020-07-25] MEDS ORDERED: MAGNESIUM CITRATE 300 ML BOTTLE PO PRN (13:56)
[2020-07-25] MEDS ORDERED: ONDANSETRON *ODT* 4 MG TABLET SL PRN (13:56)
[2020-07-25] MEDS ORDERED: NICOTINE POLACRILEX 2 MG GUM BUC PRN (13:56)
[2020-07-25] MEDS ORDERED: IBUPROFEN 400 MG TABLET (FP) PO PRN (13:56)
[2020-07-25] MEDS ORDERED: MAGNESIUM HYDROX 2400MG/30ML ORAL SUSPENSION 30 ML CUP PO PRN (13:56)
[2020-07-25] MEDS: hydrOXYzine PAMOATE 25 MG CAPSULE (FP) PO SCH ×3 (15:00→22:29)
[2020-07-25] MEDS: diazePAM 5 MG TABLET PO PRN (15:00)
[2020-07-25] MEDS: diazePAM 5 MG TABLET PO SCH ×2 (17:30→22:28)
[2020-07-25] MEDS: MELATONIN 5 MG TABLETS PO SCH (22:27)
[2020-07-25] MEDS: METHOCARBAMOL 500 MG TABLET PO PRN (22:27)
[2020-07-25] MEDS: THIAMINE HCL 100 MG TABLET (FP) PO SCH (22:31)
[2020-07-26] MEDS: diazePAM 5 MG TABLET PO SCH ×4 (05:18→22:19)
[2020-07-26] MEDS: hydrOXYzine PAMOATE 25 MG CAPSULE (FP) PO SCH ×5 (05:19→22:18)
[2020-07-26 09:58] LABS: POTASSIUM 4.8 mmol/L (3.5-5.1)
[2020-07-26 10:04] LABS: HEMATOCRIT 36.1 % (35.4-49); HEMOGLOBIN 11.7 GM/dL (11.7-16.9); MCHC 32.4 g/dl (32.0-35.9); MEAN CELL VOLUME 71.1 fl (80-96); MEAN PLT VOLUME 8.8 fl (7.5-11.1); PLATELET COUNT 189 K/MM3 (134-434); RBC 5.08 M/mm3 (4.00-5.60); RDW 16.6 % (11.9-15.9); WHITE BLOOD COUNT 3.3 K/mm3 (4.0-10.0)
[2020-07-26 10:06] LABS: ALBUMIN 3.6 g/dl (3.4-5.0); BLOOD UREA NITROGEN 8.4 mg/dL (7-18); CREATININE 0.9 mg/dL (0.55-1.3)
[2020-07-26 10:08] LABS: BILIRUBIN,TOTAL 1.4 mg/dL (0.2-1)
[2020-07-26] MEDS: PRENATAL VITAMINS W/ FOLIC ACID TABLET (FP) PO SCH (10:36)
[2020-07-26 10:59] LABS: HIV INTERPRETATION NEGATIVE (NEGATIVE)
[2020-07-26] MEDS: diazePAM 5 MG TABLET PO PRN (13:12)
[2020-07-26] MEDS: MELATONIN 5 MG TABLETS PO SCH (22:18)
[2020-07-26] MEDS: THIAMINE HCL 100 MG TABLET (FP) PO SCH (22:18)
[2020-07-26] MEDS: risperiDONE 1 MG TABLET PO SCH (22:18)
[2020-07-26] MEDS: traZODone HCL 100 MG TABLET (FP) PO SCH (22:18)
[2020-07-27] MEDS: diazePAM 5 MG TABLET PO SCH ×3 (05:42→22:16)
[2020-07-27] MEDS: METHOCARBAMOL 500 MG TABLET PO PRN (05:43)
[2020-07-27] MEDS: hydrOXYzine PAMOATE 25 MG CAPSULE (FP) PO SCH ×5 (05:43→22:15)
[2020-07-27] MEDS ORDERED: METHADONE 160 MG, METHADONE 30 MG PO ONE (09:15)
[2020-07-27] MEDS ORDERED: METHADONE HCL 10 MG TABLET PO SCH (09:15)
[2020-07-27] MEDS ORDERED: METHADONE HCL 10 MG TABLET ONE (09:33)
[2020-07-27] MEDS ORDERED: METHADONE HCL 40 MG DISPERSABLE TABLET ONE (09:34)
[2020-07-27] MEDS: risperiDONE 1 MG TABLET PO SCH ×2 (09:42→22:15)
[2020-07-27] MEDS: CITALOPRAM HYDROBROMIDE 20 MG TABLET PO SCH (09:42)
[2020-07-27] MEDS: PRENATAL VITAMINS W/ FOLIC ACID TABLET (FP) PO SCH (09:42)
[2020-07-27] MEDS ORDERED: FLU VACCINE (FLULAVAL) PF 60 MCG/0.5 ML SYRINGE 2020-2021 IM ONE (12:00)
[2020-07-27] MEDS: diazePAM 5 MG TABLET PO PRN (17:45)
[2020-07-27] MEDS: traZODone HCL 100 MG TABLET (FP) PO SCH (22:15)
[2020-07-27] MEDS: CLOTRIMAZOLE/BETAMET DIPROP 15 GM TUBE TP SCH (22:15)
[2020-07-27] MEDS: THIAMINE HCL 100 MG TABLET (FP) PO SCH (22:15)
[2020-07-27] MEDS: MELATONIN 5 MG TABLETS PO SCH (22:16)
[2020-07-28] MEDS ORDERED: METHADONE HCL 10 MG TABLET ONE (04:38)
[2020-07-28] MEDS ORDERED: METHADONE HCL 40 MG DISPERSABLE TABLET ONE (04:39)
[2020-07-28] MEDS: hydrOXYzine PAMOATE 25 MG CAPSULE (FP) PO SCH ×2 (05:30→10:18)
[2020-07-28] MEDS: METHADONE 160 MG, METHADONE 30 MG PO SCH (05:30)
[2020-07-28] MEDS: diazePAM 5 MG TABLET PO SCH ×2 (05:30→17:37)
[2020-07-28] MEDS: diazePAM 5 MG TABLET PO PRN (10:17)
[2020-07-28] MEDS: PRENATAL VITAMINS W/ FOLIC ACID TABLET (FP) PO SCH (10:17)
[2020-07-28] MEDS: risperiDONE 1 MG TABLET PO SCH ×2 (10:17→22:24)
[2020-07-28] MEDS: CITALOPRAM HYDROBROMIDE 20 MG TABLET PO SCH (10:17)
[2020-07-28] MEDS: CLOTRIMAZOLE/BETAMET DIPROP 15 GM TUBE TP SCH ×2 (10:18→22:25)
[2020-07-28] MEDS ORDERED: hydrOXYzine PAMOATE 25 MG CAPSULE (FP) PO PRN (10:20)
[2020-07-28] MEDS: traZODone HCL 100 MG TABLET (FP) PO SCH (22:24)
[2020-07-28] MEDS: THIAMINE HCL 100 MG TABLET (FP) PO SCH (22:24)
[2020-07-28] MEDS: MELATONIN 5 MG TABLETS PO SCH (22:25)
[2020-07-28] MEDS ORDERED: LIDOCAINE VISCOUS 2% ORAL/TOP 20 ML UNIT-DOSE CUP MM PRN (23:42)
[2020-07-29] MEDS ORDERED: METHADONE HCL 10 MG TABLET ONE (05:02)
[2020-07-29] MEDS ORDERED: METHADONE HCL 40 MG DISPERSABLE TABLET ONE (05:02)
[2020-07-29] MEDS: METHADONE 160 MG, METHADONE 30 MG PO SCH (05:26)
[2020-07-29] MEDS ORDERED: diazePAM 5 MG TABLET PO ONE (06:00)
[2020-07-29] MEDS: risperiDONE 1 MG TABLET PO SCH ×2 (10:13→22:23)
[2020-07-29] MEDS: CITALOPRAM HYDROBROMIDE 20 MG TABLET PO SCH (10:13)
[2020-07-29] MEDS: CLOTRIMAZOLE/BETAMET DIPROP 15 GM TUBE TP SCH ×2 (10:13→22:23)
[2020-07-29] MEDS: PRENATAL VITAMINS W/ FOLIC ACID TABLET (FP) PO SCH (10:13)
[2020-07-29] MEDS: METHOCARBAMOL 500 MG TABLET PO PRN (10:14)
[2020-07-29] MEDS: THIAMINE HCL 100 MG TABLET (FP) PO SCH (22:23)
[2020-07-29] MEDS: traZODone HCL 100 MG TABLET (FP) PO SCH (22:23)
[2020-07-30] MEDS ORDERED: METHADONE HCL 10 MG TABLET ONE (04:14)
[2020-07-30] MEDS ORDERED: METHADONE HCL 40 MG DISPERSABLE TABLET ONE (04:14)
[2020-07-30] MEDS: METHADONE 160 MG, METHADONE 30 MG PO SCH (05:45)
[2020-07-30 09:48] VITALS: BP 92/61; PULSE 72; TEMP 97.3
[2020-07-30] MEDS: CLOTRIMAZOLE/BETAMET DIPROP 15 GM TUBE TP SCH (10:18)
[2020-07-30] MEDS: risperiDONE 1 MG TABLET PO SCH (10:18)
== END 2020-07-30 11:23 | disposition other institution (70) | DRG 773 ==
LOC: YASAS 11:41 → Y6N 12:54 → Y3N 13:03
PROVIDERS: ADMIT Allergy & Immunology; ATTEND Allergy & Immunology
PROC: HZ2ZZZZ Detoxification Services for Substance Abuse Treatment (ICD-10-PCS; principal; 2020-07-25)
DX: F10.230 Alcohol dependence with withdrawal, uncomplicated (principal); F11.20 Opioid dependence, uncomplicated; F14.20 Cocaine dependence, uncomplicated; F17.210 Nicotine dependence, cigarettes, uncomplicated; F19.282 Other psychoactive substance dependence with psychoactive substance-induced sleep disorder; F39 Unspecified mood [affective] disorder; F19.24 Other psychoactive substance dependence with psychoactive substance-induced mood disorder; F31.9 Bipolar disorder, unspecified; F41.1 Generalized anxiety disorder; D50.9 Iron deficiency anemia, unspecified; K08.89 Other specified disorders of teeth and supporting structures; Z62.810 Personal history of physical and sexual abuse in childhood; R74.01 Elevation of levels of liver transaminase levels; Z87.19 Personal history of other diseases of the digestive system; Z87.81 Personal history of (healed) traumatic fracture
CPT/HCPCS: 36415; 80053; 85027; 86780; 87389; C9803; J2794; Q0162; U0003

== ENCOUNTER 2020-07-30 11:27 | Inpatient (IN) | payer OTHER ==
[~2020-07-30 11:27] MED LIST changes: -BENZOCAINE 20 % GEL TUBE MM PRN; +CITALOPRAM HYDROBROMIDE 20 MG TABLET PO SCH; +CLOTRIMAZOLE 1% CREAM 15 GM TUBE TP SCH; +LIDOCAINE VISCOUS 2% ORAL/TOP 100 ML BOTTLE MM PRN; +MELATONIN 5 MG TABLETS PO SCH; -MENTHOL/PHENOL 1 EACH UD MM PRN; +METHADONE HCL 40 MG DISPERSABLE TABLET PO SCH; +NICOTINE 7 MG/24 HOURS TOPICAL PATCH TD SCH; +NICOTINE POLACRILEX 2 MG GUM BC PRN; +PRENATAL VITAMINS W/ FOLIC ACID TABLET (FP) PO SCH; -TETRAHYDROZOLINE HCL EYE DROPS OU PRN; +THIAMINE HCL 100 MG TABLET (FP) PO SCH; +risperiDONE 1 MG TABLET PO SCH; +traZODone HCL 150 MG TABLET PO SCH
[2020-07-30] MEDS ORDERED: LOPERAMIDE HCL 2 MG CAPSULE PO PRN (13:23)
[2020-07-30] MEDS ORDERED: MAGNESIUM HYDROX 2400MG/30ML ORAL SUSPENSION 30 ML CUP PO PRN (13:23)
[2020-07-30] MEDS ORDERED: guaiFENesin 200 MG/10 ML 10 ML UNIT-DOSE CUPS PO PRN (13:23)
[2020-07-30] MEDS ORDERED: MAGNESIUM CITRATE 300 ML BOTTLE PO PRN (13:23)
[2020-07-30] MEDS ORDERED: P-EPHED 60MG/TRIPROLIDI 2.5MG TABLET PO PRN (13:23)
[2020-07-30] MEDS ORDERED: MAG HYDROX/AL HYDROX/SIMETH 30 ML UNIT-DOSE CUP PO PRN (13:23)
[2020-07-30] MEDS ORDERED: MENTHOL/PHENOL 1 EACH UD MM PRN (13:23)
[2020-07-30] MEDS ORDERED: ACETAMINOPHEN 325 MG TABLET (FP) PO PRN (13:23)
[2020-07-30] MEDS ORDERED: NICOTINE POLACRILEX 2 MG GUM BUC PRN (13:23)
[2020-07-30] MEDS: DOCUSATE SODIUM 100 MG CAPSULE (FP) PO SCH ×2 (15:43→21:17)
[2020-07-30] MEDS: MELATONIN 5 MG TABLETS PO SCH (21:16)
[2020-07-30] MEDS: CLOTRIMAZOLE/BETAMET DIPROP TOPICAL CREAM 45 GM TUBE TP SCH (21:16)
[2020-07-30] MEDS: traZODone HCL 100 MG TABLET (FP) PO SCH (21:16)
[2020-07-30] MEDS: hydrOXYzine PAMOATE 25 MG CAPSULE (FP) PO PRN (21:18)
[2020-07-30] MEDS: THIAMINE HCL 100 MG TABLET (FP) PO SCH (21:18)
[2020-07-30] MEDS: risperiDONE 1 MG TABLET PO SCH (21:18)
[2020-07-31] MEDS ORDERED: METHADONE HCL 40 MG DISPERSABLE TABLET ONE (05:48)
[2020-07-31] MEDS ORDERED: METHADONE HCL 10 MG TABLET ONE (05:49)
[2020-07-31] MEDS ORDERED: METHADONE HCL 10 MG TABLET PO SCH (06:00)
[2020-07-31] MEDS: METHADONE 160 MG, METHADONE 30 MG PO SCH (07:05)
[2020-07-31] MEDS: DOCUSATE SODIUM 100 MG CAPSULE (FP) PO SCH (07:05)
[2020-07-31] MEDS: CITALOPRAM HYDROBROMIDE 20 MG TABLET PO SCH (09:45)
[2020-07-31] MEDS: risperiDONE 1 MG TABLET PO SCH ×2 (09:45→21:35)
[2020-07-31] MEDS: PRENATAL VITAMINS W/ FOLIC ACID TABLET (FP) PO SCH (09:45)
[2020-07-31] MEDS: hydrOXYzine PAMOATE 25 MG CAPSULE (FP) PO PRN (09:45)
[2020-07-31] MEDS ORDERED: SODIUM PHOSPHATE/NA BIPHOS 133 ML ENEMA RC ONE (10:15)
[2020-07-31] MEDS: NICOTINE 7 MG/24 HOURS TOPICAL PATCH TD SCH (10:43)
[2020-07-31] MEDS ORDERED: PT OWN MED DRAWER 7, Y5N ONE (10:44)
[2020-07-31] MEDS: PSYLLIUM 5.85 GM PACKET PO SCH ×2 (10:44→21:37)
[2020-07-31] MEDS: CLOTRIMAZOLE/BETAMET DIPROP TOPICAL CREAM 45 GM TUBE TP SCH ×2 (10:45→21:37)
[2020-07-31] MEDS ORDERED: FLU VACCINE (FLULAVAL) PF 60 MCG/0.5 ML SYRINGE 2020-2021 IM ONE (12:00)
[2020-07-31] MEDS: traZODone HCL 100 MG TABLET (FP) PO SCH (21:35)
[2020-07-31] MEDS: MELATONIN 5 MG TABLETS PO SCH (21:35)
[2020-07-31] MEDS: cloNIDine HCL 0.1 MG TABLET PO PRN (21:36)
[2020-07-31] MEDS: THIAMINE HCL 100 MG TABLET (FP) PO SCH (21:37)
[2020-08-01] MEDS ORDERED: METHADONE HCL 40 MG DISPERSABLE TABLET ONE (04:05)
[2020-08-01] MEDS ORDERED: METHADONE HCL 10 MG TABLET ONE (04:06)
[2020-08-01] MEDS: METHADONE 160 MG, METHADONE 30 MG PO SCH (05:58)
[2020-08-01] MEDS: CLOTRIMAZOLE/BETAMET DIPROP TOPICAL CREAM 45 GM TUBE TP SCH ×2 (09:49→21:19)
[2020-08-01] MEDS: risperiDONE 1 MG TABLET PO SCH ×2 (09:49→21:17)
[2020-08-01] MEDS: PRENATAL VITAMINS W/ FOLIC ACID TABLET (FP) PO SCH (09:49)
[2020-08-01] MEDS: CITALOPRAM HYDROBROMIDE 20 MG TABLET PO SCH (09:49)
[2020-08-01] MEDS: PSYLLIUM 5.85 GM PACKET PO SCH ×2 (09:49→21:17)
[2020-08-01] MEDS: NICOTINE 7 MG/24 HOURS TOPICAL PATCH TD SCH (09:50)
[2020-08-01] MEDS: hydrOXYzine PAMOATE 25 MG CAPSULE (FP) PO PRN (18:28)
[2020-08-01] MEDS: traZODone HCL 100 MG TABLET (FP) PO SCH (21:16)
[2020-08-01] MEDS: cloNIDine HCL 0.1 MG TABLET PO PRN (21:17)
[2020-08-01] MEDS: MELATONIN 5 MG TABLETS PO SCH (21:17)
[2020-08-01] MEDS: THIAMINE HCL 100 MG TABLET (FP) PO SCH (21:17)
[2020-08-02] MEDS ORDERED: METHADONE HCL 40 MG DISPERSABLE TABLET ONE (04:10)
[2020-08-02] MEDS ORDERED: METHADONE HCL 10 MG TABLET ONE (04:11)
[2020-08-02] MEDS: IBUPROFEN 400 MG TABLET (FP) PO PRN ×2 (06:13→19:18)
[2020-08-02] MEDS: METHADONE 160 MG, METHADONE 30 MG PO SCH (06:13)
[2020-08-02] MEDS: PRENATAL VITAMINS W/ FOLIC ACID TABLET (FP) PO SCH (09:45)
[2020-08-02] MEDS: CLOTRIMAZOLE/BETAMET DIPROP TOPICAL CREAM 45 GM TUBE TP SCH ×2 (09:46→21:36)
[2020-08-02] MEDS: risperiDONE 1 MG TABLET PO SCH ×2 (09:46→21:35)
[2020-08-02] MEDS: COLLOIDAL OATMEAL 1 BAR EACH TP PRN (09:46)
[2020-08-02] MEDS: CITALOPRAM HYDROBROMIDE 20 MG TABLET PO SCH (09:46)
[2020-08-02] MEDS: PSYLLIUM 5.85 GM PACKET PO SCH ×2 (09:46→21:35)
[2020-08-02] MEDS: NICOTINE 7 MG/24 HOURS TOPICAL PATCH TD SCH (09:48)
[2020-08-02] MEDS: MELATONIN 5 MG TABLETS PO SCH (21:33)
[2020-08-02] MEDS: THIAMINE HCL 100 MG TABLET (FP) PO SCH (21:33)
[2020-08-02] MEDS: traZODone HCL 100 MG TABLET (FP) PO SCH (21:33)
[2020-08-02] MEDS: hydrOXYzine PAMOATE 25 MG CAPSULE (FP) PO PRN (21:34)
[2020-08-03] MEDS ORDERED: METHADONE HCL 40 MG DISPERSABLE TABLET ONE (03:11)
[2020-08-03] MEDS ORDERED: METHADONE HCL 10 MG TABLET ONE (03:12)
[2020-08-03] MEDS: METHADONE 160 MG, METHADONE 30 MG PO SCH (05:49)
[2020-08-03] MEDS: PRENATAL VITAMINS W/ FOLIC ACID TABLET (FP) PO SCH (09:39)
[2020-08-03] MEDS: hydrOXYzine PAMOATE 25 MG CAPSULE (FP) PO PRN (09:40)
[2020-08-03] MEDS: risperiDONE 1 MG TABLET PO SCH ×2 (09:40→21:15)
[2020-08-03] MEDS: CLOTRIMAZOLE/BETAMET DIPROP TOPICAL CREAM 45 GM TUBE TP SCH ×2 (09:40→21:16)
[2020-08-03] MEDS: CITALOPRAM HYDROBROMIDE 20 MG TABLET PO SCH (09:40)
[2020-08-03] MEDS: PSYLLIUM 5.85 GM PACKET PO SCH ×2 (09:41→21:15)
[2020-08-03] MEDS: NICOTINE 7 MG/24 HOURS TOPICAL PATCH TD SCH (09:45)
[2020-08-03] MEDS: traZODone HCL 100 MG TABLET (FP) PO SCH (21:15)
[2020-08-03] MEDS: THIAMINE HCL 100 MG TABLET (FP) PO SCH (21:15)
[2020-08-03] MEDS: MELATONIN 5 MG TABLETS PO SCH (21:15)
[2020-08-03] MEDS: cloNIDine HCL 0.1 MG TABLET PO PRN (21:17)
[2020-08-04] MEDS ORDERED: METHADONE HCL 10 MG TABLET ONE (03:08)
[2020-08-04] MEDS ORDERED: METHADONE HCL 40 MG DISPERSABLE TABLET ONE (03:08)
[2020-08-04] MEDS: METHADONE 160 MG, METHADONE 30 MG PO SCH (06:39)
[2020-08-04] MEDS: CITALOPRAM HYDROBROMIDE 20 MG TABLET PO SCH (10:12)
[2020-08-04] MEDS: risperiDONE 1 MG TABLET PO SCH ×2 (10:12→21:21)
[2020-08-04] MEDS: NICOTINE 7 MG/24 HOURS TOPICAL PATCH TD SCH (10:12)
[2020-08-04] MEDS: PSYLLIUM 5.85 GM PACKET PO SCH ×2 (10:12→21:20)
[2020-08-04] MEDS: PRENATAL VITAMINS W/ FOLIC ACID TABLET (FP) PO SCH (10:12)
[2020-08-04] MEDS: CLOTRIMAZOLE/BETAMET DIPROP TOPICAL CREAM 45 GM TUBE TP SCH ×2 (10:12→21:22)
[2020-08-04] MEDS: THIAMINE HCL 100 MG TABLET (FP) PO SCH (21:21)
[2020-08-04] MEDS: traZODone HCL 100 MG TABLET (FP) PO SCH (21:21)
[2020-08-04] MEDS: MELATONIN 5 MG TABLETS PO SCH (21:21)
[2020-08-05] MEDS ORDERED: METHADONE HCL 40 MG DISPERSABLE TABLET ONE (03:13)
[2020-08-05] MEDS ORDERED: METHADONE HCL 10 MG TABLET ONE (03:13)
[2020-08-05] MEDS: METHADONE 160 MG, METHADONE 30 MG PO SCH (06:12)
[2020-08-05] MEDS: CLOTRIMAZOLE/BETAMET DIPROP TOPICAL CREAM 45 GM TUBE TP SCH ×2 (09:45→21:21)
[2020-08-05] MEDS: PRENATAL VITAMINS W/ FOLIC ACID TABLET (FP) PO SCH (09:45)
[2020-08-05] MEDS: risperiDONE 1 MG TABLET PO SCH ×2 (09:45→21:21)
[2020-08-05] MEDS: CITALOPRAM HYDROBROMIDE 20 MG TABLET PO SCH (09:45)
[2020-08-05] MEDS: NICOTINE 7 MG/24 HOURS TOPICAL PATCH TD SCH (09:46)
[2020-08-05] MEDS: PSYLLIUM 5.85 GM PACKET PO SCH ×2 (09:46→21:22)
[2020-08-05] MEDS: traZODone HCL 100 MG TABLET (FP) PO SCH (21:20)
[2020-08-05] MEDS: MELATONIN 5 MG TABLETS PO SCH (21:21)
[2020-08-05] MEDS: THIAMINE HCL 100 MG TABLET (FP) PO SCH (21:21)
[2020-08-06] MEDS ORDERED: METHADONE HCL 40 MG DISPERSABLE TABLET ONE (05:41)
[2020-08-06] MEDS ORDERED: METHADONE HCL 10 MG TABLET ONE (05:42)
[2020-08-06] MEDS: METHADONE 160 MG, METHADONE 30 MG PO SCH (06:05)
[2020-08-06] MEDS: risperiDONE 1 MG TABLET PO SCH ×2 (10:05→21:25)
[2020-08-06] MEDS: NICOTINE 7 MG/24 HOURS TOPICAL PATCH TD SCH (10:05)
[2020-08-06] MEDS: CITALOPRAM HYDROBROMIDE 20 MG TABLET PO SCH (10:05)
[2020-08-06] MEDS: hydrOXYzine PAMOATE 25 MG CAPSULE (FP) PO PRN (10:05)
[2020-08-06] MEDS: PRENATAL VITAMINS W/ FOLIC ACID TABLET (FP) PO SCH (10:05)
[2020-08-06] MEDS: PSYLLIUM 5.85 GM PACKET PO SCH ×2 (10:06→21:26)
[2020-08-06] MEDS: CLOTRIMAZOLE/BETAMET DIPROP TOPICAL CREAM 45 GM TUBE TP SCH ×2 (10:07→21:27)
[2020-08-06] MEDS: traZODone HCL 100 MG TABLET (FP) PO SCH (21:25)
[2020-08-06] MEDS: THIAMINE HCL 100 MG TABLET (FP) PO SCH (21:26)
[2020-08-06] MEDS: MELATONIN 5 MG TABLETS PO SCH (21:26)
[2020-08-07] MEDS ORDERED: METHADONE HCL 10 MG TABLET ONE (04:14)
[2020-08-07] MEDS ORDERED: METHADONE HCL 40 MG DISPERSABLE TABLET ONE (04:14)
[2020-08-07] MEDS: METHADONE 160 MG, METHADONE 30 MG PO SCH (06:29)
[2020-08-07] MEDS: CLOTRIMAZOLE/BETAMET DIPROP TOPICAL CREAM 45 GM TUBE TP SCH ×2 (10:01→21:07)
[2020-08-07] MEDS: NICOTINE 7 MG/24 HOURS TOPICAL PATCH TD SCH (10:01)
[2020-08-07] MEDS: PRENATAL VITAMINS W/ FOLIC ACID TABLET (FP) PO SCH (10:02)
[2020-08-07] MEDS: risperiDONE 1 MG TABLET PO SCH ×2 (10:02→21:06)
[2020-08-07] MEDS: PSYLLIUM 5.85 GM PACKET PO SCH ×2 (10:02→21:06)
[2020-08-07] MEDS: CITALOPRAM HYDROBROMIDE 20 MG TABLET PO SCH (10:02)
[2020-08-07] MEDS: hydrOXYzine PAMOATE 25 MG CAPSULE (FP) PO PRN (10:03)
[2020-08-07] MEDS: THIAMINE HCL 100 MG TABLET (FP) PO SCH (21:06)
[2020-08-07] MEDS: MELATONIN 5 MG TABLETS PO SCH (21:06)
[2020-08-07] MEDS: traZODone HCL 100 MG TABLET (FP) PO SCH (21:06)
[2020-08-08] MEDS ORDERED: METHADONE HCL 40 MG DISPERSABLE TABLET ONE (03:05)
[2020-08-08] MEDS ORDERED: METHADONE HCL 10 MG TABLET ONE (03:05)
[2020-08-08] MEDS: METHADONE 160 MG, METHADONE 30 MG PO SCH (05:53)
[2020-08-08] MEDS: PSYLLIUM 5.85 GM PACKET PO SCH ×2 (09:38→21:24)
[2020-08-08] MEDS: PRENATAL VITAMINS W/ FOLIC ACID TABLET (FP) PO SCH (09:38)
[2020-08-08] MEDS: CITALOPRAM HYDROBROMIDE 20 MG TABLET PO SCH (09:38)
[2020-08-08] MEDS: risperiDONE 1 MG TABLET PO SCH ×2 (09:38→21:24)
[2020-08-08] MEDS: CLOTRIMAZOLE/BETAMET DIPROP TOPICAL CREAM 45 GM TUBE TP SCH ×2 (09:39→21:26)
[2020-08-08] MEDS: NICOTINE 7 MG/24 HOURS TOPICAL PATCH TD SCH (09:39)
[2020-08-08] MEDS: BENZOCAINE 20 % GEL TUBE MM PRN (15:53)
[2020-08-08] MEDS: IBUPROFEN 400 MG TABLET (FP) PO PRN (16:29)
[2020-08-08] MEDS: THIAMINE HCL 100 MG TABLET (FP) PO SCH (21:24)
[2020-08-08] MEDS: MELATONIN 5 MG TABLETS PO SCH (21:24)
[2020-08-08] MEDS: traZODone HCL 100 MG TABLET (FP) PO SCH (21:24)
[2020-08-08] MEDS: hydrOXYzine PAMOATE 25 MG CAPSULE (FP) PO PRN (21:25)
[2020-08-09] MEDS ORDERED: METHADONE HCL 40 MG DISPERSABLE TABLET ONE (03:23)
[2020-08-09] MEDS ORDERED: METHADONE HCL 10 MG TABLET ONE (03:24)
[2020-08-09] MEDS: IBUPROFEN 400 MG TABLET (FP) PO PRN ×3 (03:49→21:11)
[2020-08-09] MEDS: METHADONE 160 MG, METHADONE 30 MG PO SCH (06:01)
[2020-08-09] MEDS: PRENATAL VITAMINS W/ FOLIC ACID TABLET (FP) PO SCH (09:54)
[2020-08-09] MEDS: NICOTINE 7 MG/24 HOURS TOPICAL PATCH TD SCH (09:54)
[2020-08-09] MEDS: risperiDONE 1 MG TABLET PO SCH ×2 (09:54→21:09)
[2020-08-09] MEDS: CLOTRIMAZOLE/BETAMET DIPROP TOPICAL CREAM 45 GM TUBE TP SCH ×2 (09:54→21:12)
[2020-08-09] MEDS: CITALOPRAM HYDROBROMIDE 20 MG TABLET PO SCH (09:54)
[2020-08-09] MEDS: PSYLLIUM 5.85 GM PACKET PO SCH ×2 (09:54→21:10)
[2020-08-09] MEDS: traZODone HCL 100 MG TABLET (FP) PO SCH (21:09)
[2020-08-09] MEDS: MELATONIN 5 MG TABLETS PO SCH (21:10)
[2020-08-09] MEDS: THIAMINE HCL 100 MG TABLET (FP) PO SCH (21:10)
[2020-08-09] MEDS: BENZOCAINE 20 % GEL TUBE MM PRN (21:13)
[2020-08-10] MEDS ORDERED: METHADONE HCL 40 MG DISPERSABLE TABLET ONE (03:40)
[2020-08-10] MEDS ORDERED: METHADONE HCL 10 MG TABLET ONE (03:40)
[2020-08-10] MEDS: METHADONE 160 MG, METHADONE 30 MG PO SCH (06:29)
[2020-08-10] MEDS: hydrOXYzine PAMOATE 25 MG CAPSULE (FP) PO PRN (10:43)
[2020-08-10] MEDS: risperiDONE 1 MG TABLET PO SCH ×2 (10:43→21:30)
[2020-08-10] MEDS: PSYLLIUM 5.85 GM PACKET PO SCH ×2 (10:43→21:30)
[2020-08-10] MEDS: NICOTINE 7 MG/24 HOURS TOPICAL PATCH TD SCH (10:43)
[2020-08-10] MEDS: CITALOPRAM HYDROBROMIDE 20 MG TABLET PO SCH (10:43)
[2020-08-10] MEDS: PRENATAL VITAMINS W/ FOLIC ACID TABLET (FP) PO SCH (10:43)
[2020-08-10] MEDS: CLOTRIMAZOLE/BETAMET DIPROP TOPICAL CREAM 45 GM TUBE TP SCH ×2 (10:47→21:31)
[2020-08-10] MEDS: AMOXICILLIN 500 MG CAPSULE (FP) PO SCH (21:30)
[2020-08-10] MEDS: traZODone HCL 100 MG TABLET (FP) PO SCH (21:30)
[2020-08-10] MEDS: TOLNAFTATE 1% CREAM 15 GM TUBE TP SCH (21:31)
[2020-08-10] MEDS: THIAMINE HCL 100 MG TABLET (FP) PO SCH (21:31)
[2020-08-10] MEDS: MELATONIN 5 MG TABLETS PO SCH (21:31)
[2020-08-10] MEDS ORDERED: TOLNAFTATE 1% CREAM 15 GM TUBE TP SCH (22:00)
[2020-08-11] MEDS ORDERED: METHADONE HCL 40 MG DISPERSABLE TABLET ONE (03:16)
[2020-08-11] MEDS ORDERED: METHADONE HCL 10 MG TABLET ONE (03:17)
[2020-08-11] MEDS: METHADONE 160 MG, METHADONE 30 MG PO SCH (05:58)
[2020-08-11] MEDS: risperiDONE 1 MG TABLET PO SCH ×2 (10:04→21:14)
[2020-08-11] MEDS: AMOXICILLIN 500 MG CAPSULE (FP) PO SCH ×2 (10:04→21:13)
[2020-08-11] MEDS: PRENATAL VITAMINS W/ FOLIC ACID TABLET (FP) PO SCH (10:04)
[2020-08-11] MEDS: CITALOPRAM HYDROBROMIDE 20 MG TABLET PO SCH (10:04)
[2020-08-11] MEDS: NICOTINE 7 MG/24 HOURS TOPICAL PATCH TD SCH (10:05)
[2020-08-11] MEDS: TOLNAFTATE 1% CREAM 15 GM TUBE TP SCH ×2 (10:05→21:54)
[2020-08-11] MEDS: CLOTRIMAZOLE/BETAMET DIPROP TOPICAL CREAM 45 GM TUBE TP SCH ×2 (10:05→21:14)
[2020-08-11] MEDS: PSYLLIUM 5.85 GM PACKET PO SCH ×2 (10:05→21:54)
[2020-08-11] MEDS: hydrOXYzine PAMOATE 25 MG CAPSULE (FP) PO PRN (10:06)
[2020-08-11] MEDS: IBUPROFEN 400 MG TABLET (FP) PO PRN (11:12)
[2020-08-11] MEDS: THIAMINE HCL 100 MG TABLET (FP) PO SCH (21:14)
[2020-08-11] MEDS: traZODone HCL 100 MG TABLET (FP) PO SCH (21:14)
[2020-08-11] MEDS: MELATONIN 5 MG TABLETS PO SCH (21:14)
[2020-08-12] MEDS ORDERED: METHADONE HCL 40 MG DISPERSABLE TABLET ONE (03:10)
[2020-08-12] MEDS ORDERED: METHADONE HCL 10 MG TABLET ONE (03:10)
[2020-08-12] MEDS: METHADONE 160 MG, METHADONE 30 MG PO SCH (05:59)
[2020-08-12] MEDS: COLLOIDAL OATMEAL 1 BAR EACH TP PRN (06:06)
[2020-08-12] MEDS: CLOTRIMAZOLE/BETAMET DIPROP TOPICAL CREAM 45 GM TUBE TP SCH ×2 (09:52→21:27)
[2020-08-12] MEDS: NICOTINE 7 MG/24 HOURS TOPICAL PATCH TD SCH (09:52)
[2020-08-12] MEDS: risperiDONE 1 MG TABLET PO SCH ×2 (09:52→21:25)
[2020-08-12] MEDS: PRENATAL VITAMINS W/ FOLIC ACID TABLET (FP) PO SCH (09:52)
[2020-08-12] MEDS: AMOXICILLIN 500 MG CAPSULE (FP) PO SCH ×2 (09:52→21:25)
[2020-08-12] MEDS: PSYLLIUM 5.85 GM PACKET PO SCH ×2 (09:52→21:25)
[2020-08-12] MEDS: CITALOPRAM HYDROBROMIDE 20 MG TABLET PO SCH (09:52)
[2020-08-12] MEDS: TOLNAFTATE 1% CREAM 15 GM TUBE TP SCH ×2 (09:53→21:26)
[2020-08-12] MEDS: MELATONIN 5 MG TABLETS PO SCH (21:25)
[2020-08-12] MEDS: THIAMINE HCL 100 MG TABLET (FP) PO SCH (21:25)
[2020-08-12] MEDS: traZODone HCL 100 MG TABLET (FP) PO SCH (21:25)
[2020-08-13] MEDS ORDERED: METHADONE HCL 10 MG TABLET ONE (05:47)
[2020-08-13] MEDS ORDERED: METHADONE HCL 40 MG DISPERSABLE TABLET ONE (05:47)
[2020-08-13] MEDS: METHADONE 160 MG, METHADONE 30 MG PO SCH (05:53)
[2020-08-13] MEDS: CITALOPRAM HYDROBROMIDE 20 MG TABLET PO SCH (09:43)
[2020-08-13] MEDS: CLOTRIMAZOLE/BETAMET DIPROP TOPICAL CREAM 45 GM TUBE TP SCH ×2 (09:43→21:17)
[2020-08-13] MEDS: AMOXICILLIN 500 MG CAPSULE (FP) PO SCH ×2 (09:43→21:16)
[2020-08-13] MEDS: NICOTINE 7 MG/24 HOURS TOPICAL PATCH TD SCH (09:43)
[2020-08-13] MEDS: PRENATAL VITAMINS W/ FOLIC ACID TABLET (FP) PO SCH (09:43)
[2020-08-13] MEDS: PSYLLIUM 5.85 GM PACKET PO SCH ×2 (09:43→21:16)
[2020-08-13] MEDS: TOLNAFTATE 1% CREAM 15 GM TUBE TP SCH ×2 (09:43→21:17)
[2020-08-13] MEDS: risperiDONE 1 MG TABLET PO SCH ×2 (09:43→21:16)
[2020-08-13] MEDS: THIAMINE HCL 100 MG TABLET (FP) PO SCH (21:16)
[2020-08-13] MEDS: MELATONIN 5 MG TABLETS PO SCH (21:16)
[2020-08-13] MEDS: traZODone HCL 100 MG TABLET (FP) PO SCH (21:16)
[2020-08-14] MEDS ORDERED: METHADONE HCL 10 MG TABLET ONE (03:23)
[2020-08-14] MEDS ORDERED: METHADONE HCL 40 MG DISPERSABLE TABLET ONE (03:23)
[2020-08-14] MEDS: METHADONE 160 MG, METHADONE 30 MG PO SCH (06:01)
[2020-08-14] MEDS: risperiDONE 1 MG TABLET PO SCH ×2 (10:11→21:43)
[2020-08-14] MEDS: AMOXICILLIN 500 MG CAPSULE (FP) PO SCH ×2 (10:11→21:43)
[2020-08-14] MEDS: PRENATAL VITAMINS W/ FOLIC ACID TABLET (FP) PO SCH (10:11)
[2020-08-14] MEDS: CITALOPRAM HYDROBROMIDE 20 MG TABLET PO SCH (10:11)
[2020-08-14] MEDS: TOLNAFTATE 1% CREAM 15 GM TUBE TP SCH ×2 (10:13→22:23)
[2020-08-14] MEDS: CLOTRIMAZOLE/BETAMET DIPROP TOPICAL CREAM 45 GM TUBE TP SCH ×2 (10:13→22:22)
[2020-08-14] MEDS: NICOTINE 7 MG/24 HOURS TOPICAL PATCH TD SCH (10:14)
[2020-08-14] MEDS: PSYLLIUM 5.85 GM PACKET PO SCH ×2 (10:14→22:22)
[2020-08-14] MEDS: THIAMINE HCL 100 MG TABLET (FP) PO SCH (21:43)
[2020-08-14] MEDS: traZODone HCL 100 MG TABLET (FP) PO SCH (21:43)
[2020-08-14] MEDS: hydrOXYzine PAMOATE 25 MG CAPSULE (FP) PO PRN (21:45)
[2020-08-14] MEDS: MELATONIN 5 MG TABLETS PO SCH (22:22)
[2020-08-15] MEDS ORDERED: METHADONE HCL 40 MG DISPERSABLE TABLET ONE (03:04)
[2020-08-15] MEDS ORDERED: METHADONE HCL 10 MG TABLET ONE (03:05)
[2020-08-15] MEDS: METHADONE 160 MG, METHADONE 30 MG PO SCH (05:58)
[2020-08-15] MEDS: PSYLLIUM 5.85 GM PACKET PO SCH ×2 (09:50→21:13)
[2020-08-15] MEDS: PRENATAL VITAMINS W/ FOLIC ACID TABLET (FP) PO SCH (09:50)
[2020-08-15] MEDS: AMOXICILLIN 500 MG CAPSULE (FP) PO SCH ×2 (09:50→21:13)
[2020-08-15] MEDS: risperiDONE 1 MG TABLET PO SCH ×2 (09:51→21:14)
[2020-08-15] MEDS: CLOTRIMAZOLE/BETAMET DIPROP TOPICAL CREAM 45 GM TUBE TP SCH ×2 (09:51→21:14)
[2020-08-15] MEDS: CITALOPRAM HYDROBROMIDE 20 MG TABLET PO SCH (09:51)
[2020-08-15] MEDS: NICOTINE 7 MG/24 HOURS TOPICAL PATCH TD SCH (09:51)
[2020-08-15] MEDS: hydrOXYzine PAMOATE 25 MG CAPSULE (FP) PO PRN (09:51)
[2020-08-15] MEDS: TOLNAFTATE 1% CREAM 15 GM TUBE TP SCH ×2 (10:52→21:15)
[2020-08-15] MEDS: traZODone HCL 100 MG TABLET (FP) PO SCH (21:13)
[2020-08-15] MEDS: THIAMINE HCL 100 MG TABLET (FP) PO SCH (21:14)
[2020-08-15] MEDS: MELATONIN 5 MG TABLETS PO SCH (21:14)
[2020-08-16] MEDS ORDERED: METHADONE HCL 40 MG DISPERSABLE TABLET ONE (03:35)
[2020-08-16] MEDS ORDERED: METHADONE HCL 10 MG TABLET ONE (03:36)
[2020-08-16] MEDS: METHADONE 160 MG, METHADONE 30 MG PO SCH (05:52)
[2020-08-16] MEDS: CITALOPRAM HYDROBROMIDE 20 MG TABLET PO SCH (10:09)
[2020-08-16] MEDS: PSYLLIUM 5.85 GM PACKET PO SCH ×2 (10:09→21:36)
[2020-08-16] MEDS: risperiDONE 1 MG TABLET PO SCH ×2 (10:09→21:36)
[2020-08-16] MEDS: AMOXICILLIN 500 MG CAPSULE (FP) PO SCH ×2 (10:09→21:36)
[2020-08-16] MEDS: CLOTRIMAZOLE/BETAMET DIPROP TOPICAL CREAM 45 GM TUBE TP SCH ×2 (10:09→22:16)
[2020-08-16] MEDS: PRENATAL VITAMINS W/ FOLIC ACID TABLET (FP) PO SCH (10:09)
[2020-08-16] MEDS: NICOTINE 7 MG/24 HOURS TOPICAL PATCH TD SCH (10:10)
[2020-08-16] MEDS: TOLNAFTATE 1% CREAM 15 GM TUBE TP SCH ×2 (10:10→21:37)
[2020-08-16] MEDS: traZODone HCL 100 MG TABLET (FP) PO SCH (21:36)
[2020-08-16] MEDS: MELATONIN 5 MG TABLETS PO SCH (21:37)
[2020-08-16] MEDS: THIAMINE HCL 100 MG TABLET (FP) PO SCH (21:37)
[2020-08-17] MEDS ORDERED: METHADONE HCL 40 MG DISPERSABLE TABLET ONE (03:06)
[2020-08-17] MEDS ORDERED: METHADONE HCL 10 MG TABLET ONE (03:06)
[2020-08-17] MEDS: METHADONE 160 MG, METHADONE 30 MG PO SCH (05:41)
[2020-08-17] MEDS: CLOTRIMAZOLE/BETAMET DIPROP TOPICAL CREAM 45 GM TUBE TP SCH ×2 (09:52→21:08)
[2020-08-17] MEDS: PSYLLIUM 5.85 GM PACKET PO SCH ×2 (09:52→21:07)
[2020-08-17] MEDS: CITALOPRAM HYDROBROMIDE 20 MG TABLET PO SCH (09:52)
[2020-08-17] MEDS: PRENATAL VITAMINS W/ FOLIC ACID TABLET (FP) PO SCH (09:52)
[2020-08-17] MEDS: NICOTINE 7 MG/24 HOURS TOPICAL PATCH TD SCH (09:52)
[2020-08-17] MEDS: TOLNAFTATE 1% CREAM 15 GM TUBE TP SCH ×2 (09:53→21:08)
[2020-08-17] MEDS: hydrOXYzine PAMOATE 25 MG CAPSULE (FP) PO PRN (10:27)
[2020-08-17] MEDS: risperiDONE 1 MG TABLET PO SCH ×2 (10:27→21:07)
[2020-08-17] MEDS: MELATONIN 5 MG TABLETS PO SCH (21:07)
[2020-08-17] MEDS: traZODone HCL 100 MG TABLET (FP) PO SCH (21:07)
[2020-08-17] MEDS: THIAMINE HCL 100 MG TABLET (FP) PO SCH (21:07)
[2020-08-18] MEDS ORDERED: METHADONE HCL 10 MG TABLET ONE (03:37)
[2020-08-18] MEDS ORDERED: METHADONE HCL 40 MG DISPERSABLE TABLET ONE (03:37)
[2020-08-18] MEDS: METHADONE 160 MG, METHADONE 30 MG PO SCH (05:57)
[2020-08-18] MEDS: hydrOXYzine PAMOATE 25 MG CAPSULE (FP) PO PRN (09:50)
[2020-08-18] MEDS: PRENATAL VITAMINS W/ FOLIC ACID TABLET (FP) PO SCH (09:50)
[2020-08-18] MEDS: risperiDONE 1 MG TABLET PO SCH ×2 (09:50→21:39)
[2020-08-18] MEDS: CITALOPRAM HYDROBROMIDE 20 MG TABLET PO SCH (09:51)
[2020-08-18] MEDS: CLOTRIMAZOLE/BETAMET DIPROP TOPICAL CREAM 45 GM TUBE TP SCH ×2 (09:51→21:40)
[2020-08-18] MEDS: NICOTINE 7 MG/24 HOURS TOPICAL PATCH TD SCH (09:51)
[2020-08-18] MEDS: PSYLLIUM 5.85 GM PACKET PO SCH ×2 (09:51→21:39)
[2020-08-18] MEDS: TOLNAFTATE 1% CREAM 15 GM TUBE TP SCH ×2 (09:53→21:40)
[2020-08-18] MEDS: traZODone HCL 100 MG TABLET (FP) PO SCH (21:39)
[2020-08-18] MEDS: MELATONIN 5 MG TABLETS PO SCH (21:39)
[2020-08-18] MEDS: THIAMINE HCL 100 MG TABLET (FP) PO SCH (21:40)
[2020-08-19] MEDS ORDERED: METHADONE HCL 10 MG TABLET ONE (05:41)
[2020-08-19] MEDS ORDERED: METHADONE HCL 40 MG DISPERSABLE TABLET ONE (05:41)
[2020-08-19] MEDS: METHADONE 160 MG, METHADONE 30 MG PO SCH (05:58)
[2020-08-19] MEDS: IBUPROFEN 400 MG TABLET (FP) PO PRN ×3 (05:58→21:21)
[2020-08-19] MEDS: hydrOXYzine PAMOATE 25 MG CAPSULE (FP) PO PRN (10:15)
[2020-08-19] MEDS: CITALOPRAM HYDROBROMIDE 20 MG TABLET PO SCH (10:15)
[2020-08-19] MEDS: PRENATAL VITAMINS W/ FOLIC ACID TABLET (FP) PO SCH (10:15)
[2020-08-19] MEDS: risperiDONE 1 MG TABLET PO SCH ×2 (10:15→21:20)
[2020-08-19] MEDS: TOLNAFTATE 1% CREAM 15 GM TUBE TP SCH ×2 (10:16→22:07)
[2020-08-19] MEDS: CLOTRIMAZOLE/BETAMET DIPROP TOPICAL CREAM 45 GM TUBE TP SCH ×2 (10:16→22:07)
[2020-08-19] MEDS: PSYLLIUM 5.85 GM PACKET PO SCH ×2 (10:16→21:20)
[2020-08-19] MEDS: NICOTINE 7 MG/24 HOURS TOPICAL PATCH TD SCH (10:16)
[2020-08-19] MEDS: traZODone HCL 100 MG TABLET (FP) PO SCH (21:20)
[2020-08-19] MEDS: THIAMINE HCL 100 MG TABLET (FP) PO SCH (21:21)
[2020-08-19] MEDS: MELATONIN 5 MG TABLETS PO SCH (21:21)
[2020-08-20] MEDS ORDERED: METHADONE HCL 40 MG DISPERSABLE TABLET ONE (03:07)
[2020-08-20] MEDS ORDERED: METHADONE HCL 10 MG TABLET ONE (03:07)
[2020-08-20] MEDS: COLLOIDAL OATMEAL 1 BAR EACH TP PRN ×2 (05:56→10:04)
[2020-08-20] MEDS: METHADONE 160 MG, METHADONE 30 MG PO SCH (05:56)
[2020-08-20] MEDS: IBUPROFEN 400 MG TABLET (FP) PO PRN ×3 (05:57→21:40)
[2020-08-20] MEDS: TOLNAFTATE 1% CREAM 15 GM TUBE TP SCH ×2 (09:57→21:41)
[2020-08-20] MEDS: CITALOPRAM HYDROBROMIDE 20 MG TABLET PO SCH (09:57)
[2020-08-20] MEDS: risperiDONE 1 MG TABLET PO SCH ×2 (09:57→21:39)
[2020-08-20] MEDS: PRENATAL VITAMINS W/ FOLIC ACID TABLET (FP) PO SCH (09:57)
[2020-08-20] MEDS: NICOTINE 7 MG/24 HOURS TOPICAL PATCH TD SCH (09:57)
[2020-08-20] MEDS: PSYLLIUM 5.85 GM PACKET PO SCH ×2 (09:57→21:39)
[2020-08-20] MEDS: CLOTRIMAZOLE/BETAMET DIPROP TOPICAL CREAM 45 GM TUBE TP SCH ×2 (09:57→21:41)
[2020-08-20] MEDS: BENZOCAINE 20 % GEL TUBE MM PRN (09:58)
[2020-08-20] MEDS: MELATONIN 5 MG TABLETS PO SCH (21:38)
[2020-08-20] MEDS: THIAMINE HCL 100 MG TABLET (FP) PO SCH (21:38)
[2020-08-20] MEDS: traZODone HCL 100 MG TABLET (FP) PO SCH (21:38)
[2020-08-21] MEDS ORDERED: METHADONE HCL 40 MG DISPERSABLE TABLET ONE (03:09)
[2020-08-21] MEDS ORDERED: METHADONE HCL 10 MG TABLET ONE (03:09)
[2020-08-21] MEDS: METHADONE 160 MG, METHADONE 30 MG PO SCH (06:02)
[2020-08-21] MEDS: IBUPROFEN 400 MG TABLET (FP) PO PRN (06:02)
[2020-08-21] MEDS: BENZOCAINE 20 % GEL TUBE MM PRN (06:03)
[2020-08-21 06:48] VITALS: BP 118/71; PULSE 77; TEMP 97.3
[2020-08-21] MEDS: PSYLLIUM 5.85 GM PACKET PO SCH (08:55)
[2020-08-21] MEDS: PRENATAL VITAMINS W/ FOLIC ACID TABLET (FP) PO SCH (08:55)
[2020-08-21] MEDS: CITALOPRAM HYDROBROMIDE 20 MG TABLET PO SCH (08:55)
[2020-08-21] MEDS: risperiDONE 1 MG TABLET PO SCH (08:55)
[2020-08-21] MEDS: NICOTINE 7 MG/24 HOURS TOPICAL PATCH TD SCH (09:13)
[2020-08-21] MEDS: CLOTRIMAZOLE/BETAMET DIPROP TOPICAL CREAM 45 GM TUBE TP SCH (09:14)
[2020-08-21] MEDS: TOLNAFTATE 1% CREAM 15 GM TUBE TP SCH (09:14)
== END 2020-08-21 09:00 | disposition home or self-care (01) | DRG 772 ==
LOC: YASAS 11:27 → Y3W 11:28
PROVIDERS: ADMIT Allergy & Immunology; ATTEND Allergy & Immunology
PROC: HZ42ZZZ Group Counseling for Substance Abuse Treatment, Cognitive-Behavioral (ICD-10-PCS; principal; 2020-07-30)
DX: F10.20 Alcohol dependence, uncomplicated (principal); F11.20 Opioid dependence, uncomplicated; F14.20 Cocaine dependence, uncomplicated; F41.9 Anxiety disorder, unspecified; I95.9 Hypotension, unspecified; K59.00 Constipation, unspecified; K08.89 Other specified disorders of teeth and supporting structures; K04.7 Periapical abscess without sinus; Z86.2 Personal history of diseases of the blood and blood-forming organs and certain disorders involving the immune mechanism; Z87.19 Personal history of other diseases of the digestive system; Z86.19 Personal history of other infectious and parasitic diseases
CPT/HCPCS: C9803; G0008; J0735; J2794; Q2036; U0003

== ENCOUNTER 2020-09-19 11:31 | Inpatient (IN) | payer OTHER ==
[2020-09-19] MEDS ORDERED: BISMUTH SUBSALICYLATE 524 MG/30 ML UD PO PRN (13:29)
[2020-09-19] MEDS ORDERED: NICOTINE POLACRILEX 2 MG GUM BUC PRN (13:29)
[2020-09-19] MEDS ORDERED: MAGNESIUM CITRATE 300 ML BOTTLE PO PRN (13:29)
[2020-09-19] MEDS ORDERED: MAGNESIUM HYDROX 2400MG/30ML ORAL SUSPENSION 30 ML CUP PO PRN (13:29)
[2020-09-19] MEDS ORDERED: MENTHOL/PHENOL 1 EACH UD MM PRN (13:29)
[2020-09-19] MEDS ORDERED: IBUPROFEN 400 MG TABLET (FP) PO PRN (13:29)
[2020-09-19] MEDS ORDERED: ACETAMINOPHEN 325 MG TABLET (FP) PO PRN ×2 (13:29)
[2020-09-19] MEDS ORDERED: MAG HYDROX/AL HYDROX/SIMETH 30 ML UNIT-DOSE CUP PO PRN (13:29)
[2020-09-19] MEDS ORDERED: ONDANSETRON *ODT* 4 MG TABLET SL PRN (13:29)
[2020-09-19 13:32] VITALS: BMI 21.8
[2020-09-19] MEDS: THIAMINE HCL 100 MG TABLET (FP) PO SCH (22:37)
[2020-09-19] MEDS: MELATONIN 5 MG TABLETS PO SCH (22:37)
[2020-09-19] MEDS: METHOCARBAMOL 500 MG TABLET PO PRN (22:38)
[2020-09-20] MEDS ORDERED: LORazepam 1 MG TABLET PO PRN (03:34)
[2020-09-20] MEDS: hydrOXYzine PAMOATE 25 MG CAPSULE (FP) PO PRN (05:54)
[2020-09-20] MEDS: LORazepam 2 MG TABLET PO SCH ×4 (05:54→22:25)
[2020-09-20 10:37] LABS: HEMOGLOBIN 10.7 GM/dL (11.7-16.9); MCH 22.7 pg (25.7-33.7); MCHC 32.3 g/dl (32.0-35.9); MEAN CELL VOLUME 70.3 fl (80-96); MEAN PLT VOLUME 8.5 fl (7.5-11.1); PLATELET COUNT 254 K/MM3 (134-434); RDW 16.5 % (11.9-15.9); WHITE BLOOD COUNT 2.9 K/mm3 (4.0-10.0)
[2020-09-20] MEDS: NICOTINE 7 MG/24 HOURS TOPICAL PATCH TD SCH (10:43)
[2020-09-20] MEDS: PRENATAL VITAMINS W/ FOLIC ACID TABLET (FP) PO SCH (10:43)
[2020-09-20 10:46] LABS: CALCIUM 8.7 mg/dL (8.5-10.1)
[2020-09-20 10:47] LABS: ALBUMIN 3.2 g/dl (3.4-5.0); BLOOD UREA NITROGEN 5.2 mg/dL (7-18)
[2020-09-20 10:50] LABS: CREATININE 0.9 mg/dL (0.55-1.3)
[2020-09-20 10:52] LABS: BILIRUBIN,TOTAL 0.7 mg/dL (0.2-1); TOT PROT 7.4 g/dl (6.4-8.2)
[2020-09-20 11:36] LABS: HIV INTERPRETATION NEGATIVE (NEGATIVE)
[2020-09-20] MEDS: THIAMINE HCL 100 MG TABLET (FP) PO SCH (22:25)
[2020-09-20] MEDS: MELATONIN 5 MG TABLETS PO SCH (22:25)
[2020-09-21] MEDS: LORazepam 1 MG TABLET PO SCH ×4 (05:35→22:15)
[2020-09-21] MEDS ORDERED: METHADONE HCL 10 MG TABLET PO ONE (10:13)
[2020-09-21] MEDS: PRENATAL VITAMINS W/ FOLIC ACID TABLET (FP) PO SCH (10:29)
[2020-09-21] MEDS: NICOTINE 7 MG/24 HOURS TOPICAL PATCH TD SCH (10:29)
[2020-09-21] MEDS: METHOCARBAMOL 500 MG TABLET PO PRN (10:31)
[2020-09-21] MEDS ORDERED: METHADONE HCL 10 MG TABLET ONE (11:25)
[2020-09-21] MEDS ORDERED: METHADONE HCL 40 MG DISPERSABLE TABLET ONE (11:26)
[2020-09-21] MEDS ORDERED: METHADONE 160 MG, METHADONE 30 MG PO ONE (11:30)
[2020-09-21] MEDS: MELATONIN 5 MG TABLETS PO SCH (22:15)
[2020-09-21] MEDS: THIAMINE HCL 100 MG TABLET (FP) PO SCH (22:15)
[2020-09-22] MEDS ORDERED: LORazepam 0.5 MG TABLET PO PRN
[2020-09-22] MEDS ORDERED: METHADONE HCL 10 MG TABLET ONE (04:14)
[2020-09-22] MEDS ORDERED: METHADONE HCL 40 MG DISPERSABLE TABLET ONE (04:15)
[2020-09-22] MEDS: LORazepam 0.5 MG TABLET PO SCH ×4 (05:22→22:07)
[2020-09-22] MEDS: METHADONE 160 MG, METHADONE 30 MG PO SCH (05:23)
[2020-09-22] MEDS ORDERED: METHADONE HCL 40 MG DISPERSABLE TABLET PO SCH (06:00)
[2020-09-22] MEDS: PRENATAL VITAMINS W/ FOLIC ACID TABLET (FP) PO SCH (10:15)
[2020-09-22] MEDS: FERROUS SO4 325 MG TABLET (FP) PO SCH (10:17)
[2020-09-22] MEDS: NICOTINE 7 MG/24 HOURS TOPICAL PATCH TD SCH (10:18)
[2020-09-22] MEDS: MELATONIN 5 MG TABLETS PO SCH (22:06)
[2020-09-22] MEDS: THIAMINE HCL 100 MG TABLET (FP) PO SCH (22:06)
[2020-09-22] MEDS: hydrOXYzine PAMOATE 25 MG CAPSULE (FP) PO PRN (22:08)
[2020-09-22] MEDS: METHOCARBAMOL 500 MG TABLET PO PRN (22:09)
[2020-09-23] MEDS ORDERED: METHADONE HCL 10 MG TABLET ONE (04:12)
[2020-09-23] MEDS ORDERED: METHADONE HCL 40 MG DISPERSABLE TABLET ONE (04:13)
[2020-09-23] MEDS ORDERED: LORazepam 0.5 MG TABLET PO ONE (05:00)
[2020-09-23] MEDS: METHADONE 160 MG, METHADONE 30 MG PO SCH (05:18)
[2020-09-23 06:06] LABS: SARS-CoV-2 NAA Not Detected (Not Detected)
[2020-09-23 09:23] VITALS: BP 118/80; PULSE 60; TEMP 97.5
[2020-09-23] MEDS: NICOTINE 7 MG/24 HOURS TOPICAL PATCH TD SCH (10:27)
[2020-09-23] MEDS: FERROUS SO4 325 MG TABLET (FP) PO SCH (10:27)
[2020-09-23] MEDS: PRENATAL VITAMINS W/ FOLIC ACID TABLET (FP) PO SCH (10:27)
[2020-09-23] MEDS: METHOCARBAMOL 500 MG TABLET PO PRN (10:28)
== END 2020-09-23 12:16 | disposition other institution (70) | DRG 773 ==
LOC: YASAS 11:31 → Y3N 14:21
PROVIDERS: ADMIT Allergy & Immunology; ATTEND Allergy & Immunology
PROC: HZ2ZZZZ Detoxification Services for Substance Abuse Treatment (ICD-10-PCS; principal; 2020-09-19)
DX: F10.230 Alcohol dependence with withdrawal, uncomplicated (principal); F11.20 Opioid dependence, uncomplicated; F14.20 Cocaine dependence, uncomplicated; F17.210 Nicotine dependence, cigarettes, uncomplicated; F19.282 Other psychoactive substance dependence with psychoactive substance-induced sleep disorder; F19.24 Other psychoactive substance dependence with psychoactive substance-induced mood disorder; F41.1 Generalized anxiety disorder; F31.9 Bipolar disorder, unspecified; D50.9 Iron deficiency anemia, unspecified; K08.89 Other specified disorders of teeth and supporting structures; B18.2 Chronic viral hepatitis C; Z87.19 Personal history of other diseases of the digestive system; Z87.81 Personal history of (healed) traumatic fracture; Z98.890 Other specified postprocedural states
CPT/HCPCS: 36415; 80053; 85027; 86780; 87389; C9803; U0003; U0005

== ENCOUNTER 2020-09-23 11:47 | Inpatient (IN) | payer OTHER ==
[2020-09-23] MEDS ORDERED: MAG HYDROX/AL HYDROX/SIMETH 30 ML UNIT-DOSE CUP PO PRN (15:08)
[2020-09-23] MEDS ORDERED: IBUPROFEN 400 MG TABLET (FP) PO PRN (15:08)
[2020-09-23] MEDS ORDERED: MAGNESIUM CITRATE 300 ML BOTTLE PO PRN (15:08)
[2020-09-23] MEDS ORDERED: MENTHOL/PHENOL 1 EACH UD MM PRN (15:08)
[2020-09-23] MEDS ORDERED: NICOTINE POLACRILEX 2 MG GUM BUC PRN (15:08)
[2020-09-23] MEDS ORDERED: ACETAMINOPHEN 325 MG TABLET (FP) PO PRN (15:08)
[2020-09-23] MEDS ORDERED: MAGNESIUM HYDROX 2400MG/30ML ORAL SUSPENSION 30 ML CUP PO PRN (15:08)
[2020-09-23] MEDS ORDERED: guaiFENesin 200 MG/10 ML 10 ML UNIT-DOSE CUPS PO PRN (15:08)
[2020-09-23] MEDS ORDERED: P-EPHED 60MG/TRIPROLIDI 2.5MG TABLET PO PRN (15:08)
[2020-09-23] MEDS ORDERED: LOPERAMIDE HCL 2 MG CAPSULE PO PRN (15:08)
[2020-09-23] MEDS: CYPROHEPTADINE HCL 4 MG TABLET PO SCH (16:30)
[2020-09-23] MEDS ORDERED: PT OWN MED DRAWER 7, Y5N ONE (16:41)
[2020-09-23] MEDS: METHOCARBAMOL 500 MG TABLET PO SCH ×2 (18:30→21:33)
[2020-09-23] MEDS: THIAMINE HCL 100 MG TABLET (FP) PO SCH (21:21)
[2020-09-23] MEDS: MELATONIN 5 MG TABLETS PO SCH (21:21)
[2020-09-24] MEDS ORDERED: PT OWN MED DRAWER 7, Y5N ONE ×3 (03:18→17:04)
[2020-09-24] MEDS ORDERED: METHADONE HCL 10 MG TABLET PO SCH (06:00)
[2020-09-24] MEDS ORDERED: METHADONE HCL 10 MG TABLET ONE (06:01)
[2020-09-24] MEDS ORDERED: METHADONE HCL 40 MG DISPERSABLE TABLET ONE (06:01)
[2020-09-24] MEDS: METHADONE 160 MG, METHADONE 30 MG PO SCH (07:33)
[2020-09-24] MEDS: CYPROHEPTADINE HCL 4 MG TABLET PO SCH ×3 (07:35→17:08)
[2020-09-24] MEDS: FERROUS SO4 325 MG TABLET (FP) PO SCH (09:42)
[2020-09-24] MEDS: METHOCARBAMOL 500 MG TABLET PO SCH ×4 (09:42→21:23)
[2020-09-24] MEDS: PRENATAL VITAMINS W/ FOLIC ACID TABLET (FP) PO SCH (09:42)
[2020-09-24] MEDS: NICOTINE 7 MG/24 HOURS TOPICAL PATCH TD SCH (09:43)
[2020-09-24] MEDS: hydrOXYzine PAMOATE 25 MG CAPSULE (FP) PO PRN ×2 (09:44→21:23)
[2020-09-24] MEDS: traZODone HCL 100 MG TABLET (FP) PO SCH (21:23)
[2020-09-24] MEDS: THIAMINE HCL 100 MG TABLET (FP) PO SCH (21:23)
[2020-09-24] MEDS: MELATONIN 5 MG TABLETS PO SCH (21:23)
[2020-09-24] MEDS: risperiDONE 1 MG TABLET PO SCH (21:23)
[2020-09-25] MEDS ORDERED: METHADONE HCL 10 MG TABLET ONE (03:20)
[2020-09-25] MEDS ORDERED: METHADONE HCL 40 MG DISPERSABLE TABLET ONE (03:20)
[2020-09-25] MEDS ORDERED: PT OWN MED DRAWER 7, Y5N ONE ×3 (03:21→17:10)
[2020-09-25] MEDS: CYPROHEPTADINE HCL 4 MG TABLET PO SCH ×3 (06:17→17:47)
[2020-09-25] MEDS: METHADONE 160 MG, METHADONE 30 MG PO SCH (06:17)
[2020-09-25] MEDS: NICOTINE 7 MG/24 HOURS TOPICAL PATCH TD SCH (09:32)
[2020-09-25] MEDS: METHOCARBAMOL 500 MG TABLET PO SCH ×4 (09:32→21:17)
[2020-09-25] MEDS: PRENATAL VITAMINS W/ FOLIC ACID TABLET (FP) PO SCH (09:32)
[2020-09-25] MEDS: FERROUS SO4 325 MG TABLET (FP) PO SCH (09:32)
[2020-09-25] MEDS: risperiDONE 1 MG TABLET PO SCH ×2 (09:32→21:17)
[2020-09-25] MEDS: CITALOPRAM HYDROBROMIDE 20 MG TABLET PO SCH (09:33)
[2020-09-25] MEDS: MELATONIN 5 MG TABLETS PO SCH (21:17)
[2020-09-25] MEDS: THIAMINE HCL 100 MG TABLET (FP) PO SCH (21:17)
[2020-09-25] MEDS: traZODone HCL 100 MG TABLET (FP) PO SCH (21:17)
[2020-09-25] MEDS: TOLNAFTATE 1% CREAM 15 GM TUBE TP SCH (22:35)
[2020-09-26] MEDS ORDERED: METHADONE HCL 10 MG TABLET ONE (03:58)
[2020-09-26] MEDS ORDERED: METHADONE HCL 40 MG DISPERSABLE TABLET ONE (03:59)
[2020-09-26] MEDS: METHADONE 160 MG, METHADONE 30 MG PO SCH (06:12)
[2020-09-26] MEDS: CYPROHEPTADINE HCL 4 MG TABLET PO SCH ×3 (06:12→16:40)
[2020-09-26] MEDS: METHOCARBAMOL 500 MG TABLET PO SCH ×4 (11:11→21:13)
[2020-09-26] MEDS: risperiDONE 1 MG TABLET PO SCH ×2 (11:11→21:12)
[2020-09-26] MEDS: TOLNAFTATE 1% CREAM 15 GM TUBE TP SCH ×2 (11:11→21:13)
[2020-09-26] MEDS: FERROUS SO4 325 MG TABLET (FP) PO SCH (11:11)
[2020-09-26] MEDS: CITALOPRAM HYDROBROMIDE 20 MG TABLET PO SCH (11:11)
[2020-09-26] MEDS: PRENATAL VITAMINS W/ FOLIC ACID TABLET (FP) PO SCH (11:11)
[2020-09-26] MEDS: NICOTINE 7 MG/24 HOURS TOPICAL PATCH TD SCH (11:11)
[2020-09-26] MEDS ORDERED: PT OWN MED DRAWER 7, Y5N ONE (16:27)
[2020-09-26] MEDS: traZODone HCL 100 MG TABLET (FP) PO SCH (21:12)
[2020-09-26] MEDS: MELATONIN 5 MG TABLETS PO SCH (21:12)
[2020-09-26] MEDS: THIAMINE HCL 100 MG TABLET (FP) PO SCH (21:12)
[2020-09-27] MEDS ORDERED: METHADONE HCL 40 MG DISPERSABLE TABLET ONE (05:56)
[2020-09-27] MEDS ORDERED: METHADONE HCL 10 MG TABLET ONE (05:56)
[2020-09-27] MEDS ORDERED: PT OWN MED DRAWER 7, Y5N ONE ×3 (05:57→16:47)
[2020-09-27] MEDS: METHADONE 160 MG, METHADONE 30 MG PO SCH (06:24)
[2020-09-27] MEDS: CYPROHEPTADINE HCL 4 MG TABLET PO SCH ×3 (06:25→17:20)
[2020-09-27 06:54] VITALS: TEMP 97.3
[2020-09-27] MEDS: CITALOPRAM HYDROBROMIDE 20 MG TABLET PO SCH (09:40)
[2020-09-27] MEDS: risperiDONE 1 MG TABLET PO SCH ×2 (09:40→21:28)
[2020-09-27] MEDS: PRENATAL VITAMINS W/ FOLIC ACID TABLET (FP) PO SCH (09:40)
[2020-09-27] MEDS: NICOTINE 7 MG/24 HOURS TOPICAL PATCH TD SCH (09:40)
[2020-09-27] MEDS: FERROUS SO4 325 MG TABLET (FP) PO SCH (09:40)
[2020-09-27] MEDS: METHOCARBAMOL 500 MG TABLET PO SCH ×4 (09:41→21:30)
[2020-09-27] MEDS: TOLNAFTATE 1% CREAM 15 GM TUBE TP SCH ×2 (09:42→21:30)
[2020-09-27 14:07] LABS: SARS-CoV-2 NAA Not Detected (Not Detected)
[2020-09-27] MEDS: THIAMINE HCL 100 MG TABLET (FP) PO SCH (21:28)
[2020-09-27] MEDS: traZODone HCL 100 MG TABLET (FP) PO SCH (21:28)
[2020-09-27] MEDS: MELATONIN 5 MG TABLETS PO SCH (21:28)
[2020-09-28] MEDS ORDERED: METHADONE HCL 40 MG DISPERSABLE TABLET ONE (03:57)
[2020-09-28] MEDS ORDERED: METHADONE HCL 10 MG TABLET ONE (03:57)
[2020-09-28] MEDS ORDERED: PT OWN MED DRAWER 7, Y5N ONE (03:59)
[2020-09-28] MEDS: CYPROHEPTADINE HCL 4 MG TABLET PO SCH (06:22)
[2020-09-28] MEDS: METHADONE 160 MG, METHADONE 30 MG PO SCH (06:22)
[2020-09-28 06:29] VITALS: BP 116/73; PULSE 81
== END 2020-09-28 09:00 | disposition home or self-care (01) | DRG 772 ==
LOC: YASAS 11:47 → Y3E 11:48
PROVIDERS: ADMIT Allergy & Immunology; ATTEND Allergy & Immunology
PROC: HZ42ZZZ Group Counseling for Substance Abuse Treatment, Cognitive-Behavioral (ICD-10-PCS; principal; 2020-09-23)
DX: F10.20 Alcohol dependence, uncomplicated (principal); F11.20 Opioid dependence, uncomplicated; F14.20 Cocaine dependence, uncomplicated; F17.210 Nicotine dependence, cigarettes, uncomplicated; F19.282 Other psychoactive substance dependence with psychoactive substance-induced sleep disorder; F31.9 Bipolar disorder, unspecified; D64.9 Anemia, unspecified; K21.9 Gastro-esophageal reflux disease without esophagitis; B18.2 Chronic viral hepatitis C; Z62.810 Personal history of physical and sexual abuse in childhood; Z91.5 Personal history of self-harm; Z98.890 Other specified postprocedural states; Z59.0 Homelessness; Z56.0 Unemployment, unspecified
CPT/HCPCS: C9803; J2794; U0003; U0005

== ENCOUNTER 2020-10-28 12:42 | Inpatient (IN) | payer OTHER ==
[2020-10-28 13:21] VITALS: BMI 21.5
[2020-10-28] MEDS ORDERED: MAGNESIUM HYDROX 2400MG/30ML ORAL SUSPENSION 30 ML CUP PO PRN (14:05)
[2020-10-28] MEDS ORDERED: ONDANSETRON *ODT* 4 MG TABLET SL PRN (14:05)
[2020-10-28] MEDS ORDERED: ACETAMINOPHEN 325 MG TABLET (FP) PO PRN ×2 (14:05)
[2020-10-28] MEDS ORDERED: MAG HYDROX/AL HYDROX/SIMETH 30 ML UNIT-DOSE CUP PO PRN (14:05)
[2020-10-28] MEDS ORDERED: MENTHOL/PHENOL 1 EACH UD MM PRN (14:05)
[2020-10-28] MEDS ORDERED: NICOTINE POLACRILEX 2 MG GUM BUC PRN (14:05)
[2020-10-28] MEDS ORDERED: IBUPROFEN 400 MG TABLET (FP) PO PRN (14:05)
[2020-10-28] MEDS ORDERED: MAGNESIUM CITRATE 300 ML BOTTLE PO PRN (14:05)
[2020-10-28] MEDS ORDERED: METHOCARBAMOL 500 MG TABLET PO PRN (14:05)
[2020-10-28] MEDS ORDERED: diazePAM 5 MG TABLET PO PRN (14:05)
[2020-10-28] MEDS ORDERED: BISMUTH SUBSALICYLATE 262 MG/15 ML BTL PO PRN (14:05)
[2020-10-28] MEDS: NICOTINE 14 MG/24 HOURS TOPICAL PATCH TD SCH (15:57)
[2020-10-28] MEDS: FERROUS SO4 325 MG TABLET (FP) PO SCH (15:57)
[2020-10-28] MEDS: PRENATAL VITAMINS W/ FOLIC ACID TABLET (FP) PO SCH (15:58)
[2020-10-28 16:53] LABS: HEMATOCRIT 32.5 % (35.4-49); HEMOGLOBIN 10.5 GM/dL (11.7-16.9); MCH 22.8 pg (25.7-33.7); MCHC 32.3 g/dl (32.0-35.9); MEAN CELL VOLUME 70.6 fl (80-96); MEAN PLT VOLUME 8.4 fl (7.5-11.1); PLATELET COUNT 240 K/MM3 (134-434); RBC 4.61 M/mm3 (4.00-5.60); RDW 16.2 % (11.9-15.9); WHITE BLOOD COUNT 4.1 K/mm3 (4.0-10.0)
[2020-10-28 16:56] LABS: ALBUMIN 3.9 g/dl (3.4-5.0); BLOOD UREA NITROGEN 5.2 mg/dL (7-18)
[2020-10-28 16:59] LABS: CREATININE 0.8 mg/dL (0.55-1.3)
[2020-10-28 17:01] LABS: BILIRUBIN,TOTAL 0.5 mg/dL (0.2-1); TOT PROT 8.4 g/dl (6.4-8.2)
[2020-10-28] MEDS: diazePAM 5 MG TABLET PO SCH ×2 (17:38→22:12)
[2020-10-28] MEDS: hydrOXYzine PAMOATE 25 MG CAPSULE (FP) PO SCH ×2 (17:38→22:12)
[2020-10-28 17:50] LABS: HIV INTERPRETATION NEGATIVE (NEGATIVE)
[2020-10-28] MEDS: THIAMINE HCL 100 MG TABLET (FP) PO SCH (22:12)
[2020-10-28] MEDS: MELATONIN 5 MG TABLETS PO SCH (22:12)
[2020-10-29] MEDS: hydrOXYzine PAMOATE 25 MG CAPSULE (FP) PO SCH ×2 (05:28→10:48)
[2020-10-29] MEDS: diazePAM 5 MG TABLET PO SCH ×4 (05:28→22:07)
[2020-10-29] MEDS: PRENATAL VITAMINS W/ FOLIC ACID TABLET (FP) PO SCH (10:49)
[2020-10-29] MEDS: FERROUS SO4 325 MG TABLET (FP) PO SCH (10:49)
[2020-10-29] MEDS: METHADONE HCL 40 MG DISPERSABLE TABLET PO SCH (10:49)
[2020-10-29] MEDS: NICOTINE 14 MG/24 HOURS TOPICAL PATCH TD SCH (10:52)
[2020-10-29] MEDS: CITALOPRAM HYDROBROMIDE 20 MG TABLET PO SCH (11:03)
[2020-10-29] MEDS: risperiDONE 2 MG TABLET PO SCH ×2 (11:03→22:07)
[2020-10-29] MEDS: hydrOXYzine PAMOATE 25 MG CAPSULE (FP) PO PRN (17:14)
[2020-10-29] MEDS: MELATONIN 5 MG TABLETS PO SCH (22:07)
[2020-10-29] MEDS: THIAMINE HCL 100 MG TABLET (FP) PO SCH (22:07)
[2020-10-29] MEDS: traZODone HCL 100 MG TABLET (FP) PO SCH (22:07)
[2020-10-30] MEDS: diazePAM 5 MG TABLET PO SCH ×3 (05:49→22:19)
[2020-10-30] MEDS: METHADONE HCL 40 MG DISPERSABLE TABLET PO SCH (05:50)
[2020-10-30] MEDS: NICOTINE 14 MG/24 HOURS TOPICAL PATCH TD SCH (10:37)
[2020-10-30] MEDS: FERROUS SO4 325 MG TABLET (FP) PO SCH (10:37)
[2020-10-30] MEDS: risperiDONE 2 MG TABLET PO SCH ×2 (10:37→22:19)
[2020-10-30] MEDS: PRENATAL VITAMINS W/ FOLIC ACID TABLET (FP) PO SCH (10:37)
[2020-10-30] MEDS: CITALOPRAM HYDROBROMIDE 20 MG TABLET PO SCH (10:37)
[2020-10-30] MEDS: traZODone HCL 100 MG TABLET (FP) PO SCH (22:19)
[2020-10-30] MEDS: hydrOXYzine PAMOATE 25 MG CAPSULE (FP) PO PRN (22:19)
[2020-10-30] MEDS: THIAMINE HCL 100 MG TABLET (FP) PO SCH (22:19)
[2020-10-30] MEDS: MELATONIN 5 MG TABLETS PO SCH (22:19)
[2020-10-31] MEDS: METHADONE HCL 40 MG DISPERSABLE TABLET PO SCH (05:29)
[2020-10-31] MEDS: diazePAM 5 MG TABLET PO SCH ×2 (05:30→18:13)
[2020-10-31 10:07] LABS: SARS-CoV-2 NAA Not Detected (Not Detected)
[2020-10-31 10:20] LABS: CALCIUM 8.7 mg/dL (8.5-10.1)
[2020-10-31 10:21] LABS: ALBUMIN 3.3 g/dl (3.4-5.0); BLOOD UREA NITROGEN 11.9 mg/dL (7-18)
[2020-10-31 10:24] LABS: CREATININE 0.9 mg/dL (0.55-1.3)
[2020-10-31 10:25] LABS: BILIRUBIN,TOTAL 0.3 mg/dL (0.2-1); TOT PROT 7.5 g/dl (6.4-8.2)
[2020-10-31 10:27] LABS: HEMATOCRIT 34.8 % (35.4-49); HEMOGLOBIN 11.1 GM/dL (11.7-16.9); MCH 23.1 pg (25.7-33.7); MCHC 31.9 g/dl (32.0-35.9); MEAN CELL VOLUME 72.5 fl (80-96); MEAN PLT VOLUME 9.6 fl (7.5-11.1); PLATELET COUNT 235 K/MM3 (134-434); RDW 16.9 % (11.9-15.9)
[2020-10-31] MEDS: PRENATAL VITAMINS W/ FOLIC ACID TABLET (FP) PO SCH (10:36)
[2020-10-31] MEDS: risperiDONE 2 MG TABLET PO SCH ×2 (10:37→22:26)
[2020-10-31] MEDS: FERROUS SO4 325 MG TABLET (FP) PO SCH (10:37)
[2020-10-31] MEDS: CITALOPRAM HYDROBROMIDE 20 MG TABLET PO SCH (10:37)
[2020-10-31] MEDS: NICOTINE 14 MG/24 HOURS TOPICAL PATCH TD SCH (10:37)
[2020-10-31] MEDS: THIAMINE HCL 100 MG TABLET (FP) PO SCH (22:26)
[2020-10-31] MEDS: MELATONIN 5 MG TABLETS PO SCH (22:26)
[2020-10-31] MEDS: traZODone HCL 100 MG TABLET (FP) PO SCH (22:26)
[2020-11-01] MEDS: METHADONE HCL 40 MG DISPERSABLE TABLET PO SCH (05:53)
[2020-11-01] MEDS ORDERED: diazePAM 5 MG TABLET PO ONE (06:00)
[2020-11-01] MEDS: FERROUS SO4 325 MG TABLET (FP) PO SCH (11:02)
[2020-11-01] MEDS: CITALOPRAM HYDROBROMIDE 20 MG TABLET PO SCH (11:02)
[2020-11-01] MEDS: PRENATAL VITAMINS W/ FOLIC ACID TABLET (FP) PO SCH (11:02)
[2020-11-01] MEDS: NICOTINE 14 MG/24 HOURS TOPICAL PATCH TD SCH (11:03)
[2020-11-01] MEDS: risperiDONE 2 MG TABLET PO SCH ×2 (11:04→22:16)
[2020-11-01] MEDS: MELATONIN 5 MG TABLETS PO SCH (22:16)
[2020-11-01] MEDS: THIAMINE HCL 100 MG TABLET (FP) PO SCH (22:16)
[2020-11-01] MEDS: traZODone HCL 100 MG TABLET (FP) PO SCH (22:17)
[2020-11-02] MEDS: METHADONE HCL 40 MG DISPERSABLE TABLET PO SCH (05:51)
[2020-11-02 09:53] VITALS: BP 89/62; PULSE 102; TEMP 96.1
[2020-11-02] MEDS: PRENATAL VITAMINS W/ FOLIC ACID TABLET (FP) PO SCH (10:16)
[2020-11-02] MEDS: risperiDONE 2 MG TABLET PO SCH (10:16)
[2020-11-02] MEDS: FERROUS SO4 325 MG TABLET (FP) PO SCH (10:16)
[2020-11-02] MEDS: NICOTINE 14 MG/24 HOURS TOPICAL PATCH TD SCH (10:16)
[2020-11-02] MEDS: CITALOPRAM HYDROBROMIDE 20 MG TABLET PO SCH (10:16)
== END 2020-11-02 10:56 | disposition home or self-care (01) | DRG 773 ==
LOC: YASAS 12:42 → Y3N 13:44
PROVIDERS: ADMIT Allergy & Immunology; ATTEND Allergy & Immunology
PROC: HZ2ZZZZ Detoxification Services for Substance Abuse Treatment (ICD-10-PCS; principal; 2020-10-28)
DX: F10.230 Alcohol dependence with withdrawal, uncomplicated (principal); F11.20 Opioid dependence, uncomplicated; F14.20 Cocaine dependence, uncomplicated; F17.210 Nicotine dependence, cigarettes, uncomplicated; F19.282 Other psychoactive substance dependence with psychoactive substance-induced sleep disorder; F31.9 Bipolar disorder, unspecified; F39 Unspecified mood [affective] disorder; F41.1 Generalized anxiety disorder; D64.9 Anemia, unspecified; B18.2 Chronic viral hepatitis C; Z87.19 Personal history of other diseases of the digestive system; Z98.890 Other specified postprocedural states; Z56.0 Unemployment, unspecified; Z59.0 Homelessness
CPT/HCPCS: 36415; 80053; 85027; 86780; 87389; C9803; U0003; U0005

== ENCOUNTER 2020-11-20 12:36 | Inpatient (IN) | payer OTHER ==
[2020-11-20 15:58] VITALS: BMI 20.9
[2020-11-20] MEDS ORDERED: MAGNESIUM HYDROX 2400MG/30ML ORAL SUSPENSION 30 ML CUP PO PRN (17:04)
[2020-11-20] MEDS ORDERED: IBUPROFEN 400 MG TABLET (FP) PO PRN (17:04)
[2020-11-20] MEDS ORDERED: NICOTINE POLACRILEX 2 MG GUM BUC PRN (17:04)
[2020-11-20] MEDS ORDERED: MENTHOL/PHENOL 1 EACH UD MM PRN (17:04)
[2020-11-20] MEDS ORDERED: METHOCARBAMOL 500 MG TABLET PO PRN (17:04)
[2020-11-20] MEDS ORDERED: ACETAMINOPHEN 325 MG TABLET (FP) PO PRN ×2 (17:04)
[2020-11-20] MEDS ORDERED: ONDANSETRON *ODT* 4 MG TABLET SL PRN (17:04)
[2020-11-20] MEDS ORDERED: BISMUTH SUBSALICYLATE 524 MG/30 ML PO PRN (17:04)
[2020-11-20] MEDS ORDERED: LORazepam 1 MG TABLET PO PRN (17:04)
[2020-11-20] MEDS ORDERED: MAG HYDROX/AL HYDROX/SIMETH 30 ML UNIT-DOSE CUP PO PRN (17:04)
[2020-11-20] MEDS ORDERED: MAGNESIUM CITRATE 300 ML BOTTLE PO PRN (17:04)
[2020-11-20] MEDS: hydrOXYzine PAMOATE 25 MG CAPSULE (FP) PO SCH ×2 (18:47→22:56)
[2020-11-20] MEDS: THIAMINE HCL 100 MG TABLET (FP) PO SCH (22:56)
[2020-11-20] MEDS: LORazepam 2 MG TABLET PO SCH (22:56)
[2020-11-20] MEDS: MELATONIN 5 MG TABLETS PO SCH (22:56)
[2020-11-21] MEDS: hydrOXYzine PAMOATE 25 MG CAPSULE (FP) PO SCH ×5 (05:37→22:22)
[2020-11-21] MEDS: LORazepam 2 MG TABLET PO SCH ×4 (05:37→22:20)
[2020-11-21] MEDS ORDERED: METHADONE HCL 10 MG TABLET PO SCH (06:00)
[2020-11-21 10:42] LABS: CALCIUM 8.9 mg/dL (8.5-10.1)
[2020-11-21 10:43] LABS: ALBUMIN 3.5 g/dl (3.4-5.0); BLOOD UREA NITROGEN 8.1 mg/dL (7-18)
[2020-11-21 10:46] LABS: CREATININE 0.8 mg/dL (0.55-1.3)
[2020-11-21 10:48] LABS: BILIRUBIN,TOTAL 0.9 mg/dL (0.2-1); TOT PROT 7.6 g/dl (6.4-8.2)
[2020-11-21] MEDS: PRENATAL VITAMINS W/ FOLIC ACID TABLET (FP) PO SCH (10:52)
[2020-11-21] MEDS: NICOTINE 7 MG/24 HOURS TOPICAL PATCH TD SCH (10:52)
[2020-11-21] MEDS: METHADONE HCL 40 MG DISPERSABLE TABLET PO SCH (10:53)
[2020-11-21 11:04] LABS: HEMATOCRIT 34.5 % (35.4-49); MCH 22.4 pg (25.7-33.7); MCHC 31.9 g/dl (32.0-35.9); MEAN CELL VOLUME 70.3 fl (80-96); MEAN PLT VOLUME 8.4 fl (7.5-11.1); PLATELET COUNT 182 10^3/uL (134-434); RBC 4.91 M/mm3 (4.00-5.60); RDW 16.6 % (11.9-15.9); WHITE BLOOD COUNT 3.2 K/mm3 (4.0-10.0)
[2020-11-21] MEDS ORDERED: traZODone HCL 100 MG TABLET (FP) PO SCH (22:00)
[2020-11-21] MEDS ORDERED: risperiDONE 1 MG TABLET PO SCH (22:00)
[2020-11-21] MEDS: MELATONIN 5 MG TABLETS PO SCH (22:20)
[2020-11-21] MEDS: THIAMINE HCL 100 MG TABLET (FP) PO SCH (22:20)
[2020-11-21] MEDS: risperiDONE 1 MG TABLET PO SCH (22:22)
[2020-11-21] MEDS: traZODone HCL 100 MG TABLET (FP) PO SCH (22:22)
[2020-11-22] MEDS: hydrOXYzine PAMOATE 25 MG CAPSULE (FP) PO SCH ×5 (06:41→22:16)
[2020-11-22] MEDS: LORazepam 1 MG TABLET PO SCH ×4 (06:41→22:16)
[2020-11-22] MEDS: METHADONE HCL 40 MG DISPERSABLE TABLET PO SCH (10:28)
[2020-11-22] MEDS: NICOTINE 7 MG/24 HOURS TOPICAL PATCH TD SCH (10:29)
[2020-11-22] MEDS: CITALOPRAM HYDROBROMIDE 20 MG TABLET PO SCH (10:29)
[2020-11-22] MEDS: PRENATAL VITAMINS W/ FOLIC ACID TABLET (FP) PO SCH (10:29)
[2020-11-22] MEDS: MELATONIN 5 MG TABLETS PO SCH (22:16)
[2020-11-22] MEDS: THIAMINE HCL 100 MG TABLET (FP) PO SCH (22:16)
[2020-11-22] MEDS: traZODone HCL 100 MG TABLET (FP) PO SCH (22:24)
[2020-11-22] MEDS: risperiDONE 1 MG TABLET PO SCH (22:24)
[2020-11-23] MEDS ORDERED: LORazepam 0.5 MG TABLET PO PRN
[2020-11-23] MEDS: hydrOXYzine PAMOATE 25 MG CAPSULE (FP) PO SCH ×5 (05:26→22:23)
[2020-11-23] MEDS: LORazepam 0.5 MG TABLET PO SCH ×4 (05:26→22:21)
[2020-11-23] MEDS: CITALOPRAM HYDROBROMIDE 20 MG TABLET PO SCH (10:19)
[2020-11-23] MEDS: PRENATAL VITAMINS W/ FOLIC ACID TABLET (FP) PO SCH (10:20)
[2020-11-23] MEDS: NICOTINE 7 MG/24 HOURS TOPICAL PATCH TD SCH (10:20)
[2020-11-23] MEDS ORDERED: METHADONE HCL 40 MG DISPERSABLE TABLET PO ONE (11:00)
[2020-11-23] MEDS: risperiDONE 1 MG TABLET PO SCH (22:17)
[2020-11-23] MEDS: THIAMINE HCL 100 MG TABLET (FP) PO SCH (22:21)
[2020-11-23] MEDS: MELATONIN 5 MG TABLETS PO SCH (22:21)
[2020-11-23] MEDS: traZODone HCL 100 MG TABLET (FP) PO SCH (22:21)
[2020-11-24] MEDS ORDERED: LORazepam 0.5 MG TABLET PO ONE (05:00)
[2020-11-24] MEDS: hydrOXYzine PAMOATE 25 MG CAPSULE (FP) PO SCH (05:35)
[2020-11-24] MEDS ORDERED: METHADONE HCL 40 MG DISPERSABLE TABLET PO SCH (06:00)
[2020-11-24] MEDS ORDERED: hydrOXYzine PAMOATE 25 MG CAPSULE (FP) PO PRN (09:01)
[2020-11-24 09:33] VITALS: BP 104/63; PULSE 53; TEMP 96.8
[2020-11-24] MEDS: CITALOPRAM HYDROBROMIDE 20 MG TABLET PO SCH (10:19)
[2020-11-24] MEDS: PRENATAL VITAMINS W/ FOLIC ACID TABLET (FP) PO SCH (10:19)
[2020-11-24] MEDS: NICOTINE 7 MG/24 HOURS TOPICAL PATCH TD SCH (10:20)
== END 2020-11-24 10:20 | disposition other institution (70) | DRG 773 ==
LOC: YASAS 12:36 → Y3N 17:33
PROVIDERS: ADMIT Allergy & Immunology; ATTEND Allergy & Immunology
PROC: HZ2ZZZZ Detoxification Services for Substance Abuse Treatment (ICD-10-PCS; principal; 2020-11-20)
DX: F10.230 Alcohol dependence with withdrawal, uncomplicated (principal); F11.20 Opioid dependence, uncomplicated; F14.20 Cocaine dependence, uncomplicated; F17.210 Nicotine dependence, cigarettes, uncomplicated; F19.280 Other psychoactive substance dependence with psychoactive substance-induced anxiety disorder; F19.282 Other psychoactive substance dependence with psychoactive substance-induced sleep disorder; F19.24 Other psychoactive substance dependence with psychoactive substance-induced mood disorder; F41.1 Generalized anxiety disorder; F31.9 Bipolar disorder, unspecified; F39 Unspecified mood [affective] disorder; B18.2 Chronic viral hepatitis C; Z87.19 Personal history of other diseases of the digestive system; Z87.81 Personal history of (healed) traumatic fracture
CPT/HCPCS: 36415; 80053; 85027; 86780; 93005; 93010; C9803; J2794; U0003; U0005

== ENCOUNTER 2020-12-21 10:20 | Inpatient (IN) | payer OTHER ==
[2020-12-21 12:10] VITALS: BMI 22.3
[2020-12-21] MEDS ORDERED: MAG HYDROX/AL HYDROX/SIMETH 30 ML UNIT-DOSE CUP PO PRN (13:18)
[2020-12-21] MEDS ORDERED: NICOTINE POLACRILEX 2 MG GUM BUC PRN (13:18)
[2020-12-21] MEDS ORDERED: METHOCARBAMOL 500 MG TABLET PO PRN (13:18)
[2020-12-21] MEDS ORDERED: ACETAMINOPHEN 325 MG TABLET (FP) PO PRN ×2 (13:18)
[2020-12-21] MEDS ORDERED: ONDANSETRON *ODT* 4 MG TABLET SL PRN (13:18)
[2020-12-21] MEDS ORDERED: BISMUTH SUBSALICYLATE 524 MG/30 ML PO PRN (13:18)
[2020-12-21] MEDS ORDERED: MAGNESIUM CITRATE 300 ML BOTTLE PO PRN (13:18)
[2020-12-21] MEDS ORDERED: MAGNESIUM HYDROX 2400MG/30ML ORAL SUSPENSION 30 ML CUP PO PRN (13:18)
[2020-12-21] MEDS ORDERED: LORazepam 1 MG TABLET PO PRN (13:18)
[2020-12-21] MEDS ORDERED: IBUPROFEN 400 MG TABLET (FP) PO PRN (13:18)
[2020-12-21] MEDS ORDERED: MENTHOL/PHENOL 1 EACH UD MM PRN (13:18)
[2020-12-21] MEDS: PRENATAL VITAMINS W/ FOLIC ACID TABLET (FP) PO SCH (14:31)
[2020-12-21] MEDS: NICOTINE 14 MG/24 HOURS TOPICAL PATCH TD SCH (14:31)
[2020-12-21] MEDS: hydrOXYzine PAMOATE 25 MG CAPSULE (FP) PO SCH ×3 (14:33→22:18)
[2020-12-21 15:53] LABS: CALCIUM 8.1 mg/dL (8.5-10.1); HEMATOCRIT 31.5 % (35.4-49); MCH 22.4 pg (25.7-33.7); MCHC 31.8 g/dl (32.0-35.9); MEAN CELL VOLUME 70.3 fl (80-96); MEAN PLT VOLUME 8.5 fl (7.5-11.1); PLATELET COUNT 134 10^3/uL (134-434); RBC 4.48 M/mm3 (4.00-5.60); RDW 15.6 % (11.9-15.9); WHITE BLOOD COUNT 4.4 K/mm3 (4.0-10.0)
[2020-12-21 15:55] LABS: ALBUMIN 3.9 g/dl (3.4-5.0); BLOOD UREA NITROGEN 8.5 mg/dL (7-18)
[2020-12-21 15:58] LABS: CREATININE 0.8 mg/dL (0.55-1.3)
[2020-12-21 15:59] LABS: BILIRUBIN,TOTAL 0.5 mg/dL (0.2-1); TOT PROT 8.1 g/dl (6.4-8.2)
[2020-12-21] MEDS: LORazepam 2 MG TABLET PO SCH ×2 (17:39→22:18)
[2020-12-21] MEDS: THIAMINE HCL 100 MG TABLET (FP) PO SCH (22:18)
[2020-12-21] MEDS: MELATONIN 5 MG TABLETS PO SCH (22:18)
[2020-12-21 23:12] LABS: HIV INTERPRETATION NEGATIVE (NEGATIVE)
[2020-12-22] MEDS: hydrOXYzine PAMOATE 25 MG CAPSULE (FP) PO SCH ×5 (06:03→22:20)
[2020-12-22] MEDS: methaDONE HCL 40 MG DISPERSABLE TABLET PO SCH (06:03)
[2020-12-22] MEDS: LORazepam 2 MG TABLET PO SCH ×4 (06:03→22:20)
[2020-12-22] MEDS: NICOTINE 14 MG/24 HOURS TOPICAL PATCH TD SCH (10:29)
[2020-12-22] MEDS: PRENATAL VITAMINS W/ FOLIC ACID TABLET (FP) PO SCH (10:29)
[2020-12-22] MEDS: FERROUS SO4 325 MG TABLET (FP) PO SCH (10:29)
[2020-12-22] MEDS: CLOTRIMAZOLE 1% CREAM 15 GM TUBE TP SCH ×2 (11:27→22:20)
[2020-12-22] MEDS: risperiDONE 1 MG TABLET PO SCH (22:20)
[2020-12-22] MEDS: traZODone HCL 100 MG TABLET (FP) PO SCH (22:20)
[2020-12-22] MEDS: MELATONIN 5 MG TABLETS PO SCH (22:20)
[2020-12-22] MEDS: THIAMINE HCL 100 MG TABLET (FP) PO SCH (22:20)
[2020-12-23] MEDS: hydrOXYzine PAMOATE 25 MG CAPSULE (FP) PO SCH ×5 (05:36→22:13)
[2020-12-23] MEDS: LORazepam 1 MG TABLET PO SCH ×4 (05:36→22:13)
[2020-12-23] MEDS: methaDONE HCL 40 MG DISPERSABLE TABLET PO SCH (05:36)
[2020-12-23] MEDS: PRENATAL VITAMINS W/ FOLIC ACID TABLET (FP) PO SCH (10:24)
[2020-12-23] MEDS: CITALOPRAM HYDROBROMIDE 10 MG TABLET PO SCH (10:24)
[2020-12-23] MEDS: risperiDONE 1 MG TABLET PO SCH ×2 (10:24→22:13)
[2020-12-23] MEDS: CLOTRIMAZOLE 1% CREAM 15 GM TUBE TP SCH ×2 (10:26→22:14)
[2020-12-23] MEDS: NICOTINE 14 MG/24 HOURS TOPICAL PATCH TD SCH (10:26)
[2020-12-23] MEDS: FERROUS SO4 325 MG TABLET (FP) PO SCH (10:27)
[2020-12-23] MEDS: THIAMINE HCL 100 MG TABLET (FP) PO SCH (22:13)
[2020-12-23] MEDS: MELATONIN 5 MG TABLETS PO SCH (22:13)
[2020-12-23] MEDS: traZODone HCL 100 MG TABLET (FP) PO SCH (22:13)
[2020-12-24] MEDS ORDERED: LORazepam 0.5 MG TABLET PO PRN
[2020-12-24] MEDS: hydrOXYzine PAMOATE 25 MG CAPSULE (FP) PO SCH ×5 (05:19→22:22)
[2020-12-24] MEDS: methaDONE HCL 40 MG DISPERSABLE TABLET PO SCH (05:19)
[2020-12-24] MEDS: LORazepam 0.5 MG TABLET PO SCH ×4 (05:19→22:22)
[2020-12-24] MEDS: FERROUS SO4 325 MG TABLET (FP) PO SCH (10:36)
[2020-12-24] MEDS: CITALOPRAM HYDROBROMIDE 10 MG TABLET PO SCH (10:37)
[2020-12-24] MEDS: CLOTRIMAZOLE 1% CREAM 15 GM TUBE TP SCH ×2 (10:37→22:22)
[2020-12-24] MEDS: PRENATAL VITAMINS W/ FOLIC ACID TABLET (FP) PO SCH (10:37)
[2020-12-24] MEDS: NICOTINE 14 MG/24 HOURS TOPICAL PATCH TD SCH (10:37)
[2020-12-24] MEDS: risperiDONE 1 MG TABLET PO SCH ×2 (10:37→22:22)
[2020-12-24] MEDS: traZODone HCL 100 MG TABLET (FP) PO SCH (22:22)
[2020-12-24] MEDS: THIAMINE HCL 100 MG TABLET (FP) PO SCH (22:22)
[2020-12-24] MEDS: MELATONIN 5 MG TABLETS PO SCH (22:22)
[2020-12-25] MEDS ORDERED: LORazepam 0.5 MG TABLET PO ONE (05:00)
[2020-12-25] MEDS: methaDONE HCL 40 MG DISPERSABLE TABLET PO SCH (05:41)
[2020-12-25] MEDS: hydrOXYzine PAMOATE 25 MG CAPSULE (FP) PO SCH ×3 (05:41→15:00)
[2020-12-25] MEDS: FERROUS SO4 325 MG TABLET (FP) PO SCH (10:21)
[2020-12-25] MEDS: PRENATAL VITAMINS W/ FOLIC ACID TABLET (FP) PO SCH (10:21)
[2020-12-25] MEDS: CITALOPRAM HYDROBROMIDE 10 MG TABLET PO SCH (10:21)
[2020-12-25] MEDS: NICOTINE 14 MG/24 HOURS TOPICAL PATCH TD SCH (10:23)
[2020-12-25] MEDS: risperiDONE 1 MG TABLET PO SCH (10:23)
[2020-12-25] MEDS: CLOTRIMAZOLE 1% CREAM 15 GM TUBE TP SCH (11:29)
[2020-12-25 18:06] VITALS: BP 95/57; PULSE 73; TEMP 97.8
== END 2020-12-25 17:38 | disposition home or self-care (01) | DRG 773 ==
LOC: YASAS 10:20 → Y3N 13:55
PROVIDERS: ADMIT Allergy & Immunology; ATTEND Allergy & Immunology
PROC: HZ2ZZZZ Detoxification Services for Substance Abuse Treatment (ICD-10-PCS; principal; 2020-12-21)
DX: F10.230 Alcohol dependence with withdrawal, uncomplicated (principal); F11.20 Opioid dependence, uncomplicated; F14.20 Cocaine dependence, uncomplicated; F17.210 Nicotine dependence, cigarettes, uncomplicated; F19.280 Other psychoactive substance dependence with psychoactive substance-induced anxiety disorder; F19.282 Other psychoactive substance dependence with psychoactive substance-induced sleep disorder; F19.24 Other psychoactive substance dependence with psychoactive substance-induced mood disorder; F31.9 Bipolar disorder, unspecified; F41.1 Generalized anxiety disorder; D64.9 Anemia, unspecified; B35.3 Tinea pedis; B18.2 Chronic viral hepatitis C; R74.8 Abnormal levels of other serum enzymes
CPT/HCPCS: 36415; 80053; 85027; 86780; 87389; C9803; J2794; Q0162; U0003; U0005

== ENCOUNTER 2021-09-04 17:02 | Inpatient (IN) | payer OTHER ==
[2021-09-04] MEDS ORDERED: NICOTINE POLACRILEX 2 MG GUM BUC PRN (21:28)
[2021-09-04] MEDS ORDERED: IBUPROFEN 400 MG TABLET (FP) PO PRN (21:28)
[2021-09-04] MEDS ORDERED: METHOCARBAMOL 500 MG TABLET PO PRN (21:28)
[2021-09-04] MEDS ORDERED: BISMUTH SUBSALICYLATE 524 MG/30 ML PO PRN (21:28)
[2021-09-04] MEDS ORDERED: P-EPHED 60MG/TRIPROLIDI 2.5MG TABLET PO PRN (21:28)
[2021-09-04] MEDS ORDERED: ACETAMINOPHEN 325 MG TABLET (FP) PO PRN ×2 (21:28)
[2021-09-04] MEDS ORDERED: DICYCLOMINE HCL 10 MG CAPSULE PO PRN (21:28)
[2021-09-04] MEDS ORDERED: MAG HYDROX/AL HYDROX/SIMETH 30 ML UNIT-DOSE CUP PO PRN (21:28)
[2021-09-04] MEDS ORDERED: MAGNESIUM HYDROX 2400MG/30ML ORAL SUSPENSION 30 ML CUP PO PRN (21:28)
[2021-09-04] MEDS ORDERED: PROCHLORPERAZINE MALEATE 5 MG TABLET PO PRN (21:28)
[2021-09-04] MEDS ORDERED: guaiFENesin 200 MG/10 ML 10 ML UNIT-DOSE CUPS PO PRN (21:28)
[2021-09-04] MEDS ORDERED: NALOXONE HCL 0.4 MG/ML VIAL IM PRN (21:28)
[2021-09-04] MEDS ORDERED: MENTHOL/PHENOL 1 EACH UD MM PRN (21:28)
[2021-09-04] MEDS ORDERED: LOPERAMIDE HCL 2 MG CAPSULE PO PRN (21:28)
[2021-09-04] MEDS ORDERED: MAGNESIUM CITRATE 300 ML BOTTLE PO PRN (21:28)
[2021-09-04] MEDS ORDERED: THIAMINE HCL 100 MG TABLET (FP) PO SCH (22:00)
[2021-09-04] MEDS ORDERED: MELATONIN 5 MG TABLETS PO SCH (22:00)
[2021-09-05] MEDS ORDERED: PRENATAL VITAMINS W/ FOLIC ACID TABLET (FP) PO SCH (10:00)
[2021-09-05] MEDS ORDERED: NICOTINE 14 MG/24 HOURS TOPICAL PATCH TD SCH (10:00)
[2021-09-05 10:43] VITALS: BP 129/82; PULSE 61; TEMP 97
[2021-09-07 00:06] LABS: SARS-CoV-2 NAA Not Detected (Not Detected)
== END 2021-09-05 11:15 | disposition home or self-care (01) | DRG 773 ==
LOC: YASAS 17:02 → UNDOADMIN 21:52 → Y6N 21:52 → UNDODISIN 09-05 11:15
PROVIDERS: ADMIT Allergy & Immunology; ATTEND Allergy & Immunology
PROC: HZ2ZZZZ Detoxification Services for Substance Abuse Treatment (ICD-10-PCS; principal; 2021-09-04)
DX: F10.230 Alcohol dependence with withdrawal, uncomplicated (principal); F11.20 Opioid dependence, uncomplicated; F17.213 Nicotine dependence, cigarettes, with withdrawal; F31.9 Bipolar disorder, unspecified; F41.9 Anxiety disorder, unspecified; F19.282 Other psychoactive substance dependence with psychoactive substance-induced sleep disorder; F19.24 Other psychoactive substance dependence with psychoactive substance-induced mood disorder; B18.2 Chronic viral hepatitis C; R63.8 Other symptoms and signs concerning food and fluid intake; Z87.19 Personal history of other diseases of the digestive system
CPT/HCPCS: 93005; 93010; C9803-CS; U0003; U0005

== ENCOUNTER 2023-01-31 19:39 | Inpatient (IN) | payer OTHER ==
[2023-01-31] MEDS ORDERED: IBUPROFEN 400 MG TABLET (FP) PO PRN (21:29)
[2023-01-31] MEDS ORDERED: LOPERAMIDE HCL 2 MG CAPSULE PO PRN (21:29)
[2023-01-31] MEDS ORDERED: DICYCLOMINE HCL 10 MG CAPSULE PO PRN (21:29)
[2023-01-31] MEDS ORDERED: POLYETHYLENE GLYCOL (HEALTHYLAX) 3350 17 GM PACKET PO PRN (21:29)
[2023-01-31] MEDS ORDERED: guaiFENesin 600 MG TABLET.ER (FP) PO PRN (21:29)
[2023-01-31] MEDS ORDERED: MAG HYDROX/AL HYDROX/SIMETH 30 ML UNIT-DOSE CUP PO PRN (21:29)
[2023-01-31] MEDS ORDERED: MAGNESIUM HYDROX 2400MG/30ML ORAL SUSPENSION 30 ML CUP PO PRN (21:29)
[2023-01-31] MEDS ORDERED: BENZONATATE 200 MG CAPSULE PO PRN (21:29)
[2023-01-31] MEDS ORDERED: NICOTINE POLACRILEX 2 MG GUM BUC PRN (21:29)
[2023-01-31] MEDS ORDERED: NALOXONE HCL 0.4 MG/ML VIAL IM PRN (21:29)
[2023-01-31] MEDS ORDERED: BISMUTH SUBSALICYLATE 524 MG/30 ML PO PRN (21:29)
[2023-01-31] MEDS ORDERED: ACETAMINOPHEN 325 MG TABLET (FP) PO PRN (21:29)
[2023-01-31] MEDS ORDERED: P-EPHED 60MG/TRIPROLIDI 2.5MG TABLET PO PRN (21:29)
[2023-01-31] MEDS ORDERED: BENZOCAINE/MENTHOL (CHLORASEPTIC ) LOZENGE MM PRN (21:29)
[2023-01-31] MEDS ORDERED: NALOXONE HCL (KLOXXADO) 8 MG SPRAY NS PRN (21:29)
[2023-01-31] MEDS ORDERED: ONDANSETRON *ODT* 4 MG TABLET SL PRN (21:29)
[2023-01-31] MEDS ORDERED: MELATONIN 5 MG TABLETS PO SCH (22:00)
[2023-01-31] MEDS: THIAMINE HCL 100 MG TABLET (FP) PO SCH (23:19)
[2023-01-31] MEDS: METHOCARBAMOL 500 MG TABLET PO PRN (23:19)
[2023-02-01] MEDS ORDERED: methaDONE HCL 10 MG TABLET PO SCH (08:30)
[2023-02-01] MEDS ORDERED: chlordiazePOXIDE HCL 25 MG CAPSULE PO PRN (09:17)
[2023-02-01] MEDS: chlordiazePOXIDE HCL 25 MG CAPSULE PO SCH ×3 (10:07→22:12)
[2023-02-01] MEDS: PRENATAL VITAMINS W/ FOLIC ACID TABLET (FP) PO SCH (10:07)
[2023-02-01 10:10] LABS: POTASSIUM 4.4 mmol/L (3.5-5.1)
[2023-02-01 10:11] LABS: HEMATOCRIT 31.8 % (35.4-49); HEMOGLOBIN 10.1 GM/dL (11.7-16.9); MCHC 31.9 g/dl (32.0-35.9); MEAN CELL VOLUME 68.9 fl (80-96); MEAN PLT VOLUME 8.1 fl (7.5-11.1); PLATELET COUNT 214 10^3/uL (134-434); RBC 4.61 M/mm3 (4.00-5.60); RDW 17.3 % (11.9-15.9); WHITE BLOOD COUNT 3.1 K/mm3 (4.0-10.0)
[2023-02-01 10:26] LABS: ALBUMIN 3.2 g/dl (3.4-5.0); CALCIUM 8.3 mg/dL (8.5-10.1)
[2023-02-01 10:27] LABS: BLOOD UREA NITROGEN 8.5 mg/dL (7-18)
[2023-02-01 10:29] LABS: CREATININE 0.8 mg/dL (0.55-1.3)
[2023-02-01 10:31] LABS: BILIRUBIN,TOTAL 0.5 mg/dL (0.2-1); TOT PROT 7.3 g/dl (6.4-8.2)
[2023-02-01] MEDS ORDERED: CITALOPRAM HYDROBROMIDE 20 MG TABLET PO SCH (11:15)
[2023-02-01] MEDS: CITALOPRAM HYDROBROMIDE 20 MG TABLET PO SCH (12:42)
[2023-02-01 13:32] LABS: HIV INTERPRETATION NEGATIVE (NEGATIVE)
[2023-02-01] MEDS: risperiDONE 1 MG TABLET PO SCH (22:12)
[2023-02-01] MEDS: THIAMINE HCL 100 MG TABLET (FP) PO SCH (22:12)
[2023-02-01] MEDS: QUEtiapine FUMARATE 50 MG TABLET PO SCH (22:12)
[2023-02-02] MEDS: chlordiazePOXIDE HCL 25 MG CAPSULE PO SCH ×2 (05:40→10:30)
[2023-02-02] MEDS: PRENATAL VITAMINS W/ FOLIC ACID TABLET (FP) PO SCH (10:30)
[2023-02-02] MEDS: CITALOPRAM HYDROBROMIDE 20 MG TABLET PO SCH (11:33)
[2023-02-02] MEDS ORDERED: LORazepam 1 MG TABLET PO PRN (11:34)
[2023-02-02] MEDS: LORazepam 2 MG TABLET PO SCH ×2 (17:21→22:18)
[2023-02-02] MEDS: IBUPROFEN 600 MG TABLET (FP) PO PRN (17:38)
[2023-02-02] MEDS: risperiDONE 1 MG TABLET PO SCH (22:17)
[2023-02-02] MEDS: METHOCARBAMOL 500 MG TABLET PO PRN (22:17)
[2023-02-02] MEDS: THIAMINE HCL 100 MG TABLET (FP) PO SCH (22:17)
[2023-02-02] MEDS: QUEtiapine FUMARATE 50 MG TABLET PO SCH (22:17)
[2023-02-03] MEDS ORDERED: chlordiazePOXIDE HCL 25 MG CAPSULE PO SCH (05:00)
[2023-02-03] MEDS: LORazepam 1 MG TABLET PO SCH ×4 (05:32→22:32)
[2023-02-03] MEDS: LORazepam 2 MG TABLET PO SCH (10:03)
[2023-02-03] MEDS: PRENATAL VITAMINS W/ FOLIC ACID TABLET (FP) PO SCH (10:08)
[2023-02-03] MEDS: CITALOPRAM HYDROBROMIDE 20 MG TABLET PO SCH (10:08)
[2023-02-03] MEDS: METHOCARBAMOL 500 MG TABLET PO PRN (22:31)
[2023-02-03] MEDS: risperiDONE 1 MG TABLET PO SCH (22:31)
[2023-02-03] MEDS: THIAMINE HCL 100 MG TABLET (FP) PO SCH (22:31)
[2023-02-03] MEDS: QUEtiapine FUMARATE 50 MG TABLET PO SCH (22:31)
[2023-02-04] MEDS ORDERED: chlordiazePOXIDE HCL 10 MG CAPSULE PO PRN
[2023-02-04] MEDS ORDERED: LORazepam 0.5 MG TABLET PO PRN
[2023-02-04] MEDS ORDERED: chlordiazePOXIDE HCL 10 MG CAPSULE PO SCH (05:00)
[2023-02-04] MEDS: LORazepam 0.5 MG TABLET PO SCH ×4 (05:08→22:07)
[2023-02-04] MEDS: PRENATAL VITAMINS W/ FOLIC ACID TABLET (FP) PO SCH (10:31)
[2023-02-04] MEDS: CITALOPRAM HYDROBROMIDE 20 MG TABLET PO SCH (10:32)
[2023-02-04 10:37] LABS: BILIRUBIN,DIRECT 0.2 mg/dL (0.0-0.2)
[2023-02-04 10:39] LABS: BILIRUBIN,TOTAL 0.4 mg/dL (0.2-1); TOT PROT 7.2 g/dl (6.4-8.2)
[2023-02-04] MEDS: METHOCARBAMOL 500 MG TABLET PO PRN (17:38)
[2023-02-04] MEDS: IBUPROFEN 600 MG TABLET (FP) PO PRN (20:18)
[2023-02-04] MEDS: THIAMINE HCL 100 MG TABLET (FP) PO SCH (22:07)
[2023-02-04] MEDS: QUEtiapine FUMARATE 50 MG TABLET PO SCH (22:07)
[2023-02-04] MEDS: risperiDONE 1 MG TABLET PO SCH (22:07)
[2023-02-05] MEDS ORDERED: LORazepam 0.5 MG TABLET PO ONE (05:00)
[2023-02-05] MEDS ORDERED: chlordiazePOXIDE HCL 10 MG CAPSULE PO SCH (05:00)
[2023-02-05 09:47] VITALS: BP 114/68; PULSE 64; RESP 16; TEMP 97.9
[2023-02-05] MEDS: CITALOPRAM HYDROBROMIDE 20 MG TABLET PO SCH (10:25)
[2023-02-05] MEDS: PRENATAL VITAMINS W/ FOLIC ACID TABLET (FP) PO SCH (10:25)
[2023-02-06] MEDS ORDERED: chlordiazePOXIDE HCL 10 MG CAPSULE PO ONE (05:00)
== END 2023-02-05 11:05 | disposition home or self-care (01) | DRG 773 ==
LOC: YASAS 19:39 → Y3N 22:09
PROVIDERS: ADMIT Allergy & Immunology; ATTEND Surgery
PROC: HZ2ZZZZ Detoxification Services for Substance Abuse Treatment (ICD-10-PCS; principal; 2023-01-31)
DX: F10.230 Alcohol dependence with withdrawal, uncomplicated (principal); F11.20 Opioid dependence, uncomplicated; F14.20 Cocaine dependence, uncomplicated; F17.210 Nicotine dependence, cigarettes, uncomplicated; F10.220 Alcohol dependence with intoxication, uncomplicated; F19.282 Other psychoactive substance dependence with psychoactive substance-induced sleep disorder; D64.9 Anemia, unspecified; R74.01 Elevation of levels of liver transaminase levels; R74.8 Abnormal levels of other serum enzymes; Z87.19 Personal history of other diseases of the digestive system; Z86.19 Personal history of other infectious and parasitic diseases; Z86.59 Personal history of other mental and behavioral disorders
CPT/HCPCS: 36415; 80053; 80076; 85027; 86780; 87389; 87635; Q0162

== ENCOUNTER 2024-01-05 01:36 | Inpatient (IN) | payer OTHER ==
[2024-01-05 02:33] VITALS: BMI 19.0
[2024-01-05] MEDS ORDERED: NICOTINE POLACRILEX 2 MG GUM BUC PRN (05:42)
[2024-01-05] MEDS ORDERED: NALOXONE HCL 0.4 MG/ML VIAL IM PRN (05:42)
[2024-01-05] MEDS ORDERED: IBUPROFEN 600 MG TABLET (FP) PO PRN (05:42)
[2024-01-05] MEDS ORDERED: MAG HYDROX/AL HYDROX/SIMETH 30 ML UNIT-DOSE CUP PO PRN (05:42)
[2024-01-05] MEDS ORDERED: NALOXONE (NARCAN) HCL 4 MG/0.1 ML SPRAY NS PRN (05:42)
[2024-01-05] MEDS ORDERED: POLYETHYLENE GLYCOL (HEALTHYLAX) 3350 17 GM PACKET PO PRN (05:42)
[2024-01-05] MEDS ORDERED: METHOCARBAMOL 500 MG TABLET PO PRN (05:42)
[2024-01-05] MEDS ORDERED: IBUPROFEN 400 MG TABLET (FP) PO PRN (05:42)
[2024-01-05] MEDS ORDERED: ONDANSETRON *ODT* 4 MG TABLET SL PRN (05:42)
[2024-01-05] MEDS ORDERED: guaiFENesin 600 MG TABLET.ER (FP) PO PRN (05:42)
[2024-01-05] MEDS ORDERED: BENZOCAINE/MENTHOL (CHLORASEPTIC ) LOZENGE MM PRN (05:42)
[2024-01-05] MEDS ORDERED: BENZONATATE 200 MG CAPSULE PO PRN (05:42)
[2024-01-05] MEDS ORDERED: LOPERAMIDE HCL 2 MG CAPSULE PO PRN (05:42)
[2024-01-05] MEDS ORDERED: MAGNESIUM HYDROX 2400MG/30ML ORAL SUSPENSION 30 ML CUP PO PRN (05:42)
[2024-01-05] MEDS ORDERED: BISMUTH SUBSALICYLATE 524 MG/30 ML PO PRN (05:42)
[2024-01-05] MEDS ORDERED: ACETAMINOPHEN 325 MG TABLET (FP) PO PRN (05:42)
[2024-01-05] MEDS ORDERED: methaDONE HCL 10 MG TABLET PO ONE (08:30)
[2024-01-05] MEDS: NICOTINE 21 MG/24 HOURS TOPICAL PATCH TD SCH (09:44)
[2024-01-05] MEDS: PRENATAL VITAMINS W/ FOLIC ACID TABLET (FP) PO SCH (09:44)
[2024-01-05] MEDS: LORazepam 2 MG TABLET PO SCH (10:16)
[2024-01-05] MEDS: LORazepam 1 MG TABLET PO PRN (13:26)
[2024-01-05] MEDS ORDERED: MELATONIN 5 MG TABLETS PO SCH (22:00)
[2024-01-05] MEDS: THIAMINE 100 MG TABLET PO SCH (22:23)
[2024-01-05] MEDS: risperiDONE 1 MG TABLET PO SCH (22:23)
[2024-01-05] MEDS: QUEtiapine FUMARATE 50 MG TABLET PO SCH (22:23)
[2024-01-06 11:45] LABS: HEMOGLOBIN 10.8 GM/dL (11.7-16.9); MCHC 31.8 g/dl (32.0-35.9); MEAN CELL VOLUME 69.3 fl (80-96); PLATELET COUNT 245 10^3/uL (134-434); RBC 4.92 M/mm3 (4.00-5.60); RDW 16.1 % (11.9-15.9); WHITE BLOOD COUNT 3.8 K/mm3 (4.0-10.0)
[2024-01-06 11:46] LABS: POTASSIUM 4.7 mmol/L (3.5-5.1)
[2024-01-06 11:50] LABS: ALBUMIN 3.2 g/dl (3.4-5.0); CALCIUM 9.1 mg/dL (8.5-10.1)
[2024-01-06 11:51] LABS: BLOOD UREA NITROGEN 14.8 mg/dL (7-18)
[2024-01-06 11:54] LABS: BILIRUBIN,TOTAL 0.6 mg/dL (0.2-1); CREATININE 0.8 mg/dL (0.55-1.3); TOT PROT 7.8 g/dl (6.4-8.2)
[2024-01-07] MEDS: LORazepam 1 MG TABLET PO SCH (05:29)
[2024-01-07 20:10] VITALS: BP 104/72; PULSE 98; RESP 16
[2024-01-07 20:56] VITALS: TEMP 98.7
[2024-01-08] MEDS ORDERED: LORazepam 0.5 MG TABLET PO PRN
[2024-01-08] MEDS ORDERED: LORazepam 0.5 MG TABLET PO SCH (05:00)
[2024-01-09] MEDS ORDERED: LORazepam 0.5 MG TABLET PO ONE (05:00)
== END 2024-01-07 20:45 | disposition left against medical advice (07) | DRG 770 ==
LOC: YASAS 01:36 → Y6N 05:24
PROVIDERS: ADMIT Allergy & Immunology; ATTEND Surgery
PROC: HZ2ZZZZ Detoxification Services for Substance Abuse Treatment (ICD-10-PCS; principal; 2024-01-05)
DX: F10.230 Alcohol dependence with withdrawal, uncomplicated (principal); F11.20 Opioid dependence, uncomplicated; F14.20 Cocaine dependence, uncomplicated; F17.210 Nicotine dependence, cigarettes, uncomplicated; F25.9 Schizoaffective disorder, unspecified; F31.9 Bipolar disorder, unspecified; F19.982 Other psychoactive substance use, unspecified with psychoactive substance-induced sleep disorder; F19.94 Other psychoactive substance use, unspecified with psychoactive substance-induced mood disorder; M54.59 Other low back pain; G89.29 Other chronic pain; B18.2 Chronic viral hepatitis C; K29.70 Gastritis, unspecified, without bleeding; K85.90 Acute pancreatitis without necrosis or infection, unspecified; Z91.51 Personal history of suicidal behavior; Z56.0 Unemployment, unspecified
CPT/HCPCS: 36415; 80053; 80305; 80307; 85027; 86780; 93005; 93010

== ENCOUNTER 2024-08-24 20:37 | Inpatient (IN) | payer OTHER ==
[2024-08-24 21:10] VITALS: BMI 20.1
[2024-08-24] MEDS ORDERED: MAGNESIUM HYDROX 2400MG/30ML ORAL SUSPENSION 30 ML CUP PO PRN (21:55)
[2024-08-24] MEDS ORDERED: LOPERAMIDE HCL 2 MG CAPSULE PO PRN (21:55)
[2024-08-24] MEDS ORDERED: guaiFENesin 600 MG TABLET.ER (FP) PO PRN (21:55)
[2024-08-24] MEDS ORDERED: POLYETHYLENE GLYCOL (HEALTHYLAX) 3350 17 GM PACKET PO PRN (21:55)
[2024-08-24] MEDS ORDERED: BENZONATATE 200 MG CAPSULE PO PRN (21:55)
[2024-08-24] MEDS ORDERED: NICOTINE POLACRILEX 2 MG LOZENGE BC PRN (21:55)
[2024-08-24] MEDS ORDERED: P-EPHED 60MG/TRIPROLIDI 2.5MG TABLET PO PRN (21:55)
[2024-08-24] MEDS ORDERED: NICOTINE POLACRILEX 2 MG GUM BUC PRN (21:55)
[2024-08-24] MEDS ORDERED: BISMUTH SUBSALICYLATE 524 MG/30 ML PO PRN (21:55)
[2024-08-24] MEDS ORDERED: IBUPROFEN 400 MG TABLET (FP) PO PRN (21:55)
[2024-08-24] MEDS ORDERED: BENZOCAINE/MENTHOL (CHLORASEPTIC ) LOZENGE MM PRN (21:55)
[2024-08-24] MEDS ORDERED: NALOXONE (NARCAN) HCL 4 MG/0.1 ML SPRAY NS PRN (21:55)
[2024-08-24] MEDS ORDERED: MAG HYDROX/AL HYDROX/SIMETH 30 ML UNIT-DOSE CUP PO PRN (21:55)
[2024-08-24] MEDS ORDERED: DICYCLOMINE HCL 10 MG CAPSULE PO PRN (21:55)
[2024-08-24] MEDS ORDERED: MELATONIN 5 MG TABLETS ONE (22:33)
[2024-08-24] MEDS: THIAMINE 100 MG TABLET PO SCH (22:38)
[2024-08-24] MEDS: MELATONIN 5 MG TABLETS PO SCH (22:38)
[2024-08-25 09:08] LABS: CHLORIDE 98 mmol/L (98-107); POTASSIUM 4.1 mmol/L (3.5-5.1); SODIUM 133 mmol/L (136-145)
[2024-08-25] MEDS ORDERED: methaDONE HCL 10 MG TABLET PO PRN (09:11)
[2024-08-25] MEDS ORDERED: chlordiazePOXIDE HCL 25 MG CAPSULE PO PRN (09:13)
[2024-08-25 09:30] LABS: ALBUMIN 3.6 g/dl (3.4-5.0); ANION GAP 9 mmol/L (4-13); BLOOD UREA NITROGEN 11.4 mg/dL (7-18); CALCIUM 8.8 mg/dL (8.5-10.1); CO2 26 mmol/L (21-32)
[2024-08-25] MEDS: chlordiazePOXIDE HCL 25 MG CAPSULE PO ONE (09:30)
[2024-08-25 09:31] LABS: CREATININE 0.9 mg/dL (0.55-1.3); GLUCOSE,RANDOM 104 mg/dL (74-106); SGPT/ALT 17 U/L (13-61)
[2024-08-25 09:32] LABS: BILIRUBIN,TOTAL 0.7 mg/dL (0.2-1)
[2024-08-25 09:33] LABS: ALK PHOS 132 U/L (45-117)
[2024-08-25 09:38] LABS: SGOT/AST 32 U/L (15-37)
[2024-08-25] MEDS ORDERED: methaDONE HCL 10 MG TABLET PO ONE ×2 (09:40→09:45)
[2024-08-25 09:53] LABS: HEMATOCRIT 32.8 % (40.1-51.0); HEMOGLOBIN 10.2 g/dL (13.7-17.5); MCHC 31.1 g/dl (32.3-36.5); MEAN CELL VOLUME 69.1 fl (79.0-92.2); PLATELET COUNT # 245 x10^3/uL (163-337); RDW 17.2 % (12.2-16.1)
[2024-08-25] MEDS: PRENATAL VITAMINS W/ FOLIC ACID TABLET (FP) PO SCH (10:06)
[2024-08-25] MEDS: ASPIRIN COATED 81 MG TABLET.EC PO SCH (10:07)
[2024-08-25] MEDS: chlordiazePOXIDE HCL 25 MG CAPSULE PO SCH (10:08)
[2024-08-25] MEDS: ONDANSETRON *ODT* 4 MG TABLET SL PRN (10:10)
[2024-08-25] MEDS: METHOCARBAMOL 500 MG TABLET PO PRN (10:52)
[2024-08-25] MEDS: GABAPENTIN 300 MG CAPSULE PO SCH (13:15)
[2024-08-25] MEDS: IBUPROFEN 600 MG TABLET (FP) PO PRN (17:07)
[2024-08-25] MEDS: QUEtiapine FUMARATE 100 MG TABLET (FP) PO SCH (21:28)
[2024-08-25] MEDS: risperiDONE 2 MG TABLET PO SCH (21:28)
[2024-08-26] MEDS: chlordiazePOXIDE HCL 25 MG CAPSULE PO SCH (05:59)
[2024-08-26] MEDS ORDERED: methaDONE HCL 10 MG TABLET PO SCH (06:00)
[2024-08-26] MEDS: CITALOPRAM HYDROBROMIDE 20 MG TABLET PO SCH (10:10)
[2024-08-26] MEDS: ACETAMINOPHEN 325 MG TABLET (FP) PO PRN (15:00)
[2024-08-26] MEDS: CYPROHEPTADINE HCL 4 MG TABLET PO SCH (17:16)
[2024-08-26] MEDS: risperiDONE 3 MG TABLET PO SCH (22:36)
[2024-08-27] MEDS: chlordiazePOXIDE HCL 10 MG CAPSULE PO SCH (05:47)
[2024-08-27] MEDS ORDERED: QUEtiapine FUMARATE 50 MG TABLET PO SCH (22:00)
[2024-08-27] MEDS: risperiDONE 1 MG TABLET PO SCH (22:00)
[2024-08-28] MEDS ORDERED: chlordiazePOXIDE HCL 10 MG CAPSULE PO SCH (05:00)
[2024-08-28] MEDS: QUEtiapine FUMARATE 100 MG TABLET (FP) PO SCH (22:11)
[2024-08-29] MEDS ORDERED: chlordiazePOXIDE HCL 10 MG CAPSULE PO ONE (05:00)
[2024-08-29 08:49] VITALS: BP 130/89; PULSE 88; RESP 16; TEMP 97.6
== END 2024-08-29 09:09 | disposition home or self-care (01) | DRG 773 ==
LOC: YASAS 20:37 → Y6N 22:20
PROVIDERS: ADMIT Allergy & Immunology; ATTEND Allergy & Immunology
PROC: HZ2ZZZZ Detoxification Services for Substance Abuse Treatment (ICD-10-PCS; principal; 2024-08-24)
DX: F10.230 Alcohol dependence with withdrawal, uncomplicated (principal); F11.20 Opioid dependence, uncomplicated; F14.20 Cocaine dependence, uncomplicated; F17.210 Nicotine dependence, cigarettes, uncomplicated; F31.9 Bipolar disorder, unspecified; F19.282 Other psychoactive substance dependence with psychoactive substance-induced sleep disorder; F19.24 Other psychoactive substance dependence with psychoactive substance-induced mood disorder; F20.9 Schizophrenia, unspecified; B18.2 Chronic viral hepatitis C
CPT/HCPCS: 36415; 80053; 80305; 80307; 85027; 86780; 93005; 93010; Q0162

== ENCOUNTER 2024-09-09 09:49 | Inpatient (IN) | payer OTHER ==
[2024-09-09] MEDS ORDERED: IBUPROFEN 400 MG TABLET (FP) PO PRN (10:41)
[2024-09-09] MEDS ORDERED: ACETAMINOPHEN 325 MG TABLET (FP) PO PRN (10:41)
[2024-09-09] MEDS ORDERED: guaiFENesin 600 MG TABLET.ER (FP) PO PRN (10:41)
[2024-09-09] MEDS ORDERED: MAG HYDROX/AL HYDROX/SIMETH 30 ML UNIT-DOSE CUP PO PRN (10:41)
[2024-09-09] MEDS ORDERED: LOPERAMIDE HCL 2 MG CAPSULE PO PRN (10:41)
[2024-09-09] MEDS ORDERED: hydrOXYzine PAMOATE 25 MG CAPSULE (FP) PO PRN (10:41)
[2024-09-09] MEDS ORDERED: BENZONATATE 200 MG CAPSULE PO PRN (10:41)
[2024-09-09] MEDS ORDERED: NICOTINE POLACRILEX 2 MG GUM BUC PRN (10:41)
[2024-09-09] MEDS ORDERED: NALOXONE (NARCAN) HCL 4 MG/0.1 ML SPRAY NS PRN (10:41)
[2024-09-09 12:40] VITALS: BMI 20.7
[2024-09-09] MEDS: GABAPENTIN 100 MG CAPSULE PO SCH (13:19)
[2024-09-09] MEDS: chlordiazePOXIDE HCL 25 MG CAPSULE PO PRN (13:19)
[2024-09-09] MEDS: chlordiazePOXIDE HCL 25 MG CAPSULE PO SCH (17:26)
[2024-09-09] MEDS ORDERED: QUEtiapine FUMARATE 100 MG TABLET (FP) PO SCH (22:00)
[2024-09-09] MEDS: QUEtiapine FUMARATE 100 MG TABLET (FP) PO SCH (22:04)
[2024-09-09] MEDS: MELATONIN 5 MG TABLETS PO SCH (22:04)
[2024-09-09] MEDS: risperiDONE 1 MG TABLET PO SCH (22:04)
[2024-09-09] MEDS: THIAMINE 100 MG TABLET PO SCH (22:04)
[2024-09-09 22:14] LABS: URINE APPEARANCE CLEAR; URINE BILIRUBIN NEGATIVE (NEGATIVE); URINE COLOR YELLOW; URINE GLUCOSE (UA) NEGATIVE (NEGATIVE); URINE KETONE NEGATIVE (NEGATIVE); URINE LEUK ESTERASE NEGATIVE (NEGATIVE); URINE NITRITE NEGATIVE (NEGATIVE); URINE PROTEIN NEGATIVE (NEGATIVE)
[2024-09-10] MEDS ORDERED: methaDONE HCL 10 MG TABLET PO SCH (06:00)
[2024-09-10] MEDS: PRENATAL VITAMINS W/ FOLIC ACID TABLET (FP) PO SCH (10:08)
[2024-09-10] MEDS: CITALOPRAM HYDROBROMIDE 20 MG TABLET PO SCH (10:08)
[2024-09-10 12:26] LABS: HEMATOCRIT 30.8 % (40.1-51.0); HEMOGLOBIN 9.2 g/dL (13.7-17.5); MCHC 29.9 g/dl (32.3-36.5); MEAN CELL VOLUME 70.6 fl (79.0-92.2); MEAN PLT VOLUME 11.1 fl (9.4-12.4); PLATELET COUNT 296 x10^3/uL (163-337); RDW 17.1 % (12.2-16.1)
[2024-09-10 12:29] LABS: POTASSIUM 3.9 mmol/L (3.5-5.1)
[2024-09-10 12:42] LABS: BLOOD UREA NITROGEN 14.2 mg/dL (7-18); CALCIUM 8.7 mg/dL (8.5-10.1)
[2024-09-10 12:45] LABS: CREATININE 0.9 mg/dL (0.55-1.3)
[2024-09-10 12:47] LABS: BILIRUBIN,TOTAL 0.8 mg/dL (0.2-1); TOT PROT 8.3 g/dl (6.4-8.2)
[2024-09-10] MEDS: IBUPROFEN 600 MG TABLET (FP) PO PRN (13:11)
[2024-09-10] MEDS: METHOCARBAMOL 500 MG TABLET PO PRN (14:17)
[2024-09-10 16:55] LABS: SYPHILIS W/ RPR CONF NON-REACTIVE (NONREACTIVE)
[2024-09-10 17:49] LABS: HCV DIAGNOSTIC IN-HOUSE W/RFLX REACTIVE (NONREACTIVE)
[2024-09-10 18:50] LABS: HIV INTERPRETATION NEGATIVE (NEGATIVE)
[2024-09-10] MEDS: POLYETHYLENE GLYCOL (HEALTHYLAX) 3350 17 GM PACKET PO PRN (22:03)
[2024-09-11] MEDS: chlordiazePOXIDE HCL 25 MG CAPSULE PO SCH (05:36)
[2024-09-11] MEDS: MAGNESIUM HYDROX 2400MG/30ML ORAL SUSPENSION 30 ML CUP PO PRN (18:36)
[2024-09-12] MEDS ORDERED: chlordiazePOXIDE HCL 10 MG CAPSULE PO PRN
[2024-09-12] MEDS: chlordiazePOXIDE HCL 10 MG CAPSULE PO SCH (05:25)
[2024-09-12] MEDS: BENZOCAINE/MENTHOL (CHLORASEPTIC ) LOZENGE MM PRN (10:56)
[2024-09-13] MEDS: chlordiazePOXIDE HCL 10 MG CAPSULE PO SCH (05:11)
[2024-09-14] MEDS: chlordiazePOXIDE HCL 10 MG CAPSULE PO ONE (05:30)
[2024-09-14 09:30] VITALS: BP 113/76; PULSE 77; RESP 17; TEMP 97.6
== END 2024-09-14 12:02 | disposition other institution (70) | DRG 773 ==
LOC: YASAS 09:49 → Y3N 11:12
PROVIDERS: ADMIT Allergy & Immunology; ATTEND Allergy & Immunology
PROC: HZ2ZZZZ Detoxification Services for Substance Abuse Treatment (ICD-10-PCS; principal; 2024-09-09)
DX: F10.230 Alcohol dependence with withdrawal, uncomplicated (principal); F11.20 Opioid dependence, uncomplicated; F14.20 Cocaine dependence, uncomplicated; F17.210 Nicotine dependence, cigarettes, uncomplicated; F31.9 Bipolar disorder, unspecified; F19.24 Other psychoactive substance dependence with psychoactive substance-induced mood disorder; F41.9 Anxiety disorder, unspecified; G47.00 Insomnia, unspecified; B18.2 Chronic viral hepatitis C; Z59.00 Homelessness unspecified
CPT/HCPCS: 36415; 80053; 80305; 80307; 81003; 85027; 86780; 86803; 87389; 87522; 87811; 93005; 93010

== ENCOUNTER 2024-09-14 12:28 | Inpatient (IN) | payer OTHER ==
[2024-09-14] MEDS ORDERED: NICOTINE POLACRILEX 2 MG GUM BUC PRN (14:58)
[2024-09-14] MEDS ORDERED: MAGNESIUM HYDROX 2400MG/30ML ORAL SUSPENSION 30 ML CUP PO PRN (14:58)
[2024-09-14] MEDS ORDERED: NICOTINE POLACRILEX 2 MG LOZENGE BC PRN (14:58)
[2024-09-14] MEDS ORDERED: LOPERAMIDE HCL 2 MG CAPSULE PO PRN (14:58)
[2024-09-14] MEDS ORDERED: POLYETHYLENE GLYCOL (HEALTHYLAX) 3350 17 GM PACKET PO PRN (14:58)
[2024-09-14] MEDS ORDERED: BENZOCAINE/MENTHOL (CHLORASEPTIC ) LOZENGE MM PRN (14:58)
[2024-09-14] MEDS ORDERED: guaiFENesin 600 MG TABLET.ER (FP) PO PRN (14:58)
[2024-09-14] MEDS ORDERED: NALOXONE HCL 0.4 MG/ML VIAL IVPUSH PRN (14:58)
[2024-09-14] MEDS ORDERED: IBUPROFEN 400 MG TABLET (FP) PO PRN (14:58)
[2024-09-14] MEDS ORDERED: BENZONATATE 200 MG CAPSULE PO PRN (14:58)
[2024-09-14] MEDS ORDERED: P-EPHED 60MG/TRIPROLIDI 2.5MG TABLET PO PRN (14:58)
[2024-09-14] MEDS ORDERED: NALOXONE (NARCAN) HCL 4 MG/0.1 ML SPRAY NS PRN (14:58)
[2024-09-14] MEDS ORDERED: MAG HYDROX/AL HYDROX/SIMETH 30 ML UNIT-DOSE CUP PO PRN (14:58)
[2024-09-14] MEDS: IBUPROFEN 600 MG TABLET (FP) PO PRN (18:17)
[2024-09-14] MEDS: risperiDONE 2 MG TABLET PO SCH (21:20)
[2024-09-14] MEDS: MELATONIN 5 MG TABLETS PO SCH (21:20)
[2024-09-14] MEDS: THIAMINE 100 MG TABLET PO SCH (21:20)
[2024-09-14] MEDS: METHOCARBAMOL 500 MG TABLET PO PRN (21:21)
[2024-09-15] MEDS ORDERED: methaDONE HCL 40 MG DISPERSABLE TABLET PO SCH (06:00)
[2024-09-15] MEDS: PRENATAL VITAMINS W/ FOLIC ACID TABLET (FP) PO SCH (10:23)
[2024-09-15] MEDS: CITALOPRAM HYDROBROMIDE 20 MG TABLET PO SCH (11:10)
[2024-09-15] MEDS: ONDANSETRON *ODT* 4 MG TABLET SL PRN (18:00)
[2024-09-15] MEDS: ACETAMINOPHEN 325 MG TABLET (FP) PO PRN (18:01)
[2024-09-15] MEDS: QUEtiapine FUMARATE 100 MG TABLET (FP) PO SCH (21:54)
[2024-09-16] MEDS ORDERED: methaDONE HCL 40 MG DISPERSABLE TABLET PO SCH (06:00)
[2024-09-16 07:09] VITALS: RESP 16; TEMP 98.6
[2024-09-16 15:34] LABS: URINE APPEARANCE CLEAR; URINE BILIRUBIN NEGATIVE (NEGATIVE); URINE COLOR YELLOW; URINE GLUCOSE (UA) NEGATIVE (NEGATIVE); URINE KETONE NEGATIVE (NEGATIVE); URINE LEUK ESTERASE NEGATIVE (NEGATIVE); URINE NITRITE NEGATIVE (NEGATIVE); URINE PROTEIN NEGATIVE (NEGATIVE)
[2024-09-16 16:23] VITALS: BP 123/87; PULSE 84
[2024-09-16] MEDS ORDERED: methaDONE HCL 10 MG TABLET PO SCH (18:00)
[2024-09-17] MEDS ORDERED: methaDONE 40 MG, methaDONE 30 MG PO SCH (06:00)
== END 2024-09-16 15:27 | disposition left against medical advice (07) | DRG 770 ==
LOC: YASAS 12:28 → Y3W 12:29
PROVIDERS: ADMIT Allergy & Immunology; ATTEND Psychiatry & Neurology Pain Medicine
PROC: HZ42ZZZ Group Counseling for Substance Abuse Treatment, Cognitive-Behavioral (ICD-10-PCS; principal; 2024-09-13)
DX: F10.20 Alcohol dependence, uncomplicated (principal); F14.20 Cocaine dependence, uncomplicated; F12.20 Cannabis dependence, uncomplicated; F17.210 Nicotine dependence, cigarettes, uncomplicated; F31.9 Bipolar disorder, unspecified; F41.9 Anxiety disorder, unspecified; B18.2 Chronic viral hepatitis C; M54.50 Low back pain, unspecified; G89.29 Other chronic pain; R50.9 Fever, unspecified; R11.10 Vomiting, unspecified; Z87.19 Personal history of other diseases of the digestive system
CPT/HCPCS: 0241U-QW; 81003; Q0162

== ENCOUNTER 2024-09-24 20:08 | Inpatient (IN) | payer OTHER ==
[2024-09-24 20:34] VITALS: BMI 20.7
[2024-09-24] MEDS ORDERED: BENZOCAINE/MENTHOL (CHLORASEPTIC ) LOZENGE MM PRN (21:34)
[2024-09-24] MEDS ORDERED: BISMUTH SUBSALICYLATE 524 MG/30 ML PO PRN (21:34)
[2024-09-24] MEDS ORDERED: MAG HYDROX/AL HYDROX/SIMETH 30 ML UNIT-DOSE CUP PO PRN (21:34)
[2024-09-24] MEDS ORDERED: POLYETHYLENE GLYCOL (HEALTHYLAX) 3350 17 GM PACKET PO PRN (21:34)
[2024-09-24] MEDS ORDERED: LOPERAMIDE HCL 2 MG CAPSULE PO PRN (21:34)
[2024-09-24] MEDS ORDERED: IBUPROFEN 400 MG TABLET (FP) PO PRN (21:34)
[2024-09-24] MEDS ORDERED: guaiFENesin 600 MG TABLET.ER (FP) PO PRN (21:34)
[2024-09-24] MEDS ORDERED: NICOTINE POLACRILEX 4 MG GUM BUC PRN (21:34)
[2024-09-24] MEDS ORDERED: NALOXONE (NARCAN) HCL 4 MG/0.1 ML SPRAY NS PRN (21:34)
[2024-09-24] MEDS ORDERED: ONDANSETRON *ODT* 4 MG TABLET SL PRN (21:34)
[2024-09-24] MEDS ORDERED: BENZONATATE 200 MG CAPSULE PO PRN (21:34)
[2024-09-24] MEDS ORDERED: DICYCLOMINE HCL 10 MG CAPSULE PO PRN (21:34)
[2024-09-24] MEDS ORDERED: ACETAMINOPHEN 325 MG TABLET (FP) PO PRN (21:34)
[2024-09-24] MEDS: THIAMINE 100 MG TABLET PO SCH (22:09)
[2024-09-24] MEDS: IBUPROFEN 600 MG TABLET (FP) PO PRN (23:11)
[2024-09-25] MEDS ORDERED: methaDONE HCL 10 MG TABLET PO ONE (09:24)
[2024-09-25] MEDS ORDERED: chlordiazePOXIDE HCL 25 MG CAPSULE PO PRN (09:28)
[2024-09-25] MEDS: PRENATAL VITAMINS W/ FOLIC ACID TABLET (FP) PO SCH (10:02)
[2024-09-25] MEDS: NICOTINE 14 MG/24 HOURS TOPICAL PATCH TD SCH (10:03)
[2024-09-25] MEDS: chlordiazePOXIDE HCL 25 MG CAPSULE PO SCH (10:05)
[2024-09-25] MEDS: CITALOPRAM HYDROBROMIDE 20 MG TABLET PO SCH (10:13)
[2024-09-25 11:31] LABS: HEMATOCRIT 30.5 % (40.1-51.0); HEMOGLOBIN 9.5 g/dL (13.7-17.5); MCHC 31.1 g/dl (32.3-36.5); MEAN CELL VOLUME 68.8 fl (79.0-92.2); MEAN PLT VOLUME 9.9 fl (9.4-12.4); PLATELET COUNT 261 x10^3/uL (163-337); RDW 16.5 % (12.2-16.1)
[2024-09-25 11:32] LABS: CHLORIDE 100 mmol/L (98-107); POTASSIUM 4.1 mmol/L (3.5-5.1); SODIUM 135 mmol/L (136-145)
[2024-09-25 11:36] LABS: ANION GAP 7 mmol/L (4-13); CALCIUM 8.8 mg/dL (8.5-10.1); CO2 28 mmol/L (21-32)
[2024-09-25 11:37] LABS: ALBUMIN 3.4 g/dl (3.4-5.0); BLOOD UREA NITROGEN 8.5 mg/dL (7-18); GLUCOSE,RANDOM 103 mg/dL (74-106)
[2024-09-25 11:39] LABS: SGOT/AST 39 U/L (15-37); SGPT/ALT 25 U/L (13-61)
[2024-09-25 11:40] LABS: CREATININE 0.9 mg/dL (0.55-1.3)
[2024-09-25 11:41] LABS: BILIRUBIN,TOTAL 0.6 mg/dL (0.2-1); TOT PROT 7.5 g/dl (6.4-8.2)
[2024-09-25 11:42] LABS: ALK PHOS 100 U/L (45-117)
[2024-09-25] MEDS: GABAPENTIN 300 MG CAPSULE PO SCH (13:27)
[2024-09-25] MEDS ORDERED: risperiDONE 2 MG TABLET PO SCH (22:00)
[2024-09-25] MEDS: risperiDONE 1 MG TABLET PO SCH (22:28)
[2024-09-25] MEDS: QUEtiapine FUMARATE 100 MG TABLET (FP) PO SCH (22:28)
[2024-09-25] MEDS: METHOCARBAMOL 500 MG TABLET PO PRN (22:28)
[2024-09-26] MEDS: chlordiazePOXIDE HCL 25 MG CAPSULE PO SCH (05:57)
[2024-09-26] MEDS ORDERED: methaDONE HCL 10 MG TABLET PO SCH (06:00)
[2024-09-26] MEDS: MAGNESIUM HYDROX 2400MG/30ML ORAL SUSPENSION 30 ML CUP PO PRN (17:00)
[2024-09-27] MEDS ORDERED: chlordiazePOXIDE HCL 10 MG CAPSULE PO PRN
[2024-09-27] MEDS: chlordiazePOXIDE HCL 10 MG CAPSULE PO SCH (05:50)
[2024-09-28] MEDS: chlordiazePOXIDE HCL 10 MG CAPSULE PO SCH (05:50)
[2024-09-29] MEDS: chlordiazePOXIDE HCL 10 MG CAPSULE PO ONE (05:34)
[2024-09-29 09:14] VITALS: BP 104/60; PULSE 79; RESP 17; TEMP 97.9
== END 2024-09-29 09:58 | disposition other institution (70) | DRG 773 ==
LOC: YASAS 20:08 → Y6N 21:34
PROVIDERS: ADMIT Allergy & Immunology; ATTEND Allergy & Immunology
PROC: HZ2ZZZZ Detoxification Services for Substance Abuse Treatment (ICD-10-PCS; principal; 2024-09-24)
DX: F10.230 Alcohol dependence with withdrawal, uncomplicated (principal); F11.20 Opioid dependence, uncomplicated; F14.20 Cocaine dependence, uncomplicated; F17.210 Nicotine dependence, cigarettes, uncomplicated; F19.282 Other psychoactive substance dependence with psychoactive substance-induced sleep disorder; F25.1 Schizoaffective disorder, depressive type; F31.9 Bipolar disorder, unspecified; F19.24 Other psychoactive substance dependence with psychoactive substance-induced mood disorder; B18.2 Chronic viral hepatitis C; R63.6 Underweight; Z68.20 Body mass index [BMI] 20.0-20.9, adult
CPT/HCPCS: 36415; 80053; 80305; 80307; 85027; 86780; 93005; 93010

== ENCOUNTER 2024-12-27 18:40 | Inpatient (IN) | payer OTHER ==
[2024-12-27 19:07] VITALS: BMI 20.5
[2024-12-27] MEDS ORDERED: IBUPROFEN 400 MG TABLET (FP) PO PRN (22:40)
[2024-12-27] MEDS ORDERED: LOPERAMIDE HCL 2 MG CAPSULE PO PRN (22:40)
[2024-12-27] MEDS ORDERED: BENZOCAINE/MENTHOL (CHLORASEPTIC ) LOZENGE MM PRN (22:40)
[2024-12-27] MEDS ORDERED: MAG HYDROX/AL HYDROX/SIMETH 30 ML UNIT-DOSE CUP PO PRN (22:40)
[2024-12-27] MEDS ORDERED: P-EPHED 60MG/TRIPROLIDI 2.5MG TABLET PO PRN (22:40)
[2024-12-27] MEDS ORDERED: NALOXONE (NARCAN) HCL 4 MG/0.1 ML SPRAY NS PRN (22:40)
[2024-12-27] MEDS ORDERED: POLYETHYLENE GLYCOL (HEALTHYLAX) 3350 17 GM PACKET PO PRN (22:40)
[2024-12-27] MEDS ORDERED: BENZONATATE 200 MG CAPSULE PO PRN (22:40)
[2024-12-27] MEDS ORDERED: guaiFENesin 600 MG TABLET.ER (FP) PO PRN (22:40)
[2024-12-27] MEDS ORDERED: NALOXONE HCL 0.4 MG/ML VIAL IVPUSH PRN (22:40)
[2024-12-27] MEDS ORDERED: NICOTINE POLACRILEX 2 MG LOZENGE BC PRN (22:40)
[2024-12-27] MEDS ORDERED: MAGNESIUM HYDROX 2400MG/30ML ORAL SUSPENSION 30 ML CUP PO PRN (22:40)
[2024-12-28] MEDS: MELATONIN 5 MG TABLETS PO SCH (01:40)
[2024-12-28] MEDS: PRENATAL VITAMINS W/ FOLIC ACID TABLET (FP) PO SCH (09:44)
[2024-12-28] MEDS: METHOCARBAMOL 500 MG TABLET PO PRN (09:45)
[2024-12-28] MEDS: CITALOPRAM HYDROBROMIDE 20 MG TABLET PO SCH (15:10)
[2024-12-28] MEDS: GABAPENTIN 300 MG CAPSULE PO SCH (15:11)
[2024-12-28] MEDS: QUEtiapine FUMARATE 100 MG TABLET (FP) PO SCH (21:18)
[2024-12-28] MEDS: THIAMINE 100 MG TABLET PO SCH (21:18)
[2024-12-29] MEDS: IBUPROFEN 600 MG TABLET (FP) PO PRN (10:40)
[2024-12-29] MEDS: ACETAMINOPHEN 325 MG TABLET (FP) PO PRN (16:28)
[2024-12-30] MEDS: FERROUS SO4 325 MG TABLET (FP) PO SCH (09:28)
[2024-12-31] MEDS: TOLNAFTATE 1% CREAM 15 GM TUBE TP SCH (10:27)
[2024-12-31] MEDS: GABAPENTIN 300 MG CAPSULE PO SCH (14:39)
[2025-01-03] MEDS: FERROUS SO4 325 MG TABLET (FP) PO SCH (06:12)
[2025-01-10] MEDS: NICOTINE POLACRILEX 2 MG GUM BUC PRN (13:04)
[2025-01-12 07:00] VITALS: RESP 16
[2025-01-13 06:52] VITALS: TEMP 97.5
[2025-01-13 09:13] VITALS: BP 104/57; PULSE 76
== END 2025-01-13 10:10 | disposition home or self-care (01) | DRG 772 ==
LOC: YASAS 18:40 → Y3NR 12-28 01:52 → Y5N 12-28 02:14
PROVIDERS: ADMIT Allergy & Immunology; ATTEND Allergy & Immunology
PROC: HZ42ZZZ Group Counseling for Substance Abuse Treatment, Cognitive-Behavioral (ICD-10-PCS; principal; 2024-12-27)
DX: F11.20 Opioid dependence, uncomplicated (principal); F14.20 Cocaine dependence, uncomplicated; F10.20 Alcohol dependence, uncomplicated; F41.8 Other specified anxiety disorders; F31.9 Bipolar disorder, unspecified; F17.210 Nicotine dependence, cigarettes, uncomplicated; D64.9 Anemia, unspecified; F25.1 Schizoaffective disorder, depressive type
CPT/HCPCS: 36415; 80305; 80307; 86803; 87522; 87811